=== PATIENT | female | born 1940 | race Caucasian/White ===

== ENCOUNTER 2017-08-13 10:39 | Inpatient (IN) | payer OTHER ==
[~2017-08-13] VITALS: Ht 157.5 cm; Wt 75.9 kg
[2017-08-13] VITALS (12 sets, daily range): BP systolic 126–165; BP diastolic 64–96; PULSE 68–94; TEMP 36.5–36.9; O2SAT 89–99; Ht 157.5 cm; Wt 75.9 kg
[~2017-08-13 10:39] MED LIST: ACET-1346 PO; ALBU0.08 INH; ALUM-80 PO; ASPI81TA28 PO; BISA10SU5 PR; DOCU100C31 PO; FOLI1TAB8 PO; IPRASOL4 INH; LACT10SO17 PO; LSN5 PO; LSX40 PO; MAGNSUS73 PO; MCRK20 PO; NRN300 PO; NYST100098 TOP; PANT40TA PO; POLY1POW2 PO; PRD10 PO; SENN-65 PO; SIMV40TA4 PO; SODIENE PR; TPRSR25 PO
[2017-08-13] MEDS ORDERED: GABA-113 PO (11:07)
[2017-08-13] MEDS ORDERED: PRLSR20 PO (11:07)
[2017-08-13] MEDS ORDERED: AMLO-114 PO (11:07)
[2017-08-13] MEDS ORDERED: MULT-16 PO (11:07)
[2017-08-13] MEDS ORDERED: VNTHFA/IN INH (11:07)
[2017-08-13] MEDS ORDERED: LISI-725 PO (11:07)
[2017-08-13] MEDS ORDERED: SODIUM CHLORIDE 0.9% 1000ML 1,000 ML IV SCH (11:11)
--- NOTE | 2017-08-13 11:13 | EMERGENCY ROOM VISIT NOTE ---
History Report prepared by Thuy: Remi العلي Under the Supervision of: Dr. Darryl Doe D.O. First contact with patient: 10:51 Chief Complaint: BACK PAIN Stated Complaint: BACK PAIN History of Present Illness The patient is a 77 year old female via EMS who presents to the Emergency Room with complaints of persistent back pain this morning. Per the medics, the patient went to bend over, and has had persistent back pain ever since then. She states that the pain is across the middle of her back, and she has had back pain before. She describes her pain as an "ache". 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 She states that she was able to use the left hand when she woke up, and the back pain started before the loss of use of the left hand. The patient denies any chest pain or shortness of breath. She notes no history of a stroke. She says that she is not on any blood thinners. Source of History: patient, EMS, nursing staff Onset: This morning Position: back Quality: ache, other (pain) Timing: other (persistent) Associated Symptoms: No chest pain, No SOB Note: Associated symptoms: Loss of use of left hand starting around an hour and a half ago. Review of Systems See HPI for pertinent positives & negatives. A total of 10 systems reviewed and were otherwise negative. Past Medical & Surgical Medical Problems: (1) Dyslipidemia (2) Gastro-esophageal reflux (3) HTN (hypertension) (4) Hypertension (5) PAD (peripheral artery disease) (6) Peripheral vascular disease (7) SOB (shortness of breath) Surgical Problems: (1) H/O bilateral oophorectomy (2) H/O left breast biopsy (3) H/O oophorectomy (4) History of appendectomy (5) History of cataract surgery (6) History of colonoscopy (7) Hx of appendectomy (8) S/P femoral-popliteal bypass surgery Family History Asthma BROTHER FH: CAD (coronary artery disease) FATHER FH: CVA (cerebrovascular accident) FH: arthritis FATHER MOTHER BROTHER SISTER FH: cancer SISTER (esophageal) FH: diabetes mellitus BROTHER FH: esophageal cancer Stroke FATHER MOTHER Social History Smoking Status: Current Every Day Smoker Alcohol Use: none Drug Use: none Marital Status: Housing Status: lives with family Occupation Status: retired Current/Historical Medications Scheduled Amlodipine (Norvasc), 5 MG PO DAILY Aspirin (Aspirin Ec), 81 MG PO DAILY Folic Acid (Folvite), 1 MG PO DAILY Gabapentin (Neurontin), 300-600 MG PO TID Lisinopril (Zestril), 40 MG PO TID Metoprolol Succinate (Metoprolol Succinate ER), 25 MG PO QAM Multiple Vitamins W/ Minerals (Thera-M), 1 TAB PO DAILY Omeprazole (Prilosec), 20 MG PO DAILY Simvastatin (Zocor), 40 MG PO QPM Scheduled PRN Acetaminophen (Acetaminophen), 650 MG PO Q4H PRN for Mild Pain Albuterol Hfa (Ventolin Hfa), 2-4 PUFFS INH Q6H PRN for SOB/Wheezing Allergies Coded Allergies: Adhesives (Verified Allergy, Unknown, ., 08/13/17) Benzoin (Verified Allergy, Unknown, ., 08/13/17) Hydrogen Peroxide (Verified Allergy, Unknown, ., 08/13/17) Ceftriaxone (Unverified Adverse Reaction, Unknown, burning at site of injection, 08/13/17) Physical Exam Vital Signs Date Time Temp Pulse Resp B/P (MAP) Pulse Ox O2 Delivery O2 Flow Rate FiO2 08/13/17 15:00 81 18 153/69 97 Room Air 08/13/17 14:30 77 18 175/78 99 Nasal Cannula 3.0 08/13/17 14:15 81 18 177/76 96 Nasal Cannula 3.0 08/13/17 14:15 99 Nasal Cannula 3.0 08/13/17 14:01 168 08/13/17 14:01 72 08/13/17 14:00 84 16 148/85 98 Nasal Cannula 3.0 08/13/17 13:45 82 16 130/80 98 Nasal Cannula 3.0 08/13/17 13:30 85 14 159/80 96 Nasal Cannula 3.0 08/13/17 13:28 87 Room Air 08/13/17 13:15 87 15 168/92 95 Room Air 08/13/17 13:04 74 08/13/17 13:00 75 17 176/103 96 Room Air 08/13/17 12:45 77 17 167/79 94 Room Air 08/13/17 12:31 77 14 165/78 94 Room Air 08/13/17 12:22 84 30 166/82 94 Room Air 08/13/17 12:05 83 16 145/79 93 Room Air 08/13/17 12:00 80 22 159/109 92 Room Air 08/13/17 11:43 93 Room Air 08/13/17 11:35 86 18 148/100 93 Room Air 08/13/17 10:52 85 08/13/17 10:48 37.0 77 18 154/81 98 Room Air Physical Exam GENERAL: Patient is awake, alert, somewhat anxious appearing. EYES: The conjunctivae are clear. The pupils are round and reactive. EARS, NOSE, MOUTH AND THROAT: The nose is without any evidence of any deformity. Mucous membranes are moist tongue is midline NECK: The neck is nontender and supple. RESPIRATORY: Normal respiratory effort is noted there is no evidence of wheezing rhonchi or rales CARDIOVASCULAR: Regular rate and rhythm noted there no murmurs rubs or gallops normal S1 normal S2 GASTROINTESTINAL: The abdomen is soft. Bowel sounds are present in all quadrants. Abdomen is nontender BACK: No midline tenderness or or step-off noted. Range of motion appeared intact. MUSCULOSKELETAL/EXTREMITIES: There is no evidence of gross deformity full range of motion is noted in the hips and shoulders SKIN: There is no obvious evidence of any rash. There are no petechiae, pallor or cyanosis noted. NEUROLOGIC: Patient is awake alert and oriented x3, no facial droop noted. There was a drift in the left upper extremity. Patient was able to hold each leg off the bed for 5 seconds. Medical Decision & Procedures ER Provider Diagnostic Interpretation: Radiology results as stated below per my review and radiologist interpretation: HEAD WITHOUT CONTRAST (CT) CT DOSE: 638.56 mGycm HISTORY: Mental status change Stroke TECHNIQUE: Multiaxial CT images of the head were performed without the use of intravenous contrast. A dose lowering technique was utilized adhering to the principles of ALARA. Comparison: None. Findings: The paranasal sinuses and mastoid air cells are clear. The calvarium and skull base are intact. The ventricles and sulci are within normal limits. There is no mass, hematoma, midline shift, or acute infarct. Impression: No acute intracranial abnormality. Mild age-related atrophy and chronic small vessel change The above report was generated using voice recognition software. It may contain grammatical, syntax or spelling errors. Electronically signed by: Pankaj Al M.D. 08/13/2017 11:34 AM Dictated Date/Time: 08/13/2017 11:33 AM Study: CT angiography of the chest HISTORY: Pain. Mental status change. Findings. Generalized atherosclerotic change and ectasia thoracic aorta. No evidence for true aneurysm or dissection. Several small mediastinal and/or hilar nodes. Mild interstitial prominence throughout both hemithoraces suggesting nonspecific interstitial pneumonitis. No consolidative infiltrative changes. Minimal dependent basilar atelectatic change. Moderate degenerative disc change of the thoracic region. No evidence for compression deformity. IMPRESSION: No evidence for aneurysm or dissection. 2. Moderate atherosclerotic change thoracic aorta. 3. Slight generalized interstitial prominence throughout both hemithoraces raising the possibility of a mild diffuse interstitial pneumonitis. Electronically signed by: Pankaj Al M.D. 08/13/2017 11:46 AM Dictated Date/Time: 08/13/2017 11:[address] ANGIOGRAM OF THE BRAIN CLINICAL HISTORY: Left arm weakness. COMPARISON STUDY: CT of the brain dated 08/13/2017. TECHNIQUE: Following the IV administration of 94 cc of Optiray 320, CT angiogram of the brain was performed from the skull base to the vertex. Images are reviewed in the axial, sagittal, and coronal planes. 3-D MIPS images are created and assessed. IV contrast was administered without complication. A dose lowering technique was utilized adhering to the principles of ALARA. FINDINGS: Brain parenchyma: There are age-related involutional changes noting mild subcortical and periventricular microangiopathic disease. There is no hemorrhage, mass effect, or evidence of acute territorial ischemia by CT criteria. There is no evidence of enhancing mass lesion on the angiogram phase images. No extra-axial fluid collection is seen. Zamorano-white matter differentiation is preserved. Ventricles, sulci, and cisterns: Prominent secondary to involutional change. CT angiogram of the brain: There is atherosclerotic calcification of the cavernous carotid arteries. There is a right posterior communicating artery. The internal carotid arteries are widely patent, as are the anterior and middle cerebral arteries. The vertebrobasilar system and posterior cerebral arteries are widely patent. The vertebral arteries are codominant. There is no aneurysm, high-grade stenosis, or focal vessel cutoff identified throughout the intracranial circulation. Dural sinuses: Clear as visualized. Orbits: The bony orbits are intact. The orbital contents are normal as visualized noting bilateral ocular lens implants. Sinuses and mastoids: Trace mucosal thickening is seen in the left maxillary antrum. The remaining paranasal sinuses are clear. The mastoid air cells are well pneumatized. Calvarium: The skeletal structures are osteopenic. The calvarium appears intact. Soft tissues: A small lipoma is noted in the right frontal scalp on image #131. IMPRESSION: 1. There is no hemorrhage, mass effect, or evidence of acute territorial ischemia by CT criteria. 2. Unremarkable CT angiogram of the brain. Electronically signed by: Jasper Lemus M.D. 08/13/2017 11:52 AM Dictated Date/Time: 08/13/2017 11:46 AM NECK CTA HISTORY: Left upper extremity weakness. Assess for stroke. TECHNIQUE: Multiaxial CT images of the neck were performed following the intravenous administration of contrast to evaluate the major cervical vessels. Maximum intensity projection images were also obtained. All measurements were calculated based on NASCET criteria. A dose lowering technique was utilized adhering to the principles of ALARA. COMPARISON STUDY: Head CT 08/13/2017. Carotid Doppler 03/09/2013. FINDINGS: The aortic arch is normal in caliber. Focal mild narrowing of approximately 30% at the takeoff of the left subclavian artery. Otherwise, the remaining great vessels are patent. Mild calcified plaque seen within the bilateral carotid bifurcations without significant stenosis. Tortuous bilateral mid internal carotid arteries. Of note, the majority of the external carotid artery branches originate from the mid right internal carotid artery consistent with a high bifurcation. There is mild calcified plaque at this location. The bilateral common carotid arteries are widely patent. No significant stenosis within the bilateral vertebral arteries. IMPRESSION: No significant stenosis, occlusion, or dissection identified within the carotid or vertebral arteries. 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 Electronically signed by: Checo Castillo M.D. 08/13/2017 11:47 AM Dictated Date/Time: 08/13/2017 11:41 AM CHEST ONE VIEW PORTABLE HISTORY: Stroke symptoms. Back pain. COMPARISON: Chest CTA 08/13/2017. FINDINGS: Low lung volumes. No pleural effusions. No pneumothorax. The heart remains top normal in size. No new focal lung consolidations. Mild diffuse interstitial thickening. IMPRESSION: 1. Mild diffuse interstitial thickening which could be chronic. 2. The heart remains top normal in size. Electronically signed by: Checo Castillo M.D. 08/13/2017 12:04 PM Dictated Date/Time: 08/13/2017 12:03 PM Laboratory Results Test 08/13/17 11:14 08/13/17 11:51 08/13/17 13:05 Bedside Prothrombin Time INR 1.1 (0.9-1.1) Bedside Hemoglobin 13.6 g/dl (12.0-16.0) Bedside Hematocrit 40 % (37-47) Hypersegmented Polys 1+ Activated Partial Thromboplast Time 29.8 SECONDS (21.0-31.0) Partial Thromboplastin Ratio 1.1 Bedside Sodium 138 mEq/L (135-144) Bedside Potassium 4.5 mEq/L (3.3-5.0) Bedside Chloride 100 mEq/L (101-112) Bedside Total CO2 30 mEq/l (24-31) Bedside Blood Urea Nitrogen 15 mg/dl (7-18) Bedside Creatinine 0.8 mg/dl (0.6-1.3) Bedside Glucose (other) 142 mg/dl (70-99) Estimated Average Glucose 126 mg/dl Hemoglobin A1c 6.0 % (4.5-5.6) Bedside Ionized Calcium (Saroj) 1.16 mmol/l (1.12-1.32) Total Creatine Kinase 32 U/L (26-192) Creatine Kinase MB 0.5 ng/ml (0.5-3.6) Creatine Kinase MB Ratio 1.6 (0-3.0) Procalcitonin 0.08 ng/ml (0-0.5) Urine Color YELLOW Urine Appearance CLEAR (CLEAR) Urine pH 8.0 (4.5-7.5) Urine Specific Napoleon 1.038 (1.000-1.030) Urine Protein NEG (NEG) Urine Glucose (UA) NEG (NEG) Urine Ketones NEG (NEG) Urine Occult Blood 1+ (NEG) Urine Nitrite NEG (NEG) Urine Bilirubin NEG (NEG) Urine Urobilinogen NEG (NEG) Urine Leukocyte Esterase NEG (NEG) Urine WBC (Auto) 0 /hpf (0-5) Urine RBC (Auto) 10-30 /hpf (0-4) Urine Hyaline Casts (Auto) 0 /lpf (0-5) Urine Epithelial Cells (Auto) 20-30 /lpf (0-5) Urine Bacteria (Auto) NEG (NEG) Date/Time Source Procedure Growth Status 08/13/17 00:00 Nasal MRSA DNA Surveillance Screen - Final Specimen Negative for MRSA by DNA Probe Complete Laboratory results per my review. Medications Administered Medications (Trade) Dose Ordered Sig/Jessica Route Start Time Stop Time Status Last Admin Dose Admin Sodium Chloride 1,000 ml @ 50 mls/hr Q20H IV 08/13/17 11:11 08/13/17 17:32 DC 08/13/17 11:51 50 MLS/HR Alteplase, Recombinant 66.6 mg/Empty Bag 66.6 ml @ 66.6 mls/hr TODAY@1230 ONCE IV 08/13/17 12:30 08/13/17 13:29 DC 08/13/17 12:39 66.6 MLS/HR Alteplase, Recombinant 7.4 mg/Syringe 7.4 ml @ 7.4 mls/min TODAY@1230 IV 08/13/17 12:30 08/13/17 14:00 DC 08/13/17 12:40 7.4 MLS/MIN Ondansetron HCl (Zofran Inj) 4 mg NOW STAT IV 08/13/17 13:15 08/13/17 13:16 DC 08/13/17 13:28 4 MG Morphine Sulfate (MoRPHine SULFATE INJ) 4 mg Q15M PRN IV 08/13/17 13:15 08/13/17 17:32 DC 08/13/17 13:28 4 MG Acetaminophen (Tylenol Tab) 650 mg Q4H PRN PO 08/13/17 15:00 09/12/17 14:59 08/14/17 05:59 650 MG Morphine Sulfate (MoRPHine SULFATE INJ) 2 mg Q6H PRN IV 08/13/17 15:00 08/27/17 14:59 08/14/17 13:57 2 MG ECG Indication: weakness Rate (beats per minute): 83 Rhythm: normal sinus Findings: ST depression (Inferior), no ectopy Comparison ECG Date: changes are new compared to November 30 2015 ED Course 1107: The patient was evaluated in room A2. A complete history and physical examination were performed. 1111: Ordered NSS 1000 ml @ 50 mls/hr IV. 1202: I discussed the patient with Dr. Paco Christopher vascular neurology. 1226: I discussed the patient with Dr. Paco Christopher vascular neurology - we are a go for TPA. 1227: I reevaluated the patient and updated her and her family. 1230: Ordered Alteplase Recombinant 7.4 mg/Syringe 7.4 ml @ 7.4 mls/min IV. 1306: Upon reevaluation, the patient is resting. I discussed results and treatment plan with her. She verbalizes agreement and understanding. The patient will be evaluated for further management and care. 1320: I discussed the patient with Neha Martines. She will evaluate the patient for further treatment. 1338: I discussed the patient with Dr. Kay Martines cardiology. Medical Decision Differential diagnosis: Etiologies such as metabolic, infection, hypo/hyperglycemia, electrolyte abnormalities, cardiac sources, intracerebral event, toxicologic, neurologic, as well as others were entertained. Nursing notes reviewed. The patient is a 77-year-old female who presented to the emergency Department initially for back pain. On my questioning the patient admitted that she also had problems using her left arm since approximately 9 a.m. this morning. The patient was made a stroke alert immediately after this was discovered. The patient also stated that she had very significant back pain which she describes as thoracic back pain. It was not reproducible on physical exam. Given the patient's overall presentation I was concerned this could represent a dissection so radiographic studies were obtained including CT of the head neck and chest with contrast and angiography. There is no definite abnormality noted which could be consistent with dissection or stroke. For this reason I discussed her case with the stroke neurologist at [facility]. Because no other obvious contraindication could be found the patient was given TPA after discussing with the patient as well as her family via the stroke neurologist they consented to this care. The patient was reevaluated multiple times. She started having other symptoms and had serial EKGs. Her EKG did start to show some abnormalities which could be consistent with ischemia including ST segment depression and peaked hyperacute T waves. Certainly this could represent cerebral changes on the EKG but because of the changes I discussed her case with the on-call [facility] sub assembly team worker. I also discussed her case with the on-call [facility] hospitalist group. They have agreed to evaluate the patient in the emergency department for further management and disposition. The patient was reevaluated multiple times. She was found have an elevated white blood cell count although I'm unsure the cause of this at this time. Medication Reconcilliation Current Medication List: was personally reviewed by me Blood Pressure Screening Patient's blood pressure: Elevated blood pressure Blood pressure disposition: Elevated BP felt to be situational Consults Time Called: 1153 Consulting Physician: Dr. Paco Christopher vascular neurology Returned Call: 1202 I discussed the patient with Dr. Paco Christopher vascular neurology. Additional Consults: Time Called: 1224 Consulted Physician: Dr. Paco Christopher vascular neurology Returned Call: 1226 Additional Comments: I discussed the patient with Dr. Paco Christopher vascular neurology - we are a go for TPA. Time Called: 1315 Consulted Physician: Neha Martines Returned Call: 1320 Additional Comments: I discussed the patient with Neha Martines. She will evaluate the patient for further treatment. Impression Primary Impression: LUE weakness Additional Impressions: CVA (cerebral vascular accident) Back pain EKG, abnormal Critical Care I have personally spent greater than 40 minutes of critical care time in the direct management of this patient. This includes bedside care, interpretation of diagnostic studies, and testing, discussion with consultants, patient, and family members, and other required patient management activities. This 40 minutes is in excess of all separately billable procedures. Scribe Attestation The scribe's documentation has been prepared under my direction and personally reviewed by me in its entirety. I confirm that the note above accurately reflects all work, treatment, procedures, and medical decision making performed by me. Departure Information Dispostion Being Evaluated By Hospitalist Referrals Lora Jackson M.D. (MEDICAL) (PCP) Patient Instructions My [facility] Stroke History Time Last Known Well 0900 today Stroke t-PA Criteria Reviewed Meets criteria for t-PA Reason t-PA Not Given Treatment provided - N/A Problem Qualifiers Additional Impressions: CVA (cerebral vascular accident) CVA mechanism: unspecified Qualified Codes: I63.9 - Cerebral infarction, unspecified Back pain Back pain location: thoracic back pain Chronicity: acute Back pain laterality: midline Qualified Codes: M54.6 - Pain in thoracic spine
[2017-08-13] MEDS ORDERED: OPTIRAY 320 IV PRN (11:30)
--- NOTE | 2017-08-13 11:35 | DIAGNOSTIC IMAGING REPORT ---
HEAD WITHOUT CONTRAST (CT) CT DOSE: 638.56 mGycm HISTORY: Mental status change Stroke TECHNIQUE: Multiaxial CT images of the head were performed without the use of intravenous contrast. A dose lowering technique was utilized adhering to the principles of ALARA. Comparison: None. Findings: The paranasal sinuses and mastoid air cells are clear. The calvarium and skull base are intact. The ventricles and sulci are within normal limits. There is no mass, hematoma, midline shift, or acute infarct. Impression: No acute intracranial abnormality. Mild age-related atrophy and chronic small vessel change The above report was generated using voice recognition software. It may contain grammatical, syntax or spelling errors. Electronically signed by: Pankaj Al M.D. 08/13/2017 11:34 AM Dictated Date/Time: 08/13/2017 11:33 AM
--- NOTE | 2017-08-13 11:47 | DIAGNOSTIC IMAGING REPORT ---
Study: CT angiography of the chest HISTORY: Pain. Mental status change. Findings. Generalized atherosclerotic change and ectasia thoracic aorta. No evidence for true aneurysm or dissection. Several small mediastinal and/or hilar nodes. Mild interstitial prominence throughout both hemithoraces suggesting nonspecific interstitial pneumonitis. No consolidative infiltrative changes. Minimal dependent basilar atelectatic change. Moderate degenerative disc change of the thoracic region. No evidence for compression deformity. IMPRESSION: No evidence for aneurysm or dissection. 2. Moderate atherosclerotic change thoracic aorta. 3. Slight generalized interstitial prominence throughout both hemithoraces raising the possibility of a mild diffuse interstitial pneumonitis. Electronically signed by: Pankaj Al M.D. 08/13/2017 11:46 AM Dictated Date/Time: 08/13/2017 11:39 AM
--- NOTE | 2017-08-13 11:48 | DIAGNOSTIC IMAGING REPORT ---
NECK CTA HISTORY: Left upper extremity weakness. Assess for stroke. TECHNIQUE: Multiaxial CT images of the neck were performed following the intravenous administration of contrast to evaluate the major cervical vessels. Maximum intensity projection images were also obtained. All measurements were calculated based on NASCET criteria. A dose lowering technique was utilized adhering to the principles of ALARA. COMPARISON STUDY: Head CT 08/13/2017. Carotid Doppler 03/09/2013. FINDINGS: The aortic arch is normal in caliber. Focal mild narrowing of approximately 30% at the takeoff of the left subclavian artery. Otherwise, the remaining great vessels are patent. Mild calcified plaque seen within the bilateral carotid bifurcations without significant stenosis. Tortuous bilateral mid internal carotid arteries. Of note, the majority of the external carotid artery branches originate from the mid right internal carotid artery consistent with a high bifurcation. There is mild calcified plaque at this location. The bilateral common carotid arteries are widely patent. No significant stenosis within the bilateral vertebral arteries. IMPRESSION: No significant stenosis, occlusion, or dissection identified within the carotid or vertebral arteries. 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 Electronically signed by: Checo Castillo M.D. 08/13/2017 11:47 AM Dictated Date/Time: 08/13/2017 11:41 AM
--- NOTE | 2017-08-13 11:54 | DIAGNOSTIC IMAGING REPORT ---
CT ANGIOGRAM OF THE BRAIN CLINICAL HISTORY: Left arm weakness. COMPARISON STUDY: CT of the brain dated 08/13/2017. TECHNIQUE: Following the IV administration of 94 cc of Optiray 320, CT angiogram of the brain was performed from the skull base to the vertex. Images are reviewed in the axial, sagittal, and coronal planes. 3-D MIPS images are created and assessed. IV contrast was administered without complication. A dose lowering technique was utilized adhering to the principles of ALARA. FINDINGS: Brain parenchyma: There are age-related involutional changes noting mild subcortical and periventricular microangiopathic disease. There is no hemorrhage, mass effect, or evidence of acute territorial ischemia by CT criteria. There is no evidence of enhancing mass lesion on the angiogram phase images. No extra-axial fluid collection is seen. Zamorano-white matter differentiation is preserved. Ventricles, sulci, and cisterns: Prominent secondary to involutional change. CT angiogram of the brain: There is atherosclerotic calcification of the cavernous carotid arteries. There is a right posterior communicating artery. The internal carotid arteries are widely patent, as are the anterior and middle cerebral arteries. The vertebrobasilar system and posterior cerebral arteries are widely patent. The vertebral arteries are codominant. There is no aneurysm, high-grade stenosis, or focal vessel cutoff identified throughout the intracranial circulation. Dural sinuses: Clear as visualized. Orbits: The bony orbits are intact. The orbital contents are normal as visualized noting bilateral ocular lens implants. Sinuses and mastoids: Trace mucosal thickening is seen in the left maxillary antrum. The remaining paranasal sinuses are clear. The mastoid air cells are well pneumatized. Calvarium: The skeletal structures are osteopenic. The calvarium appears intact. Soft tissues: A small lipoma is noted in the right frontal scalp on image #131. IMPRESSION: 1. There is no hemorrhage, mass effect, or evidence of acute territorial ischemia by CT criteria. 2. Unremarkable CT angiogram of the brain. Electronically signed by: Jasper Lemus M.D. 08/13/2017 11:52 AM Dictated Date/Time: 08/13/2017 11:46 AM
[2017-08-13 12:03] LABS: HEMATOCRIT 41.6 % (37-47); HEMOGLOBIN 13.9 g/dL (12.0-16.0); MEAN CELL VOLUME 93.9 fL (80-100); MEAN CORPUSCULAR HEMOGLOBIN 31.4 pg (25-34); MEAN CORPUSCULAR HGB CONC 33.4 g/dl (32-36); MEAN PLATELET VOLUME 11.4 fL (7.4-10.4); PLATELET COUNT 279 K/uL (130-400); RED CELL DISTRIBUTION WIDTH CV 14.5 % (11.5-14.5); RED CELL DISTRIBUTION WIDTH SD 49.8 fL (36.4-46.3); WHITE BLOOD COUNT 20.39 K/uL (4.8-10.8)
--- NOTE | 2017-08-13 12:06 | DIAGNOSTIC IMAGING REPORT ---
CHEST ONE VIEW PORTABLE HISTORY: Stroke symptoms. Back pain. COMPARISON: Chest CTA 08/13/2017. FINDINGS: Low lung volumes. No pleural effusions. No pneumothorax. The heart remains top normal in size. No new focal lung consolidations. Mild diffuse interstitial thickening. IMPRESSION: 1. Mild diffuse interstitial thickening which could be chronic. 2. The heart remains top normal in size. Electronically signed by: Checo Castillo M.D. 08/13/2017 12:04 PM Dictated Date/Time: 08/13/2017 12:03 PM
[2017-08-13 12:21] LABS: CALCIUM 8.9 mg/dl (8.5-10.1); CREATININE 0.85 mg/dl (0.60-1.20); POTASSIUM 4.4 mmol/L (3.5-5.1)
[2017-08-13 12:26] LABS: BASO % 0.2 %; BASO ABS # 0.04 K/uL (0-0.2); CKMB 0.5 ng/ml (0.5-3.6); EOS % 0.2 %; EOS ABS # 0.05 K/uL (0-0.5); IG# 0.09 K/uL (0.00-0.02); LYMPH % 6.3 %; LYMPH ABS # 1.28 K/uL (1.2-3.4); MONO ABS # 3.87 K/uL (0.11-0.59); NEUT % 73.9 %; NEUT ABS # 15.06 K/uL (1.4-6.5)
[2017-08-13 12:27] LABS: PTT PATIENT 29.8 SECONDS (21.0-31.0)
[2017-08-13] MEDS ORDERED: ALTEPLASE IV ONE (12:30)
[2017-08-13] MEDS ORDERED: ALTEPLASE IV SCH (12:30)
[2017-08-13] MEDS ORDERED: RECOMBINANT IV ONE (12:30)
[2017-08-13] MEDS ORDERED: RECOMBINANT IV SCH (12:30)
[2017-08-13] MEDS ORDERED: SET 2260-0500 IV ONE (12:30)
[2017-08-13] MEDS ORDERED: MoRPHine SULFATE 4 MG/ML 1 ML CARP\\VIAL IV PRN (13:15)
[2017-08-13] MEDS ORDERED: ONDANSETRON INJ 2 MG/ML 2 ML VIAL IV STA (13:15)
--- NOTE | 2017-08-13 14:04 | History and Physical ---
History & Physical Date & Time of Service: Aug 13, 2017 at 14:04 Chief Complaint: Back Pain Primary Care Physician: Lora Jackson M.D. (MEDICAL) History of Present Illness Source: patient Patient is a 77 yr female with PMH of PVD, HLP, HTN, GERD, CKD III and other problems presents with history of back pain and LUE weakness which started today. 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 She sates that she was not able to move her fingers and "I felt funny". Patient states back pain is non radiating, dull, constant which improved while in ED and has history of chronic back pain. She reports nausea but denies vomiting. Patient had CT head which showed no acute findings and ED physician discussed with [facility] neurology and patient received tPA while in ED. Patient later showed some improvement of LUE weakness post tPA. Denies any history of chest pain, SOB, dizziness, cough, fever, chills, fall, head trauma, LOC, headache, change in vision, double/blurry vision, vertigo, slurred speech, facial deformity, bowel/bladder incontinence, abdominal pain, diarrhea, dysuria. She is on Aspirin at home and admits to taking it today Past Medical/Surgical History Medical Problems: (1) Dyslipidemia Status: Chronic (2) Gastro-esophageal reflux Status: Chronic (3) HTN (hypertension) Status: Chronic (4) Hypertension Status: Chronic (5) PAD (peripheral artery disease) Status: Chronic (6) Peripheral vascular disease Status: Chronic Surgical Problems: (1) H/O bilateral oophorectomy Status: Resolved (2) H/O left breast biopsy Status: Resolved (3) H/O oophorectomy Status: Resolved (4) History of appendectomy Status: Resolved (5) History of cataract surgery Status: Resolved (6) History of colonoscopy Status: Resolved (7) Hx of appendectomy Status: Resolved (8) S/P femoral-popliteal bypass surgery Status: Resolved Family History Asthma BROTHER FH: CAD (coronary artery disease) FATHER FH: CVA (cerebrovascular accident) FH: arthritis FATHER MOTHER BROTHER SISTER FH: cancer SISTER (esophageal) FH: diabetes mellitus BROTHER FH: esophageal cancer Stroke FATHER MOTHER Reviewed Social History Smoking Status: Current Every Day Smoker Alcohol Use: none Drug Use: none Marital Status: Housing status: lives with family Occupational Status: retired Immunizations History of Influenza Vaccine: Yes Influenza Vaccine Date: Aug 09, 2012 History of Tetanus Vaccine?: Yes Tetanus Immunization Date: December 15, 2001 History of Pneumococcal: Yes Pneumococcal Date: Jan 07, 2013 History of Hepatitis B Vaccine: Unknown Hepatitis Immunization Date: December 15, 2001 Multi-Drug Resistant Organisms History of MDRO: No Allergies Coded Allergies: Adhesives (Verified Allergy, Unknown, ., 08/13/17) Benzoin (Verified Allergy, Unknown, ., 08/13/17) Hydrogen Peroxide (Verified Allergy, Unknown, ., 08/13/17) Ceftriaxone (Unverified Adverse Reaction, Unknown, burning at site of injection, 08/13/17) Home Medications Scheduled Amlodipine (Norvasc), 5 MG PO DAILY Aspirin (Aspirin Ec), 81 MG PO DAILY Folic Acid (Folvite), 1 MG PO DAILY Gabapentin (Neurontin), 300-600 MG PO TID Lisinopril (Zestril), 40 MG PO TID Metoprolol Succinate (Metoprolol Succinate ER), 25 MG PO QAM Multiple Vitamins W/ Minerals (Thera-M), 1 TAB PO DAILY Omeprazole (Prilosec), 20 MG PO DAILY Simvastatin (Zocor), 40 MG PO QPM Scheduled PRN Acetaminophen (Acetaminophen), 650 MG PO Q4H PRN for Mild Pain Albuterol Hfa (Ventolin Hfa), 2-4 PUFFS INH Q6H PRN for SOB/Wheezing Review of Systems See HPI for pertinent positives & negatives. A total of 10 systems reviewed and were otherwise negative. Physical Exam Vital Signs Date Time Temp Pulse Resp B/P (MAP) Pulse Ox O2 Delivery O2 Flow Rate FiO2 08/13/17 13:45 82 16 130/80 98 Nasal Cannula 3.0 08/13/17 13:30 85 14 159/80 96 Nasal Cannula 3.0 08/13/17 13:28 87 Room Air 08/13/17 13:15 87 15 168/92 95 Room Air 08/13/17 13:04 74 08/13/17 13:00 75 17 176/103 96 Room Air 08/13/17 12:45 77 17 167/79 94 Room Air 08/13/17 12:31 77 14 165/78 94 Room Air 08/13/17 12:22 84 30 166/82 94 Room Air 08/13/17 12:05 83 16 145/79 93 Room Air 08/13/17 12:00 80 22 159/109 92 Room Air 08/13/17 11:43 93 Room Air 08/13/17 11:35 86 18 148/100 93 Room Air 08/13/17 10:52 85 08/13/17 10:48 37.0 77 18 154/81 98 Room Air General Appearance: WD/WN, no apparent distress Head: normocephalic, atraumatic Eyes: normal inspection, PERRL, EOMI, sclerae normal ENT: normal ENT inspection, hearing grossly normal Neck: supple, trachea midline Respiratory/Chest: chest non-tender, lungs clear, no respiratory distress, no accessory muscle use, + decreased breath sounds Cardiovascular: regular rate, rhythm, no edema, no murmur Abdomen/GI: normal bowel sounds, non tender, soft Back: + pertinent finding (Mid thoracic tenderness of spine) Extremities/Musculoskelatal: normal inspection, no pedal edema 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, alert, normal mood/affect, oriented x 3, + pertinent finding (Left upper extrtemity weakness, sensation intact) Skin: normal color, warm/dry Diagnostics Laboratory Results Results Past 24 Hours Test 08/13/17 11:14 08/13/17 11:51 08/13/17 13:05 Range/Units Bedside Prothrombin Time INR 1.1 0.9-1.1 White Blood Count 20.39 4.8-10.8 K/uL Red Blood Count 4.43 4.2-5.4 M/uL Hemoglobin 13.9 12.0-16.0 g/dL Hematocrit 41.6 37-47 % Mean Corpuscular Volume 93.9 80-100 fL Mean Corpuscular Hemoglobin 31.4 25-34 pg Mean Corpuscular Hemoglobin Concent 33.4 32-36 g/dl Platelet Count 279 130-400 K/uL Mean Platelet Volume 11.4 7.4-10.4 fL Neutrophils (%) (Auto) 73.9 % Lymphocytes (%) (Auto) 6.3 % Monocytes (%) (Auto) 19.0 % Eosinophils (%) (Auto) 0.2 % Basophils (%) (Auto) 0.2 % Neutrophils # (Auto) 15.06 1.4-6.5 K/uL Lymphocytes # (Auto) 1.28 1.2-3.4 K/uL Monocytes # (Auto) 3.87 0.11-0.59 K/uL Eosinophils # (Auto) 0.05 0-0.5 K/uL Basophils # (Auto) 0.04 0-0.2 K/uL RDW Standard Deviation 49.8 36.4-46.3 fL RDW Coefficient of Variation 14.5 11.5-14.5 % Immature Granulocyte % (Auto) 0.4 % Immature Granulocyte # (Auto) 0.09 0.00-0.02 K/uL Hypersegmented Polys 1+ Prothrombin Time 10.7 9.0-12.0 SECONDS Prothromb Time International Ratio 1.0 0.9-1.1 Activated Partial Thromboplast Time 29.8 21.0-31.0 SECONDS Partial Thromboplastin Ratio 1.1 Sodium Level 137 136-145 mmol/L Potassium Level 4.4 3.5-5.1 mmol/L Chloride Level 103 98-107 mmol/L Carbon Dioxide Level 29 21-32 mmol/L Anion Gap 5.0 3-11 mmol/L Blood Urea Nitrogen 16 7-18 mg/dl Creatinine 0.85 0.60-1.20 mg/dl Est Creatinine Clear Calc Drug Dose 56.5 ml/min Estimated GFR () 77.7 Estimated GFR (Non- 67.0 BUN/Creatinine Ratio 18.9 10-20 Random Glucose 142 70-99 mg/dl Calcium Level 8.9 8.5-10.1 mg/dl Magnesium Level 2.1 1.8-2.4 mg/dl Total Creatine Kinase 32 26-192 U/L Creatine Kinase MB 0.5 0.5-3.6 ng/ml Creatine Kinase MB Ratio 1.6 0-3.0 Troponin I 0.031 0-0.045 ng/ml Urine Color YELLOW Urine Appearance CLEAR CLEAR Urine pH 8.0 4.5-7.5 Urine Specific [place] 1.038 1.000-1.030 Urine Protein NEG NEG Urine Glucose (UA) NEG NEG Urine Ketones NEG NEG Urine Occult Blood 1+ NEG Urine Nitrite NEG NEG Urine Bilirubin NEG NEG Urine Urobilinogen NEG NEG Urine Leukocyte Esterase NEG NEG Urine WBC (Auto) 0 0-5 /hpf Urine RBC (Auto) 10-30 0-4 /hpf Urine Hyaline Casts (Auto) 0 0-5 /lpf Urine Epithelial Cells (Auto) 20-30 0-5 /lpf Urine Bacteria (Auto) NEG NEG Diagnostic Radiology CT Head: No acute intracranial abnormality. Mild age-related atrophy and chronic small vessel change CXR: 1. Mild diffuse interstitial thickening which could be chronic. 2. The heart remains top normal in size. CT dissection: No evidence for aneurysm or dissection. 2. Moderate atherosclerotic change thoracic aorta. 3. Slight generalized interstitial prominence throughout both hemithoraces raising the possibility of a mild diffuse interstitial pneumonitis. CT angio Brain: 1. There is no hemorrhage, mass effect, or evidence of acute territorial ischemia by CT criteria. 2. Unremarkable CT angiogram of the brain. CTA neck: No significant stenosis, occlusion, or dissection identified within the carotid or vertebral arteries. 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 ECHO: Left ventricular systolic function is normal. * Ejection Fraction = 65-70%. * There is mild concentric left ventricular hypertrophy. * The left atrium is moderately dilated. * There is severe mitral annular calcification. * There is mild mitral regurgitation. * Aortic valve sclerosis moderate, without significant aortic valvular stenosis. * Grade I diastolic dysfunction, (abnormal relaxation pattern). EKG EKG: NSR, Peaked T waves in I, II, V3, V4, V5, Non specific ST changes in inferior lead Impression Assessment and Plan Acute CVA: S/P tPA Admit in ICU CT head: showed no acute pathology CTA Head, neck: No acute process CT dissection: Negative Stroke work up including lipid panel, A1C, MRI Brain, ECHO Speech and swallow eval Hold aspirin as S/P tPA Continue Lipitor Neuro checks, Neurology/Client Technical Professional consulted PT/OT Allow permissive HTN in setting of acute CVA Repeat CT head in AM Avoid antiplatelets, anticoagulants for now Back Pain: H/O chronic back pain CT dissection: Negative Will get X ray of spine Pain control PT/OT Consider CT if necessary Leukocytosis/Lactic acidosis: No obvious source of infection Normal Procalcitonin CXR:Mild diffuse interstitial thickening which could be chronic UA: no signs of UTI IV fluids Repeat Lactate levels No Abx for now Abnormal ECG: ST -T wave changes likely secondary to CVA No regional wall motion abnormalities noted on ECHO Troponin: negative Trend cardiac enzymes PVD/ HLP: Hold Aspirin Continue Lipitor HTN: Hold HTN meds for permissive HTN GERD Continue PPI CKD III Cr at baseline monitor renal function Ongoing 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
[2017-08-13] MEDS ORDERED: ICU PROTOCOL FOR HYPERGLYCEMIA PRN (15:00)
[2017-08-13] MEDS ORDERED: NITROGLYCERIN 0.4 MG SL PER TAB CHARGE SL PRN (15:00)
[2017-08-13] MEDS ORDERED: PHARMACIST DISCHARGE MED REC CONSULT PRN (15:00)
[2017-08-13] MEDS ORDERED: ALBUTEROL HFA 8 GM INHALER INH PRN (15:15)
[2017-08-13] MEDS ORDERED: ALBUT/IPRATROP 3MG/0.5MG NEB 3 ML VIAL INH PRN (15:15)
[2017-08-13] MEDS ORDERED: ATORVASTATIN 40 MG TAB PO ONE (15:15)
[2017-08-13] MEDS ORDERED: SODIUM CHLORIDE 0.9% 1000ML 1,000 ML IV ONE ×2 (15:30→22:45)
[2017-08-13] MEDS ORDERED: ONDANSETRON INJ 2 MG/ML 2 ML VIAL IV PRN (15:30)
--- NOTE | 2017-08-13 17:00 | ECHOCARDIOGRAM REPORT ---
*NOTICE TO RECEIVING CONSTITUTION PARTY AGENCY This information is strictly Confidential and protected under [place] law. [place] law prohibits you from making any further disclosure of this information unless further disclosure is expressly permitted by the written consent of the person to whom it pertains or is authorized by law. A general authorization for the release of medical or other information is not sufficient for this purpose. Hospital accepts no responsibility if the information is made available to any other person, INCLUDING THE PATIENT. Interpretation Summary * Name: LOS CALHOUN Study Date: 08/13/2017 02:58 PM BP: 175/78 mmHg * Patient Location: [facility] HR: 77 * : 1940 (M/d/yyyy) Gender: Female Height: 62 in * Age: 77 yrs Ethnicity: CA Weight: 179 lb * Ordering Physician: Darryl Doe * Referring Physician: Self, Referred * Performed By: Becca Perez RDCS * * Reason For Study: Chest pain * BSA: 1.8 m2 * The study was technically adequate. * Compared to prior study, changes are noted. * -- Conclusions -- * Left ventricular systolic function is normal. * Ejection Fraction = 65-70%. * There is mild concentric left ventricular hypertrophy. * The left atrium is moderately dilated. * There is severe mitral annular calcification. * There is mild mitral regurgitation. * Aortic valve sclerosis moderate, without significant aortic valvular stenosis. * Grade I diastolic dysfunction, (abnormal relaxation pattern). Procedure Details * A complete two-dimensional transthoracic echocardiogram was performed (2D, M-mode, Doppler and color flow Doppler). * A contrast injection of Definity was performed to improve assessment of LV function. * Contrast was injected into an intravenous site in the right arm. * One vial of Definity ultrasound contrast was diluted in normal saline to a total volume of 10 ml. A total of '2' ml of solution was administered during imaging. * Lot # [id number] of Definity utilized for procedure. * Expiration date SEP 22. * The attending nurse who injected the contrast agent was Zackery Menard RN. Left Ventricle * The left ventricle is normal in size. * There is no thrombus. * There is mild concentric left ventricular hypertrophy. * Ejection Fraction = 65-70%. * Left ventricular systolic function is normal. * No regional wall motion abnormalities noted. Right Ventricle * The right ventricle is normal size. * The right ventricular systolic function is normal as assessed by tricuspid annular plane systolic excursion (TAPSE) (normal >1.5 cm). Atria * The left atrium is moderately dilated. * Right atrial size is normal. * There is no evidence of atrial septal defect, but resolution does not allow assessment for a patent foramen ovale. Mitral Valve * There is severe mitral annular calcification. * There is no mitral valve stenosis. * There is mild mitral regurgitation. Tricuspid Valve * The tricuspid valve is normal. * There is no tricuspid stenosis. * Significant tricuspid regurgitation is absent. Aortic Valve * The aortic valve is trileaflet. * Aortic valve sclerosis moderate, without significant aortic valvular stenosis. * Aortic stenosis is absent. * There is no significant aortic regurgitation. Pulmonic Valve * The pulmonary valve is not well seen, but the Doppler examination is normal without significant regurgitation or stenosis. Great Vessels * The aortic root and proximal ascending aorta are normal sized. Pericardium/Pleural * There is no pericardial effusion. Great Vessels * Normal inferior vena cava diameter and respiratory variation suggests normal central venous pressure. Left Ventricular Diastolic Function * Grade I diastolic dysfunction, (abnormal relaxation pattern). MMode 2D Measurements and Calculations IVSd 1.0 cm LVIDd 4.1 cm LVIDs 2.9 cm LVPWd 10 cm IVS/LVPW 1.0 FS 30.1 % EDV(Teich) 75.9 ml ESV(Teich) 32.0 ml EF(Teich) 57.9 % EDV(cubed) 70.9 ml ESV(cubed) 24.2 ml EF(cubed) 65.9 % LV mass(C)d 135.1 grams LV mass(C)dI 74.1 grams/m\S\2 SV(Teich) 43.9 ml SI(Teich) 24.1 ml/m\S\2 SV(cubed) 46.7 ml SI(cubed) 25.6 ml/m\S\2 Ao root diam 2.7 cm Ao root area 5.8 cm\S\2 ACS 1.2 cm LA dimension 4.7 cm asc Aorta Diam 2.9 cm LA/Ao 1.7 LVOT diam 1.9 cm LVOT area 2.9 cm\S\2 LVAd ap4 28.9 cm\S\2 LVLd ap4 7.2 cm EDV(MOD-sp4) 95.6 ml EDV(sp4-el) 98.5 ml LVAs ap4 16.5 cm\S\2 LVLs ap4 5.6 cm ESV(MOD-sp4) 39.0 ml ESV(sp4-el) 41.0 ml EF(MOD-sp4) 59.2 % EF(sp4-el) 58.4 % LVAd ap2 26.2 cm\S\2 LVLd ap2 7.2 cm EDV(MOD-sp2) 76.9 ml EDV(sp2-el) 81.0 ml LVAs ap2 14.7 cm\S\2 LVLs ap2 5.6 cm ESV(MOD-sp2) 31.9 ml ESV(sp2-el) 32.7 ml EF(MOD-sp2) 58.5 % EF(sp2-el) 59.7 % LVLd %diff 0 % EDV(MOD-bp) 85.8 ml LVLs %diff -0.05 % ESV(MOD-bp) 35.1 ml EF(MOD-bp) 59.1 % SV(MOD-sp4) 56.6 ml SI(MOD-sp4) 31.0 ml/m\S\2 SV(MOD-sp2) 44.9 ml SI(MOD-sp2) 24.6 ml/m\S\2 SV(MOD-bp) 50.7 ml SI(MOD-bp) 27.8 ml/m\S\2 SV(sp4-el) 57.5 ml SI(sp4-el) 31.5 ml/m\S\2 SV(sp2-el) 48.3 ml SI(sp2-el) 26.5 ml/m\S\2 Doppler Measurements and Calculations MV E max luisa 128.5 cm/sec MV A max luisa 154.2 cm/sec MV E/A 0.83 MV dec time 0.27 sec Ao V2 max 150.7 cm/sec Ao max PG 9.1 mmHg Ao max PG (full) 1.3 mmHg SERGEY(V,A) 2.7 cm\S\2 SERGEY(V,D) 2.7 cm\S\2 LV V1 max PG 7.8 mmHg LV V1 max 139.6 cm/sec PA V2 max 89.6 cm/sec PA max PG 3.2 mmHg PA acc slope 469.8 cm/sec\S\2 PA acc time 0.14 sec TR max luisa 257.9 cm/sec PA pr(Accel) 17.2 mmHg
[2017-08-13] MEDS ORDERED: SODIUM CHLORIDE 0.9% 1000ML 500 ML IV ONE (17:15)
--- NOTE | 2017-08-13 17:38 | DIAGNOSTIC IMAGING REPORT ---
ULTRASOUND OF THE CAROTID ARTERIES CLINICAL HISTORY: Stroke COMPARISON STUDY: 03/09/2013, MR angiography neck dated 08/13/2017 TECHNIQUE: Real-time, grayscale, and color Doppler sonography of the carotid arteries was performed. Imaging reviewed in the transverse and longitudinal planes. NASCET criteria was utilized for stenosis calcification. FINDINGS: There is a high bifurcation. The distal internal carotid arteries were difficult to delineate. Right external carotid artery was nonvisualized. There is mild atherosclerotic plaque present . The peak systolic velocity within the right internal carotid artery is 151 cm/sec. The systolic velocity ratio of right internal to common carotid artery is 2.4. The peak systolic velocity within the left internal carotid artery is 106 cm/sec. The systolic velocity ratio left internal to common carotid artery is 1.5. Antegrade flow is seen in the vertebral arteries. The external carotid arteries are patent. Blood pressure in the right arm measured 169 mm/Hg. Blood pressure in the left arm measured 179 mm/Hg. There are mildly elevated velocities of the right internal carotid artery. The waveforms however appear otherwise unremarkable and on grayscale, no stenosis is visualized. No turbulence is visualized on color flow. There is no corresponding stenosis on the CT angiogram performed the same day. A hemodynamically significant stenosis is therefore not felt to be present. IMPRESSION: No evidence of unilaterally significant stenosis. Please see above discussion. Electronically signed by: Varun Sandoval M.D. 08/13/2017 5:37 PM Dictated Date/Time: 08/13/2017 5:31 PM
[2017-08-13] MEDS ORDERED: GADAVIST IV PRN (20:00)
--- NOTE | 2017-08-13 20:02 | Critical Care Consultation ---
Critical Care Consultation Date of Consultation: Aug 13, 2017. Attending Physician: Heraclio Elam M.D. Reason for Consultation: 77-year-old female with acute RIGHT-sided hemispheric CVA with LEFT upper extremity deficit receiving alteplase in the ER. Admitted for close hemodynamic /neurologic monitoring. History of Present Illness Patient is a 77-year-old female with a significant past medical history of hypertension, hyperlipidemia, and peripheral arterial disease who experienced LEFT upper extremity weakness early this morning at approximately 9:30 AM. She was subtotally brought to the emergency department and underwent evaluation for CVA symptoms. She received TPA for stroke like symptoms. She was found to have a moderate leukocytosis of greater than 20,000. She was not anemic. She was not hypercoagulable. No significant electrolyte derangement. Initial cardiac enzymes were negative. EKG was unremarkable. Patient did undergo CTA of the chest for concerns of possible dissection with complaints of upper back discomfort. Upon arrival to the ICU, the patient had just underwent MRI of the brain. Patient reports that she felt well upon awakening this morning, however reports that at approximately 9:30 AM, she developed an acute onset of LEFT-sided upper extremity weakness. Eventually, the patient presented to the ER for further evaluation. In addition to this episode, she was complaining of upper back pain. She describes this pain as significant and reports that it waxes and wanes approximately 2-3 times per week. Her pain was adequately controlled the emergency department with morphine and she reports minimal discomfort at this time. The patient complains of a mild headache at this point. She denies any blurry vision, double vision, slurred speech, neck pain/stiffness, nausea, vomiting, chest pain, palpitations, shortness of breath, pleuritic pain, or extremity pain. Patient is a daily smoker. She denies any significant alcohol or other substance use. Past Medical/Surgical History Medical Problems: (1) Dyslipidemia (2) Gastro-esophageal reflux (3) HTN (hypertension) (4) Hypertension (5) PAD (peripheral artery disease) (6) Peripheral vascular disease (7) SOB (shortness of breath) Surgical Problems: (1) H/O bilateral oophorectomy (2) H/O left breast biopsy (3) H/O oophorectomy (4) History of appendectomy (5) History of cataract surgery (6) History of colonoscopy (7) Hx of appendectomy (8) S/P femoral-popliteal bypass surgery Family History Asthma BROTHER FH: CAD (coronary artery disease) FATHER FH: CVA (cerebrovascular accident) FH: arthritis FATHER MOTHER BROTHER SISTER FH: cancer SISTER (esophageal) FH: diabetes mellitus BROTHER FH: esophageal cancer Stroke FATHER MOTHER Significant FHx of CVA Social History Smoking Status: Current Every Day Smoker Smokeless Tobacco Use: No Alcohol Use: none Drug Use: none Marital Status: Housing Status: lives with family Occupation Status: retired Allergies Coded Allergies: Adhesives (Verified Allergy, Unknown, ., 08/13/17) Benzoin (Verified Allergy, Unknown, ., 08/13/17) Hydrogen Peroxide (Verified Allergy, Unknown, ., 08/13/17) Ceftriaxone (Unverified Adverse Reaction, Unknown, burning at site of injection, 08/13/17) Home Medications Scheduled Amlodipine (Norvasc), 5 MG PO DAILY Aspirin (Aspirin Ec), 81 MG PO DAILY Folic Acid (Folvite), 1 MG PO DAILY Gabapentin (Neurontin), 300-600 MG PO TID Lisinopril (Zestril), 40 MG PO TID Metoprolol Succinate (Metoprolol Succinate ER), 25 MG PO QAM Multiple Vitamins W/ Minerals (Thera-M), 1 TAB PO DAILY Omeprazole (Prilosec), 20 MG PO DAILY Simvastatin (Zocor), 40 MG PO QPM Scheduled PRN Acetaminophen (Acetaminophen), 650 MG PO Q4H PRN for Mild Pain Albuterol Hfa (Ventolin Hfa), 2-4 PUFFS INH Q6H PRN for SOB/Wheezing Current Inpatient Medications Current Inpatient Medications Medications (Trade) Dose Ordered Sig/Jessica Route Start Time Stop Time Status Last Admin Dose Admin Ioversol (Optiray 320) 111 ml UD PRN IV 08/13/17 11:30 08/17/17 11:29 Atorvastatin Calcium (Lipitor Tab) 40 mg QAM PO 08/14/17 09:00 09/13/17 08:59 Miscellaneous Information (Pharmacist Discharge Med Rec Consult) 1 ea UD PRN N/A 08/13/17 15:00 09/12/17 14:59 Acetaminophen (Tylenol Tab) 650 mg Q4H PRN PO 08/13/17 15:00 09/12/17 14:59 Nitroglycerin (Nitrostat Tab) 0.4 mg UD PRN SL 08/13/17 15:00 09/12/17 14:59 Morphine Sulfate (MoRPHine SULFATE INJ) 2 mg Q6H PRN IV 08/13/17 15:00 08/27/17 14:59 Miscellaneous Information (Icu Protocol For Hyperglycemia) 1 ea PRN PRN N/A 08/13/17 15:00 08/15/17 14:59 Albuterol/ Ipratropium (Duoneb) 3 ml Q4H PRN INH 08/13/17 15:15 09/12/17 15:14 Albuterol (Ventolin Hfa Inhaler) 2 puffs Q6H PRN INH 08/13/17 15:15 09/12/17 15:14 Gabapentin (Neurontin Cap) 300 mg TID PO 08/13/17 21:00 09/12/17 20:59 Metoprolol Succinate (Toprol Xl Tab) 25 mg QAM PO 08/14/17 09:00 09/13/17 08:59 Pantoprazole Sodium (Protonix Tab) 40 mg DAILY PO 08/14/17 09:00 09/13/17 08:59 Ondansetron HCl (Zofran Inj) 4 mg Q6H PRN IV 08/13/17 15:30 09/12/17 15:29 Sodium Chloride 1,000 ml @ 50 mls/hr Q20H ONCE IV 08/13/17 15:30 08/14/17 11:29 Gadobutrol (Gadavist) 8 mmol UD PRN IV 08/13/17 20:00 08/17/17 19:59 UNV Review of Systems A complete 10-point Review of Systems was discussed with the patient, with pertinent positives and negatives listed in the History of Present Illness. All remaining Review of Systems questions can be considered negative unless otherwise specified. Physical Exam Date Time Temp Pulse Resp B/P (MAP) Pulse Ox O2 Delivery O2 Flow Rate FiO2 08/13/17 19:30 92 18 162/96 (118) Nasal Cannula 2.0 08/13/17 19:00 83 18 153/91 (111) 95 Nasal Cannula 2.0 08/13/17 18:30 94 16 153/94 (113) 98 1/10/18 18:00 80 16 165/78 (107) 94 Nasal Cannula 2.0 08/13/17 17:30 80 19 159/77 (104) 89 08/13/17 17:05 36.5 85 20 154/79 (104) 89 Room Air 08/13/17 16:30 37.0 81 18 164/73 99 2.0 08/13/17 16:00 82 18 156/76 99 Room Air 08/13/17 15:30 82 18 143/73 98 Room Air 08/13/17 15:00 81 18 153/69 97 Room Air 08/13/17 14:30 77 18 175/78 99 Nasal Cannula 3.0 08/13/17 14:15 81 18 177/76 96 Nasal Cannula 3.0 08/13/17 14:15 99 Nasal Cannula 3.0 08/13/17 14:01 168 08/13/17 14:01 72 08/13/17 14:00 84 16 148/85 98 Nasal Cannula 3.0 08/13/17 13:45 82 16 130/80 98 Nasal Cannula 3.0 08/13/17 13:30 85 14 159/80 96 Nasal Cannula 3.0 08/13/17 13:28 87 Room Air 08/13/17 13:15 87 15 168/92 95 Room Air 08/13/17 13:04 74 08/13/17 13:00 75 17 176/103 96 Room Air 08/13/17 12:45 77 17 167/79 94 Room Air 08/13/17 12:31 77 14 165/78 94 Room Air 08/13/17 12:22 84 30 166/82 94 Room Air 08/13/17 12:05 83 16 145/79 93 Room Air 08/13/17 12:00 80 22 159/109 92 Room Air 08/13/17 11:43 93 Room Air 08/13/17 11:35 86 18 148/100 93 Room Air 08/13/17 10:52 85 08/13/17 10:48 37.0 77 18 154/81 98 Room Air VITAL SIGNS - Vital signs and nursing notes were reviewed. GENERAL - 77-year-old female appearing her stated age who is in no acute distress. Communicates well with provider and answers questions appropriately. HEAD - Normocephalic, Atraumatic. No Weeks's Sign or Raccoon's Eyes. No depressed skull fractures palpable. EYES - PERRL with EOMI bilaterally. Sclera anicteric. Palpebral conjunctiva pink and moist with no injection noted. EARS - No deformities of external structures noted on gross examination bilaterally. No pain elicited with palpation of the tragus bilaterally. External auditory canals without discharge or otorrhea. Tympanic membranes pearly zamorano without retraction or bulging. NOSE - Midline and without cyanosis. No epistaxis or purulent drainage noted. Septum midline without deviation or septal hematoma noted. MOUTH/OROPHARYNX - Without perioral cyanosis. Buccal mucosa pink and moist and without leukoplakia. Tongue midline with equal elevation of palate bilaterally. NECK - Neck with FROM. Supple to palpation. No lymphadenopathy noted. No nuchal rigidity. LUNGS - Chest wall symmetric without accessory muscle use, intercostals retractions, or central cyanosis. Normal vesicular breath sounds CTA B/L. No wheezes, rales, or rhonchi appreciated. CARDIAC - RRR with S1/S2. No murmur, rubs, or gallops appreciated. ABDOMEN - Abdominal contour flat and without pulsations or visible masses. BS normoactive all four quadrants. No tenderness, palpable masses, hepatosplenomegaly, or ascites noted. EXTREMITIES - No pretibial edema present. +3/5 radial and dorsalis pedis pulses palpated throughout. +3/5 strength appreciated LEFT versus RIGHT upper extremities. +4/5 strength appreciated bilaterally of the lower extremities. NEUROLOGIC - Cranial nerves II through XII grossly intact. Sensory intact to light touch throughout. LEFT upper deficit as described above. Positive LEFT Sided Drift. PSYCH - A&Ox3 and cooperates fully with examiner. Pt is very pleasant and interacts well with examiner. Laboratory Results Last 24 Hours Test 08/13/17 11:14 08/13/17 11:51 08/13/17 13:05 08/13/17 15:43 Bedside Prothrombin Time INR 1.1 White Blood Count 20.39 K/uL Red Blood Count 4.43 M/uL Hemoglobin 13.9 g/dL Hematocrit 41.6 % Mean Corpuscular Volume 93.9 fL Mean Corpuscular Hemoglobin 31.4 pg Mean Corpuscular Hemoglobin Concent 33.4 g/dl Platelet Count 279 K/uL Mean Platelet Volume 11.4 fL Neutrophils (%) (Auto) 73.9 % Lymphocytes (%) (Auto) 6.3 % Monocytes (%) (Auto) 19.0 % Eosinophils (%) (Auto) 0.2 % Basophils (%) (Auto) 0.2 % Neutrophils # (Auto) 15.06 K/uL Lymphocytes # (Auto) 1.28 K/uL Monocytes # (Auto) 3.87 K/uL Eosinophils # (Auto) 0.05 K/uL Basophils # (Auto) 0.04 K/uL RDW Standard Deviation 49.8 fL RDW Coefficient of Variation 14.5 % Immature Granulocyte % (Auto) 0.4 % Immature Granulocyte # (Auto) 0.09 K/uL Hypersegmented Polys 1+ Prothrombin Time 10.7 SECONDS Prothromb Time International Ratio 1.0 Activated Partial Thromboplast Time 29.8 SECONDS Partial Thromboplastin Ratio 1.1 Sodium Level 137 mmol/L Potassium Level 4.4 mmol/L Chloride Level 103 mmol/L Carbon Dioxide Level 29 mmol/L Anion Gap 5.0 mmol/L Blood Urea Nitrogen 16 mg/dl Creatinine 0.85 mg/dl Est Creatinine Clear Calc Drug Dose 56.5 ml/min Estimated GFR () 77.7 Estimated GFR (Non- 67.0 BUN/Creatinine Ratio 18.9 Random Glucose 142 mg/dl Calcium Level 8.9 mg/dl Magnesium Level 2.1 mg/dl Total Creatine Kinase 32 U/L Creatine Kinase MB 0.5 ng/ml Creatine Kinase MB Ratio 1.6 Troponin I 0.031 ng/ml Procalcitonin 0.08 ng/ml Urine Color YELLOW Urine Appearance CLEAR Urine pH 8.0 Urine Specific [place] 1.038 Urine Protein NEG Urine Glucose (UA) NEG Urine Ketones NEG Urine Occult Blood 1+ Urine Nitrite NEG Urine Bilirubin NEG Urine Urobilinogen NEG Urine Leukocyte Esterase NEG Urine WBC (Auto) 0 /hpf Urine RBC (Auto) 10-30 /hpf Urine Hyaline Casts (Auto) 0 /lpf Urine Epithelial Cells (Auto) 20-30 /lpf Urine Bacteria (Auto) NEG Lactic Acid Level 2.4 mmol/L Test 08/13/17 18:06 08/13/17 18:30 08/13/17 20:00 Bedside Glucose 96 mg/dl Diagnostic Results Radiological imaging and reports were reviewed by myself. Radiologist's Interpretation as follows: HEAD WITHOUT CONTRAST (CT) CT DOSE: 638.56 mGycm HISTORY: Mental status change Stroke TECHNIQUE: Multiaxial CT images of the head were performed without the use of intravenous contrast. A dose lowering technique was utilized adhering to the principles of ALARA. Comparison: None. Findings: The paranasal sinuses and mastoid air cells are clear. The calvarium and skull base are intact. The ventricles and sulci are within normal limits. There is no mass, hematoma, midline shift, or acute infarct. Impression: No acute intracranial abnormality. Mild age-related atrophy and chronic small vessel change CHEST ONE VIEW PORTABLE HISTORY: Stroke symptoms. Back pain. COMPARISON: Chest CTA 08/13/2017. FINDINGS: Low lung volumes. No pleural effusions. No pneumothorax. The heart remains top normal in size. No new focal lung consolidations. Mild diffuse interstitial thickening. IMPRESSION: 1. Mild diffuse interstitial thickening which could be chronic. 2. The heart remains top normal in size. Study: CT angiography of the chest HISTORY: Pain. Mental status change. Findings. Generalized atherosclerotic change and ectasia thoracic aorta. No evidence for true aneurysm or dissection. Several small mediastinal and/or hilar nodes. Mild interstitial prominence throughout both hemithoraces suggesting nonspecific interstitial pneumonitis. No consolidative infiltrative changes. Minimal dependent basilar atelectatic change. Moderate degenerative disc change of the thoracic region. No evidence for compression deformity. IMPRESSION: No evidence for aneurysm or dissection. 2. Moderate atherosclerotic change thoracic aorta. 3. Slight generalized interstitial prominence throughout both hemithoraces raising the possibility of a mild diffuse interstitial pneumonitis. CT ANGIOGRAM OF THE BRAIN CLINICAL HISTORY: Left arm weakness. COMPARISON STUDY: CT of the brain dated 08/13/2017. TECHNIQUE: Following the IV administration of 94 cc of Optiray 320, CT angiogram of the brain was performed from the skull base to the vertex. Images are reviewed in the axial, sagittal, and coronal planes. 3-D MIPS images are created and assessed. IV contrast was administered without complication. A dose lowering technique was utilized adhering to the principles of ALARA. FINDINGS: Brain parenchyma: There are age-related involutional changes noting mild subcortical and periventricular microangiopathic disease. There is no hemorrhage, mass effect, or evidence of acute territorial ischemia by CT criteria. There is no evidence of enhancing mass lesion on the angiogram phase images. No extra-axial fluid collection is seen. Zamorano-white matter differentiation is preserved. Ventricles, sulci, and cisterns: Prominent secondary to involutional change. CT angiogram of the brain: There is atherosclerotic calcification of the cavernous carotid arteries. There is a right posterior communicating artery. The internal carotid arteries are widely patent, as are the anterior and middle cerebral arteries. The vertebrobasilar system and posterior cerebral arteries are widely patent. The vertebral arteries are codominant. There is no aneurysm, high-grade stenosis, or focal vessel cutoff identified throughout the intracranial circulation. Dural sinuses: Clear as visualized. Orbits: The bony orbits are intact. The orbital contents are normal as visualized noting bilateral ocular lens implants. Sinuses and mastoids: Trace mucosal thickening is seen in the left maxillary antrum. The remaining paranasal sinuses are clear. The mastoid air cells are well pneumatized. Calvarium: The skeletal structures are osteopenic. The calvarium appears intact. Soft tissues: A small lipoma is noted in the right frontal scalp on image #131. IMPRESSION: 1. There is no hemorrhage, mass effect, or evidence of acute territorial ischemia by CT criteria. 2. Unremarkable CT angiogram of the brain. NECK CTA HISTORY: Left upper extremity weakness. Assess for stroke. TECHNIQUE: Multiaxial CT images of the neck were performed following the intravenous administration of contrast to evaluate the major cervical vessels. Maximum intensity projection images were also obtained. All measurements were calculated based on NASCET criteria. A dose lowering technique was utilized adhering to the principles of ALARA. COMPARISON STUDY: Head CT 08/13/2017. Carotid Doppler 03/09/2013. FINDINGS: The aortic arch is normal in caliber. Focal mild narrowing of approximately 30% at the takeoff of the left subclavian artery. Otherwise, the remaining great vessels are patent. Mild calcified plaque seen within the bilateral carotid bifurcations without significant stenosis. Tortuous bilateral mid internal carotid arteries. Of note, the majority of the external carotid artery branches originate from the mid right internal carotid artery consistent with a high bifurcation. There is mild calcified plaque at this location. The bilateral common carotid arteries are widely patent. No significant stenosis within the bilateral vertebral arteries. IMPRESSION: No significant stenosis, occlusion, or dissection identified within the carotid or vertebral arteries. 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 ULTRASOUND OF THE CAROTID ARTERIES CLINICAL HISTORY: Stroke COMPARISON STUDY: 03/09/2013, MR angiography neck dated 08/13/2017 TECHNIQUE: Real-time, grayscale, and color Doppler sonography of the carotid arteries was performed. Imaging reviewed in the transverse and longitudinal planes. NASCET criteria was utilized for stenosis calcification. FINDINGS: There is a high bifurcation. The distal internal carotid arteries were difficult to delineate. Right external carotid artery was nonvisualized. There is mild atherosclerotic plaque present . The peak systolic velocity within the right internal carotid artery is 151 cm/sec. The systolic velocity ratio of right internal to common carotid artery is 2.4. The peak systolic velocity within the left internal carotid artery is 106 cm/sec. The systolic velocity ratio left internal to common carotid artery is 1.5. Antegrade flow is seen in the vertebral arteries. The external carotid arteries are patent. Blood pressure in the right arm measured 169 mm/Hg. Blood pressure in the left arm measured 179 mm/Hg. There are mildly elevated velocities of the right internal carotid artery. The waveforms however appear otherwise unremarkable and on grayscale, no stenosis is visualized. No turbulence is visualized on color flow. There is no corresponding stenosis on the CT angiogram performed the same day. A hemodynamically significant stenosis is therefore not felt to be present. IMPRESSION: No evidence of unilaterally significant stenosis. Please see above discussion. MRI OF THE BRAIN WITHOUT AND WITH IV CONTRAST CLINICAL HISTORY: Stroke. COMPARISON STUDY: Head CT and CTA of the head August 13, 2017 and MRI of the brain March 10, 2013. TECHNIQUE: Utilizing a 1.5 Megha magnet and dedicated coil, multiplanar, multiecho imaging of the brain was performed pre and postcontrast administration. IV administration of 8 mL of Gadavist contrast was uneventful. FINDINGS: There are are multiple small foci of restricted diffusion within the right MCA territory, involving the right frontal and parietal lobes. The largest focus is a 2.1 cm infarct within the right parietal lobe which involves the postcentral gyrus. There is mild corresponding signal abnormality. There is no significant mass effect with there is no evidence for hemorrhagic conversion. Ventricular system is unremarkable for age. Basilar cisterns are patent. There are no extra-axial collections. Flow-voids for the major intracranial vessels are present. Postcontrast images are compromised by motion artifact but no mass or pathologic enhancement is evident. Calvarial signal is unremarkable. Orbits are unremarkable. IMPRESSION: Multiple small foci of acute infarction within the right frontal and parietal lobes, measuring up to 2.1 cm. No significant mass effect. No evidence for hemorrhagic conversion. Assessment & Plan (1) CVA (cerebral vascular accident) (2) Back pain (3) LUE weakness (4) Peripheral vascular disease (5) Hypertension (6) Gastro-esophageal reflux (7) HTN (hypertension) (8) Dyslipidemia (9) PAD (peripheral artery disease) Reason Critically Ill: 77-year-old female with acute RIGHT-sided hemispheric CVA with LEFT upper extremity deficit receiving alteplase in the ER. Admitted for close hemodynamic/neurologic monitoring. Neuro - * CAM ICU: NEGATIVE * Acute RIGHT Sided Frontal/Hemispheric CVA w/ LEFT Upper Extremity Weakness: * Received TPA in ED per Tele[facility]Neurology ([facility] [place] * Monitoring per TPA protocols. * Serial Neuro checks. * MRI - multiple small infarcts to the frontal/hemispheric lobes. * Permissive HTN. * Defer antiplatelet/anticoagulation recommendations to Neurology for tomorrow (08/14), however with known h/o PAD/HDL, ? benefit from DAPT Tx? * Will add Day 2 TPA orders per protocol. * Chronic Back Pain: * Negative Dissection Series in ED. * Plain films tomorrow. * Morphine PRN. Cardiac - * h/o HTN, HLD, PAD: * Continue home Rx. * EKG - NSR 83 bpm QTc 448ms * Initial Troponin Negative - Repeat Troponin 10, will trend. No chest pain at this time. Echo already performed in ED. Heparin contraindicated at this point 2/2 recent TPA administration. * Will formally consult cardiology for further guidance. * ECHO: * * -- Conclusions -- * Left ventricular systolic function is normal. * Ejection Fraction = 65-70%. * There is mild concentric left ventricular hypertrophy. * The left atrium is moderately dilated. * There is severe mitral annular calcification. * There is mild mitral regurgitation. * Aortic valve sclerosis moderate, without significant aortic valvular stenosis. * Grade I diastolic dysfunction, (abnormal relaxation pattern). Respiratory - * Daily smoker: * PRN inhaler treatments * NC PRN * Smoking cessation. GI - * h/o GERD: * Protonix * Clear liquids at this point. * Formal swallow evaluation tomorrow. * Progress diet from this point. RENAL/LYTES - * Monitor Electrolytes - replace appropriately. * IVF: NSS@50mL/hr - * I&Os ENDO - * No h/o DM or Thyroid Dz * BSGs - ISS/gtt per protocol. HEME - * Stable H&H - monitor for any changes w/ recent TPA. ID - * Leukocytosis - appears to be chronically elevated. * ??Intermittent Steroid use 2/2 lung Dz. * No immediate concerns for acute infection. * Will trend fever curve. LINES/IV ACCESS - * PIVs intact. DVT PROPHYLAXIS - * No chemoprophylaxis at this point 2/2 TPA - will await Neuro recommendations for further Rx. * SCDs. I have personally spent 45 minutes of critical care time in the direct management of this patient. This is a life/limb threatening event. This includes time spent evaluating patient, direct bedside care, chart review, placing orders, interpretation of diagnostic studies, discussion with consultants, patient, and family members, as well as other required patient management activities. This time is exclusive of all separately billable procedures, and teaching time and separate from and in addition to any other critical care service time. Thank you for this consultation allow us to be part of this patient's care. Please refer to my attending physician's documentation for any further recommendations. Physician Supervision Note: I discussed the case with Hadley Zuniga PA-C and agree with the findings and plan as documented in the note. I performed an assessment of the patient. Any exceptions or clarifications are listed here: Patient s/p tPA for acute CVA, with significant improvement in the neurological deficits (left sided weakness). Also fount to have NSTEMI by labs. Denies chest pain, but has been complaining of back pain. She is awake, alert F/u repeat CT brain Start ASA and DVT prophylaxis BP control, keep under 180/100 Trend troponin. Echo report reviewed. Cardiology evaluation Physical therapy Documented By: Tejinder Koehler MD
--- NOTE | 2017-08-13 20:06 | DIAGNOSTIC IMAGING REPORT ---
MRI OF THE BRAIN WITHOUT AND WITH IV CONTRAST CLINICAL HISTORY: Stroke. COMPARISON STUDY: Head CT and CTA of the head August 13, 2017 and MRI of the brain March 10, 2013. TECHNIQUE: Utilizing a 1.5 Megha magnet and dedicated coil, multiplanar, multiecho imaging of the brain was performed pre and postcontrast administration. IV administration of 8 mL of Gadavist contrast was uneventful. FINDINGS: There are are multiple small foci of restricted diffusion within the right MCA territory, involving the right frontal and parietal lobes. The largest focus is a 2.1 cm infarct within the right parietal lobe which involves the postcentral gyrus. There is mild corresponding signal abnormality. There is no significant mass effect with there is no evidence for hemorrhagic conversion. Ventricular system is unremarkable for age. Basilar cisterns are patent. There are no extra-axial collections. Flow-voids for the major intracranial vessels are present. Postcontrast images are compromised by motion artifact but no mass or pathologic enhancement is evident. Calvarial signal is unremarkable. Orbits are unremarkable. IMPRESSION: Multiple small foci of acute infarction within the right frontal and parietal lobes, measuring up to 2.1 cm. No significant mass effect. No evidence for hemorrhagic conversion. Electronically signed by: Tank Godinez M.D. 08/13/2017 8:05 PM Dictated Date/Time: 08/13/2017 8:00 PM
[2017-08-13 20:31] LABS: HEMATOCRIT 41.2 % (37-47); MEAN CELL VOLUME 93.2 fL (80-100); MEAN CORPUSCULAR HEMOGLOBIN 31.7 pg (25-34); MEAN PLATELET VOLUME 11.3 fL (7.4-10.4); PLATELET COUNT 262 K/uL (130-400); RED CELL DISTRIBUTION WIDTH CV 14.3 % (11.5-14.5); RED CELL DISTRIBUTION WIDTH SD 48.5 fL (36.4-46.3); WHITE BLOOD COUNT 20.88 K/uL (4.8-10.8)
[2017-08-13] MEDS: GABAPENTIN 300 MG CAP PO SCH (21:00)
[2017-08-14] VITALS (27 sets, daily range): BP systolic 106–171; BP diastolic 46–77; PULSE 60–78; TEMP 36.4–37; O2SAT 95–99
[2017-08-14] MEDS: MoRPHine SULFATE 2 MG/ML CARP IV PRN ×4 (01:11→21:35)
[2017-08-14] MEDS: ACETAMINOPHEN 325 MG TAB PO PRN ×2 (05:59→20:29)
[2017-08-14 06:11] LABS: BASO % 0.3 %; BASO ABS # 0.05 K/uL (0-0.2); EOS % 1.7 %; HEMATOCRIT 43.3 % (37-47); HEMOGLOBIN 14.5 g/dL (12.0-16.0); IG# 0.05 K/uL (0.00-0.02); LYMPH % 17.4 %; LYMPH ABS # 3.09 K/uL (1.2-3.4); MEAN CORPUSCULAR HEMOGLOBIN 31.8 pg (25-34); MEAN CORPUSCULAR HGB CONC 33.5 g/dl (32-36); MEAN PLATELET VOLUME 12.9 fL (7.4-10.4); MONO % 13.1 %; MONO ABS # 2.33 K/uL (0.11-0.59); NEUT % 67.2 %; PLATELET COUNT 143 K/uL (130-400); RED CELL DISTRIBUTION WIDTH CV 15.1 % (11.5-14.5); RED CELL DISTRIBUTION WIDTH SD 50.3 fL (36.4-46.3); WHITE BLOOD COUNT 17.72 K/uL (4.8-10.8)
[2017-08-14] MEDS: METOPROLOL SUCC 25MG EXT REL TAB PO SCH (08:51)
[2017-08-14] MEDS: ATORVASTATIN 40 MG TAB PO SCH (09:12)
[2017-08-14] MEDS: PANTOprazole SOD 40 MG TAB PO SCH (09:12)
[2017-08-14] MEDS: GABAPENTIN 300 MG CAP PO SCH ×3 (09:12→20:28)
--- NOTE | 2017-08-14 11:01 | CARDIOLOGY CONSULTATION ---
DATE OF CONSULTATION: 08/14/2017 DATE OF CONSULTATION: 08/14/2017 REASON FOR CONSULTATION: Elevated troponin. REFERRING PHYSICIAN: Dr. Elam. HISTORY OF PRESENT ILLNESS: Ms. Elaine is a 77-year-old female with a history of peripheral vascular disease status post lower extremity bypass, hypertension, high grade aortic atheroma, severe mitral annular calcification with history of previous possible vegetation and transesophageal echo in 2012 as well as CKD. She presented to the Emergency Department with severe back pain involving the middle of her back as well as left hand weakness. The patient was evaluated by [facility] [place] and TPA was administered. There were some concerns regarding peaked T-waves as well as some nonspecific ST changes. Her MRI confirms the presence of small multiple foci of infarction of the right frontal and parietal lobes measuring up to 2.1 cm. The patient has improved post-TPA infusion. There are no signs of hemorrhagic conversion. There are no signs of significant arterial stenosis or dissection per imaging studies. Initial troponin was 0.31 with a repeat troponin performed last evening of 10.10. Currently, she is resting comfortably. She denies chest pain or shortness of breath. The left upper extremity weakness has improved and she has passed her swallow evaluation. Denies a prior history of coronary disease, congestive heart failure, history of peripheral vascular disease as noted below. Episode of paroxysmal atrial tachycardia noted on telemetry. No evidence of atrial fibrillation. REVIEW OF SYSTEMS: The pertinent positive noted above, a comprehensive 10-system review is otherwise negative. PAST MEDICAL HISTORY: 1. Peripheral vascular disease status post lower extremity fem-pop bypass surgery. 2. Dyslipidemia. 3. 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 4. Severe mitral annular calcification with questionable vegetation, which was excluded per transesophageal echo 2012. 5. Hypertension. 6. Chronic dyspnea on exertion. PAST SURGICAL HISTORY: 1. Transesophageal echo. 2. Bilateral oophorectomy. 3. Breast biopsy. 4. Appendectomy. 5. Cataract surgery. 6. Colonoscopy. 7. Fem-pop bypass. FAMILY HISTORY: Coronary disease in her father as well as history of cerebrovascular accident. No premature CAD or sudden cardiac . SOCIAL HISTORY: She is a current everyday smoker. She is and lives with her family. She is retired. ALLERGIES: ADHESIVES, BENZOIN, HYDROGEN PEROXIDE, CEFTRIAXONE. HOME MEDICATIONS: 1. Norvasc 5 mg daily. 2. Aspirin 81 mg daily. 3. Folvite 1 mg daily. 4. Neurontin 600 mg t.i.d. 5. Zestril 40 mg daily. 6. Toprol-XL 25 mg daily. 7. Omeprazole 20 mg daily. 8. Zocor 40 mg daily. 9. Tylenol 650 every 4 hours as need. 10. Albuterol 2-4 puffs every 6 hours as needed. ECG on admission is sinus rhythm with peaked T-waves, nonspecific ST abnormality. Initial troponin as noted above. LABORATORY DATA: Sodium 137, potassium 4.4, chloride is 103, CO2 is 29, BUN is 16, creatinine is 0.85. INR is 1.0. White blood cell count 17.72, hemoglobin is 14.5, platelet count 143. PHYSICAL EXAMINATION: VITAL SIGNS: Temperature is 36.4 degrees centigrade, pulse 60 beats per minute and regular, respiratory rate 20 breaths per minute, blood pressure 136/70, SAO2 is 98% on 2 liters. GENERAL: NAD, awake, alert and oriented x3. HEAD, EYES, EARS, NOSE, AND THROAT: Mucous membranes are moist. No scleral icterus. Conjunctivae pink. NECK: Supple. There is no JVD. No HJR, no carotid bruit. HEART: Regular with a normal S1 and S2. There is no murmur, rub, or gallop. LUNGS: Clear without rales, rhonchi or wheeze. ABDOMEN: Soft, nontender. No rebound or guarding. Normal bowel sounds. EXTREMITIES: Warm and dry without clubbing or cyanosis. There is trace bilateral pedal edema. NEUROLOGIC EXAMINATION: Demonstrates left upper extremity weakness. FINAL IMPRESSION: 1. Acute multiple small foci of infarction involving the right frontal and parietal lobes, status post tissue plasminogen activator. 2. Elevated troponin without ischemic ECG changes or evidence of regional wall motion abnormality per resting 2D transthoracic echo. 3. Peripheral vascular disease with history of prior fem-pop bypass followed by vascular surgery at [facility]. 4. Dyslipidemia. 5. Hypertension. 6. Active tobacco abuse. 7. Leukocytosis, no evidence of acute infection currently. PLAN AND RECOMMENDATIONS: Recommend starting aspirin when allowable per protocols post-TPA infusion. Continue to monitor telemetry for evidence of paroxysmal dysrhythmias, specifically undiagnosed atrial fibrillation which has not been documented to date. Review of previous imaging including transesophageal echo demonstrates a potential source for stroke including severe atheroma of the aortic arch. Currently, there is not an overt indication for anticoagulation from a cardiology perspective. Beta eliu will remain on hold to allow blood pressure to be more robust in the first 48 hours post cerebrovascular accident. We will repeat her ECG in a.m. Continue statin therapy at this time. Thank you for allowing me to take part in the care of your patient.
[2017-08-14 13:08] LABS: ISTAT CREATININE 0.8 mg/dl (0.6-1.3); ISTAT IONIZED CALCIUM 1.16 mmol/l (1.12-1.32); ISTAT POTASSIUM 4.5 mEq/L (3.3-5.0)
--- NOTE | 2017-08-14 14:01 | Progress Note ---
Internal Med Progress Note Date of Service: Aug 14, 2017. Provider Documentation: SUBJECTIVE: The patient was seen and examined Admitted with Stroke symptoms and some nonspecific back pain Received TPA Remains stable in ICU OBJECTIVE: Vital Signs-as noted below Exam: General-NO distress at rest Eyes-normal ENT-normal Neck-supple Lungs-Clear to ausucltate bilaterally Heart-Regular,no murmur appreciated Abdomen-Benign,no masses,bowel sound present Extremities-No edema Neuro-AAOx3 No dysarthria No facial asymmetry Generally weak Lab data as noted below. CT Head: No acute intracranial abnormality. Mild age-related atrophy and chronic small vessel change CXR: 1. Mild diffuse interstitial thickening which could be chronic. 2. The heart remains top normal in size. CT dissection: No evidence for aneurysm or dissection. 2. Moderate atherosclerotic change thoracic aorta. 3. Slight generalized interstitial prominence throughout both hemithoraces raising the possibility of a mild diffuse interstitial pneumonitis. CT angio Brain: 1. There is no hemorrhage, mass effect, or evidence of acute territorial ischemia by CT criteria. 2. Unremarkable CT angiogram of the brain. CTA neck: No significant stenosis, occlusion, or dissection identified within the carotid or vertebral arteries. 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 ECHO: Left ventricular systolic function is normal. * Ejection Fraction = 65-70%. * There is mild concentric left ventricular hypertrophy. * The left atrium is moderately dilated. * There is severe mitral annular calcification. * There is mild mitral regurgitation. * Aortic valve sclerosis moderate, without significant aortic valvular stenosis. * Grade I diastolic dysfunction, (abnormal relaxation pattern). ASSESSMENT & PLAN: Acute CVA: S/P tPA Admitted in ICU CT head: showed no acute pathology CTA Head, neck: No acute process CT dissection: Negative Speech and swallow eval Continue Lipitor Neuro checks, Neurology/Lapidarist consulted Allow permissive HTN in setting of acute CVA Repeat CT head in AM Avoid antiplatelets, anticoagulants for now Clinically better Back Pain: H/O chronic back pain CT dissection: Negative Will get X ray of spine Pain control PT/OT Abnormal ECG: ST -T wave changes likely secondary to CVA No regional wall motion abnormalities noted on ECHO Troponin:Second set is significantly high at 10 Cardiology consulted-appreciate input Repeat ECHO tomorrow Leukocytosis/Lactic acidosis: No obvious source of infection Normal Procalcitonin CXR:Mild diffuse interstitial thickening which could be chronic UA: no signs of UTI IV fluids Repeat Lactate levels No Abx for now PVD/ HLP: Hold Aspirin Continue Lipitor HTN: Hold HTN meds for permissive HTN GERD Continue PPI CKD III Cr at baseline monitor renal function Ongoing Tobacco use: [employer] to quit smoking DVT Px: SCDs Re: tPA Code Status: Full Code Vital Signs: Date Time Temp Pulse Resp B/P (MAP) Pulse Ox O2 Delivery O2 Flow Rate FiO2 08/14/17 13:00 62 14 147/76 (99) 97 Nasal Cannula 2.0 08/14/17 12:00 Nasal Cannula 2.0 08/14/17 12:00 36.6 64 15 138/69 (92) 98 Nasal Cannula 2.0 08/14/17 11:00 67 14 128/68 (88) 99 Nasal Cannula 2.0 08/14/17 10:00 60 20 136/70 (92) 98 Nasal Cannula 2.0 08/14/17 09:00 64 13 106/51 (69) 97 Nasal Cannula 2.0 08/14/17 08:00 36.4 67 15 107/46 (66) 96 Nasal Cannula 2.0 08/14/17 08:00 Nasal Cannula 08/14/17 08:00 Nasal Cannula 2.0 08/14/17 07:00 67 15 135/67 (89) 97 Nasal Cannula 2.0 08/14/17 06:30 70 21 146/64 (91) 96 Nasal Cannula 2.0 08/14/17 05:30 70 18 127/59 (81) 95 Nasal Cannula 2.0 08/14/17 04:30 69 13 121/52 (75) 95 Nasal Cannula 2.0 08/14/17 04:00 Nasal Cannula 2.0 08/14/17 04:00 36.8 08/14/17 03:30 69 17 140/76 (97) 98 Nasal Cannula 2.0 08/14/17 02:30 75 17 132/70 (90) 98 Nasal Cannula 2.0 08/14/17 01:30 69 17 138/66 (90) 98 Nasal Cannula 2.0 08/14/17 00:30 69 17 135/67 (89) 97 Nasal Cannula 2.0 08/14/17 00:00 Nasal Cannula 2.0 08/14/17 00:00 36.7 08/13/17 23:30 68 16 126/72 (90) 95 Nasal Cannula 2.0 08/13/17 22:30 82 16 135/64 (87) 94 Nasal Cannula 2.0 08/13/17 21:30 81 16 146/80 (102) 97 Nasal Cannula 2.0 08/13/17 20:30 74 14 131/64 (86) 97 Nasal Cannula 2.0 08/13/17 20:00 36.9 16 163/78 (106) 98 Nasal Cannula 2.0 08/13/17 20:00 Nasal Cannula 2.0 08/13/17 19:30 92 18 162/96 (118) Nasal Cannula 2.0 08/13/17 19:00 83 18 153/91 (111) 95 Nasal Cannula 2.0 08/13/17 18:30 94 16 153/94 (113) 98 08/13/17 18:00 80 16 165/78 (107) 94 Nasal Cannula 2.0 08/13/17 17:30 80 19 159/77 (104) 89 08/13/17 17:05 36.5 85 20 154/79 (104) 89 Room Air 08/13/17 16:30 37.0 81 18 164/73 99 2.0 08/13/17 16:00 82 18 156/76 99 Room Air 08/13/17 15:30 82 18 143/73 98 Room Air 08/13/17 15:00 81 18 153/69 97 Room Air 08/13/17 14:30 77 18 175/78 99 Nasal Cannula 3.0 08/13/17 14:15 81 18 177/76 96 Nasal Cannula 3.0 08/13/17 14:15 99 Nasal Cannula 3.0 08/13/17 14:01 168 08/13/17 14:01 72 08/13/17 14:00 84 16 148/85 98 Nasal Cannula 3.0 Lab Results: Results Past 24 Hours Test 08/13/17 15:43 08/13/17 18:06 08/13/17 20:18 08/13/17 23:35 Range/Units Lactic Acid Level 2.4 0.6 0.4-2.0 mmol/L Bedside Glucose 96 101 70-90 mg/dl White Blood Count 20.88 4.8-10.8 K/uL Red Blood Count 4.42 4.2-5.4 M/uL Hemoglobin 14.0 12.0-16.0 g/dL Hematocrit 41.2 37-47 % Mean Corpuscular Volume 93.2 80-100 fL Mean Corpuscular Hemoglobin 31.7 25-34 pg Mean Corpuscular Hemoglobin Concent 34.0 32-36 g/dl RDW Standard Deviation 48.5 36.4-46.3 fL RDW Coefficient of Variation 14.3 11.5-14.5 % Platelet Count 262 130-400 K/uL Mean Platelet Volume 11.3 7.4-10.4 fL Troponin I 10.100 0-0.045 ng/ml Test 08/14/17 05:44 08/14/17 09:20 08/14/17 13:31 Range/Units White Blood Count 17.72 4.8-10.8 K/uL Red Blood Count 4.56 4.2-5.4 M/uL Hemoglobin 14.5 12.0-16.0 g/dL Hematocrit 43.3 37-47 % Mean Corpuscular Volume 95.0 80-100 fL Mean Corpuscular Hemoglobin 31.8 25-34 pg Mean Corpuscular Hemoglobin Concent 33.5 32-36 g/dl Platelet Count 143 130-400 K/uL Mean Platelet Volume 12.9 7.4-10.4 fL Neutrophils (%) (Auto) 67.2 % Lymphocytes (%) (Auto) 17.4 % Monocytes (%) (Auto) 13.1 % Eosinophils (%) (Auto) 1.7 % Basophils (%) (Auto) 0.3 % Neutrophils # (Auto) 11.90 1.4-6.5 K/uL Lymphocytes # (Auto) 3.09 1.2-3.4 K/uL Monocytes # (Auto) 2.33 0.11-0.59 K/uL Eosinophils # (Auto) 0.30 0-0.5 K/uL Basophils # (Auto) 0.05 0-0.2 K/uL RDW Standard Deviation 50.3 36.4-46.3 fL RDW Coefficient of Variation 15.1 11.5-14.5 % Immature Granulocyte % (Auto) 0.3 % Immature Granulocyte # (Auto) 0.05 0.00-0.02 K/uL Bedside Glucose 97 70-90 mg/dl
[2017-08-14 14:03] LABS: INR 1.1 (0.9-1.1)
[2017-08-14 14:11] LABS: ALBUMIN 2.4 gm/dl (3.4-5.0); CALCIUM 8.5 mg/dl (8.5-10.1); CREATININE 0.7 mg/dl (0.60-1.20)
[2017-08-14 14:16] LABS: PHOSPHORUS 3.8 mg/dl (2.5-4.9); TOTAL PROTEIN 6.2 gm/dl (6.4-8.2)
--- NOTE | 2017-08-14 14:17 | Neurology Consultation ---
Neurology Consultation Date of Consultation: Aug 14, 2017. Attending Physician: Heraclio Elam M.D. Primary Care Physician: Lora Jackson M.D. (MEDICAL) Reason for Consultation: CVA s/p tpa History of Present Illness Source: patient Mona is a 77 yr female with PMH of PVD, HLP, HTN, GERD, CKD III. She has a history of back pain and LUE weakness which started today. 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 She sates that she was not able to move her fingers and "I felt funny". Her back pain was not radiating but dull and achy. She states they were trying to roll her in bed and it was very painful.She was brought to the ED by ambulance. She had a CT head which showed no acute findings. Stroke alert was call and they consulted [facility] . She then received tPA while in ED. Later she did show some improvement of LUE weakness post tPA. Denies CP, SOB, dizziness, cough, fever, chills, fall, head trauma, LOC, headache, change in vision, slurred speech, bowel/bladder incontinence, abdominal pain, diarrhea, dysuria. She does take aspirin 81 mg daily and she was told in the past that she had a TIA. Strong family history of stroke mother and father, no personal history of afib. Past Medical/Surgical History Medical Problems: (1) Back pain Status: Acute (2) CVA (cerebral vascular accident) Status: Acute (3) Dyslipidemia Status: Chronic (4) EKG, abnormal Status: Acute (5) Elevated white blood cell count Status: Acute (6) Flank pain Status: Acute (7) Gallstones Status: Acute (8) Gastro-esophageal reflux Status: Chronic (9) HTN (hypertension) Status: Chronic (10) Hypertension Status: Chronic (11) Leukocytosis Status: Acute (12) LUE weakness Status: Acute (13) PAD (peripheral artery disease) Status: Chronic (14) Peripheral vascular disease Status: Chronic (15) Pneumonia Status: Acute (16) TIA (transient ischemic attack) Status: Acute Social History Smoking Status: Current some day smoker Smokeless Tobacco Use: No Alcohol Use: none Drug Use: none Marital Status: Housing Status: lives with family Occupation Status: retired Allergies Coded Allergies: Adhesives (Verified Allergy, Unknown, ., 08/13/17) Benzoin (Verified Allergy, Unknown, ., 08/13/17) Hydrogen Peroxide (Verified Allergy, Unknown, ., 08/13/17) Ceftriaxone (Unverified Adverse Reaction, Unknown, burning at site of injection, 08/13/17) Current Inpatient Medications Current Inpatient Medications Medications (Trade) Dose Ordered Sig/Jessica Route Start Time Stop Time Status Last Admin Dose Admin Ioversol (Optiray 320) 111 ml UD PRN IV 08/13/17 11:30 08/17/17 11:29 Atorvastatin Calcium (Lipitor Tab) 40 mg QAM PO 08/14/17 09:00 09/13/17 08:59 08/14/17 09:12 40 MG Miscellaneous Information (Pharmacist Discharge Med Rec Consult) 1 ea UD PRN N/A 08/13/17 15:00 09/12/17 14:59 Acetaminophen (Tylenol Tab) 650 mg Q4H PRN PO 08/13/17 15:00 09/12/17 14:59 08/14/17 05:59 650 MG Nitroglycerin (Nitrostat Tab) 0.4 mg UD PRN SL 08/13/17 15:00 09/12/17 14:59 Morphine Sulfate (MoRPHine SULFATE INJ) 2 mg Q6H PRN IV 08/13/17 15:00 08/27/17 14:59 08/14/17 06:31 2 MG Miscellaneous Information (Icu Protocol For Hyperglycemia) 1 ea PRN PRN N/A 08/13/17 15:00 08/15/17 14:59 Albuterol/ Ipratropium (Duoneb) 3 ml Q4H PRN INH 08/13/17 15:15 09/12/17 15:14 Albuterol (Ventolin Hfa Inhaler) 2 puffs Q6H PRN INH 08/13/17 15:15 09/12/17 15:14 Gabapentin (Neurontin Cap) 300 mg TID PO 08/13/17 21:00 09/12/17 20:59 08/14/17 09:12 300 MG Metoprolol Succinate (Toprol Xl Tab) 25 mg QAM PO 08/14/17 09:00 09/13/17 08:59 Pantoprazole Sodium (Protonix Tab) 40 mg DAILY PO 08/14/17 09:00 09/13/17 08:59 08/14/17 09:12 40 MG Ondansetron HCl (Zofran Inj) 4 mg Q6H PRN IV 08/13/17 15:30 09/12/17 15:29 Gadobutrol (Gadavist) 8 mmol UD PRN IV 08/13/17 20:00 08/17/17 19:59 Sodium Chloride 1,000 ml @ 50 mls/hr Q20H ONCE IV 08/13/17 22:45 08/14/17 18:44 08/13/17 22:44 50 MLS/HR Physical Exam Vital Signs (Past 24 Hrs): Date Time Temp Pulse Resp B/P (MAP) Pulse Ox O2 Delivery O2 Flow Rate FiO2 08/14/17 13:00 62 14 147/76 (99) 97 Nasal Cannula 2.0 08/14/17 12:00 Nasal Cannula 2.0 08/14/17 12:00 36.6 64 15 138/69 (92) 98 Nasal Cannula 2.0 08/14/17 11:00 67 14 128/68 (88) 99 Nasal Cannula 2.0 08/14/17 10:00 60 20 136/70 (92) 98 Nasal Cannula 2.0 08/14/17 09:00 64 13 106/51 (69) 97 Nasal Cannula 2.0 08/14/17 08:00 36.4 67 15 107/46 (66) 96 Nasal Cannula 2.0 08/14/17 08:00 Nasal Cannula 08/14/17 08:00 Nasal Cannula 2.0 08/14/17 07:00 67 15 135/67 (89) 97 Nasal Cannula 2.0 08/14/17 06:30 70 21 146/64 (91) 96 Nasal Cannula 2.0 08/14/17 05:30 70 18 127/59 (81) 95 Nasal Cannula 2.0 08/14/17 04:30 69 13 121/52 (75) 95 Nasal Cannula 2.0 08/14/17 04:00 Nasal Cannula 2.0 08/14/17 04:00 36.8 08/14/17 03:30 69 17 140/76 (97) 98 Nasal Cannula 2.0 08/14/17 02:30 75 17 132/70 (90) 98 Nasal Cannula 2.0 08/14/17 01:30 69 17 138/66 (90) 98 Nasal Cannula 2.0 08/14/17 00:30 69 17 135/67 (89) 97 Nasal Cannula 2.0 08/14/17 00:00 Nasal Cannula 2.0 08/14/17 00:00 36.7 08/13/17 23:30 68 16 126/72 (90) 95 Nasal Cannula 2.0 08/13/17 22:30 82 16 135/64 (87) 94 Nasal Cannula 2.0 08/13/17 21:30 81 16 146/80 (102) 97 Nasal Cannula 2.0 08/13/17 20:30 74 14 131/64 (86) 97 Nasal Cannula 2.0 08/13/17 20:00 36.9 16 163/78 (106) 98 Nasal Cannula 2.0 08/13/17 20:00 Nasal Cannula 2.0 08/13/17 19:30 92 18 162/96 (118) Nasal Cannula 2.0 08/13/17 19:00 83 18 153/91 (111) 95 Nasal Cannula 2.0 08/13/17 18:30 94 16 153/94 (113) 98 08/13/17 18:00 80 16 165/78 (107) 94 Nasal Cannula 2.0 08/13/17 17:30 80 19 159/77 (104) 89 08/13/17 17:05 36.5 85 20 154/79 (104) 89 Room Air 08/13/17 16:30 37.0 81 18 164/73 99 2.0 08/13/17 16:00 82 18 156/76 99 Room Air 08/13/17 15:30 82 18 143/73 98 Room Air 08/13/17 15:00 81 18 153/69 97 Room Air 08/13/17 14:30 77 18 175/78 99 Nasal Cannula 3.0 08/13/17 14:15 81 18 177/76 96 Nasal Cannula 3.0 08/13/17 14:15 99 Nasal Cannula 3.0 08/13/17 14:01 168 08/13/17 14:01 72 08/13/17 14:00 84 16 148/85 98 Nasal Cannula 3.0 Physical Exam: Constitutional: appearance nourished, healthy, obese Ears, Nose, Mouth and Throat: mucous membranes moist, no injection and skin normal, eyes normal Cardiovascular: normal S-1 and S-2 and regular rate and rhythm Respiratory: clear to auscultation (CTA) and no rales, rhonchi or wheeze Musculoskeletal: no peripheral edema and good distal pulses Skin: no stigmata of neurocutaneous disease noted and normal and intact Eyes: extraocular muscles intact (EOMI) and pupils equal, round and reactive to light (PERRL) NEUROLOGIC EXAMINATION: Mental status: Alert and interactive Oriented 2016, august, [facility], why she is here Oriented to person Speech fluent with no evidence of aphasia, voice volume low Cranial Nerves smile eye brow raise symmetric tongue midline Sensory: intact to light touch and cool touch Coordination: finger to nose with no bipass dysmetric on left Gait/Stance: lying in bed. PT trying to get her OOB to chair but she whimpers in pain "my lower back and right hip hurts" Motor: Negative for pronator drift of out stretched arms with eyes closed. Strength: right biceps triceps hand early head start teacher deltoid 5/5 right flex restricted by pain, patellar flex ext 5/5 plantar flex ext 5/5. left biceps triceps deltoid intrinsics, 4/5 , hip flex 2/5, patellar flex 3/5, plantar flex ext 4/5 Laboratory Results Past 24 Hours: 08/14/17 05:44 Red Blood Count 4.56, Mean Corpuscular Volume 95.0, Mean Corpuscular Hemoglobin 31.8, Mean Corpuscular Hemoglobin Concent 33.5, Mean Platelet Volume 12.9, Neutrophils (%) (Auto) 67.2, Lymphocytes (%) (Auto) 17.4, Monocytes (%) (Auto) 13.1, Eosinophils (%) (Auto) 1.7, Basophils (%) (Auto) 0.3, Neutrophils # (Auto ) 11.90, Lymphocytes # (Auto) 3.09, Monocytes # (Auto) 2.33, Eosinophils # (Auto ) 0.30, Basophils # (Auto) 0.05 Test 08/13/17 20:18 08/14/17 05:44 08/14/17 09:20 08/14/17 13:31 Lactic Acid Level 0.6 mmol/L (0.4-2.0) White Blood Count 17.72 K/uL (4.8-10.8) Red Blood Count 4.56 M/uL (4.2-5.4) Hemoglobin 14.5 g/dL (12.0-16.0) Hematocrit 43.3 % (37-47) Mean Corpuscular Volume 95.0 fL (80-100) Mean Corpuscular Hemoglobin 31.8 pg (25-34) Mean Corpuscular Hemoglobin Concent 33.5 g/dl (32-36) Platelet Count 143 K/uL (130-400) Mean Platelet Volume 12.9 fL (7.4-10.4) Neutrophils (%) (Auto) 67.2 % Lymphocytes (%) (Auto) 17.4 % Monocytes (%) (Auto) 13.1 % Eosinophils (%) (Auto) 1.7 % Basophils (%) (Auto) 0.3 % Neutrophils # (Auto) 11.90 K/uL (1.4-6.5) Lymphocytes # (Auto) 3.09 K/uL (1.2-3.4) Monocytes # (Auto) 2.33 K/uL (0.11-0.59) Eosinophils # (Auto) 0.30 K/uL (0-0.5) Basophils # (Auto) 0.05 K/uL (0-0.2) RDW Standard Deviation 50.3 fL (36.4-46.3) RDW Coefficient of Variation 15.1 % (11.5-14.5) Immature Granulocyte % (Auto) 0.3 % Immature Granulocyte # (Auto) 0.05 K/uL (0.00-0.02) Bedside Glucose 97 mg/dl (70-90) Imaging CT head- No acute intracranial abnormality. Mild age-related atrophy and chronic small vessel change CT chest- No evidence for aneurysm or dissection. Moderate atherosclerotic change thoracic aorta. Slight generalized interstitial prominence throughout both hemithoraces raising the possibility of a mild diffuse interstitial pneumonitis. CTA neck- No significant stenosis, occlusion, or dissection identified within the carotid or vertebral arteries. 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 CTA brain-There is no hemorrhage, mass effect, or evidence of acute territorial ischemia by CT criteria. Unremarkable CT angiogram of the brain. MRI brain with and without- Multiple small foci of acute infarction within the right frontal and parietal lobes, measuring up to 2.1 cm. No significant mass effect. No evidence for hemorrhagic conversion. Impression 77 year old female s/p CVA and administration of tPa left sided weakness Plan 1. tPa protocol for starting plavix 75 mg and aspirin 81 mg 2. cardiology reviewed previous MOLLY and may have a potential for thrombus 3. permissive hypertension for 48 hours 4. monitor for afib- will defer to cardiology for work up -need for anticoagulation vs plavix and aspirin 5. PT/OT for discharge needs will likely need inpatient rehab 6. LDL <[address] head in 24 hours after tPa and with MS change and after aspirin and plavix is started 8. will need DL, DM, and blood pressure control and monitoring 9 further recommendations to follow I have seen and discussed above patient with Dr Cherelle Marques, neurology Pt seen and examined. No clear CN, speech, language, no RL confusion. LUE about #+ with drift, decreased LT L arm, but decreased T RLE, no extinction. Patchy R MCA infarct, suspicious for embolism. Follow-up CT head, no hemorrhage, rec dual antiplt tx. If no documented atrial dysrhymthia or embolic source rec outpt cardionet. Dr Amezcua will resume service tomorrow. SANDRITA Marques MD
--- NOTE | 2017-08-14 14:43 | DIAGNOSTIC IMAGING REPORT ---
THORACIC SPINE 3 VIEWS ROUTINE CLINICAL HISTORY: Back pain. Left upper extremity weakness. COMPARISON STUDY: Chest CT August 13, 2017. FINDINGS: Alignment of the thoracic spine is anatomic. Vertebral body heights are maintained. There is no fracture. There is mild multilevel degenerative disc disease with disc space narrowing and osteophytosis. There may be mild right infrahilar opacity. IMPRESSION: 1. No acute thoracic spine fracture or subluxation. 2. Mild multilevel degenerative disc disease of the thoracic spine. Electronically signed by: Tank Godinez M.D. 08/14/2017 2:42 PM Dictated Date/Time: 08/14/2017 2:41 PM
--- NOTE | 2017-08-14 14:50 | DIAGNOSTIC IMAGING REPORT ---
LUMBAR SPINE 3 VIEWS CLINICAL HISTORY: Chronic low back pain. FINDINGS: AP, lateral, and coned-down views of the lumbar spine are compared to study dated 11/30/2015. The skeletal structures are osteopenic. There is no radiographic evidence of fracture or malalignment. Vertebral body height and alignment are maintained throughout the lumbar spine. The transverse and spinous processes appear intact. Facet arthropathy is seen in the lower lumbar region. Moderate disc space narrowing is noted at L5-S1. Mild disc space narrowing is seen at the remaining lumbar levels. Tiny anterior osteophytes are seen throughout. The visualized bony pelvis appears intact. Sclerotic change is noted in the sacroiliac joints. There is a nonobstructed abdominal bowel gas pattern noting moderate colonic fecal retention. Advanced atherosclerotic calcification is seen in the abdominal aorta. IMPRESSION: 1. No acute bony abnormality is seen involving the lumbar spine. 2. Osteopenia and mild spondylotic change as above. Dictated: 08/14/2017 2:37 PM Transcribed: 08/14/2017 2:50 PM Jefe Electronically signed by: Jasper Lemus M.D. 08/14/2017 2:52 PM Dictated Date/Time: 08/14/2017 2:37 PM
--- NOTE | 2017-08-14 16:09 | DIAGNOSTIC IMAGING REPORT ---
HEAD WITHOUT CONTRAST (CT) CT DOSE: 537.48 mGy.cm HISTORY: Stroke S/P t-PA for Stroke. Evaluate hemorrhage TECHNIQUE: Multiaxial CT images of the head were performed without the use of intravenous contrast. A dose lowering technique was utilized adhering to the principles of ALARA. Comparison: MRI brain 08/13/2017. CT brain 08/13/2017 Findings: The paranasal sinuses and mastoid air cells are clear. The calvarium and skull base are intact. The ventricles and sulci are within normal limits. There is no mass, hematoma, midline shift, or acute infarct. MRI findings are not seen by CT criteria possibly due to their small size. This study is unchanged compared to the prior CT evaluation. Impression: Chronic and age-related change. No acute intracranial hemorrhage. No change from the prior CT exam The above report was generated using voice recognition software. It may contain grammatical, syntax or spelling errors. Electronically signed by: Pankaj Al M.D. 08/14/2017 4:08 PM Dictated Date/Time: 08/14/2017 4:04 PM
[2017-08-14] MEDS ORDERED: ASPIRIN 81 MG ECTAB PO ONE (16:18)
[2017-08-14] MEDS ORDERED: ENOXAPARIN 40 MG/0.4 ML SYR SQ ONE (16:18)
[2017-08-14] MEDS ORDERED: CLOPIDOGREL BISULFATE 75 MG TAB PO ONE (17:00)
--- NOTE | 2017-08-14 17:01 | Critical Care Progress Note ---
Critical Care Progress Note Date of Service Aug 14, 2017. ICU Day ICU Day Number: [address] Koehler Subjective Awake, alert, denies chest pain Able to eat Went for follow up CT brain Objective General: Elderly female, NAD Heent: NC/AT Lungs: CTA b/l CVS: S1S2 reg Abd: soft, no guarding Ext: no edema KEG RAISER: AAO x 3, mild left sided weakness, 4/5 LUE, 3-4/5 LLE. No downward drift observed Consults & Procedures Consultants: Cardiology: Dr Villanueva Neurology: Dr Marques Procedures: CVA NSTEMI Back pain HTN PAD Dyslipidemia Plan KEG RAISER: Repeat CT did not show any hemorrhage or evolution of CVA Start ASA Add Plavix Suspect embolic source of CVA No clear reason for the back pain, symptomatic treatment CVS: Resume ASA Troponin trending down Echo reviewed Cardiology consult noted Reintroduce BP meds gently Statin Has known significant atheromatous disease of the aortic arch Cardiac monitoring, r/o a-fib Pulmonary: No acute issues GI: Tolerating PO diet Renal: Creatinine 0.7, stable DVT prophylaxis: start Lovenox Critical care time spent with patient, reviewing the chart, discussing with consultants, greater than 25 minutes Data Medications: Current Inpatient Medications Medications (Trade) Dose Ordered Sig/Jessica Route Start Time Stop Time Status Last Admin Dose Admin Ioversol (Optiray 320) 111 ml UD PRN IV 08/13/17 11:30 08/17/17 11:29 Atorvastatin Calcium (Lipitor Tab) 40 mg QAM PO 08/14/17 09:00 09/13/17 08:59 08/14/17 09:12 40 MG Miscellaneous Information (Pharmacist Discharge Med Rec Consult) 1 ea UD PRN N/A 08/13/17 15:00 09/12/17 14:59 Acetaminophen (Tylenol Tab) 650 mg Q4H PRN PO 08/13/17 15:00 09/12/17 14:59 08/14/17 05:59 650 MG Nitroglycerin (Nitrostat Tab) 0.4 mg UD PRN SL 08/13/17 15:00 09/12/17 14:59 Morphine Sulfate (MoRPHine SULFATE INJ) 2 mg Q6H PRN IV 08/13/17 15:00 08/27/17 14:59 08/14/17 13:57 2 MG Miscellaneous Information (Icu Protocol For Hyperglycemia) 1 ea PRN PRN N/A 08/13/17 15:00 08/15/17 14:59 Albuterol/ Ipratropium (Duoneb) 3 ml Q4H PRN INH 08/13/17 15:15 09/12/17 15:14 Albuterol (Ventolin Hfa Inhaler) 2 puffs Q6H PRN INH 08/13/17 15:15 09/12/17 15:14 Gabapentin (Neurontin Cap) 300 mg TID PO 08/13/17 21:00 09/12/17 20:59 08/14/17 13:57 300 MG Metoprolol Succinate (Toprol Xl Tab) 25 mg QAM PO 08/14/17 09:00 09/13/17 08:59 Pantoprazole Sodium (Protonix Tab) 40 mg DAILY PO 08/14/17 09:00 09/13/17 08:59 08/14/17 09:12 40 MG Ondansetron HCl (Zofran Inj) 4 mg Q6H PRN IV 08/13/17 15:30 09/12/17 15:29 Gadobutrol (Gadavist) 8 mmol UD PRN IV 08/13/17 20:00 08/17/17 19:59 Sodium Chloride 1,000 ml @ 50 mls/hr Q20H ONCE IV 08/13/17 22:45 08/14/17 18:44 08/13/17 22:44 50 MLS/HR Aspirin (Ecotrin Tab) 81 mg QAM PO 08/15/17 09:00 09/14/17 08:59 UNV Aspirin (Ecotrin Tab) 81 mg 1618 ONCE PO 08/14/17 16:18 08/14/17 16:19 UNV Enoxaparin Sodium (Lovenox Inj) 40 mg QAM SQ 08/15/17 09:00 09/14/17 08:59 UNV Enoxaparin Sodium (Lovenox Inj) 40 mg 1618 ONCE SQ 08/14/17 16:18 08/14/17 16:19 UNV I & O: 24-Hour Column 08/15/17 08:00 Intake Total 952 ml Output Total 450 ml Balance 502 ml Vital Signs: Date Time Temp Pulse Resp B/P (MAP) Pulse Ox O2 Delivery O2 Flow Rate FiO2 08/14/17 14:05 65 99 08/14/17 14:00 67 14 168/77 (107) 98 Nasal Cannula 2.0 08/14/17 13:00 62 14 147/76 (99) 97 Nasal Cannula 2.0 08/14/17 12:00 Nasal Cannula 2.0 08/14/17 12:00 36.6 64 15 138/69 (92) 98 Nasal Cannula 2.0 08/14/17 11:00 67 14 128/68 (88) 99 Nasal Cannula 2.0 08/14/17 10:00 60 20 136/70 (92) 98 Nasal Cannula 2.0 08/14/17 09:00 64 13 106/51 (69) 97 Nasal Cannula 2.0 08/14/17 08:00 36.4 67 15 107/46 (66) 96 Nasal Cannula 2.0 08/14/17 08:00 Nasal Cannula 08/14/17 08:00 Nasal Cannula 2.0 08/14/17 07:00 67 15 135/67 (89) 97 Nasal Cannula 2.0 08/14/17 06:30 70 21 146/64 (91) 96 Nasal Cannula 2.0 08/14/17 05:30 70 18 127/59 (81) 95 Nasal Cannula 2.0 08/14/17 04:30 69 13 121/52 (75) 95 Nasal Cannula 2.0 08/14/17 04:00 Nasal Cannula 2.0 08/14/17 04:00 36.8 08/14/17 03:30 69 17 140/76 (97) 98 Nasal Cannula 2.0 08/14/17 02:30 75 17 132/70 (90) 98 Nasal Cannula 2.0 08/14/17 01:30 69 17 138/66 (90) 98 Nasal Cannula 2.0 08/14/17 00:30 69 17 135/67 (89) 97 Nasal Cannula 2.0 08/14/17 00:00 Nasal Cannula 2.0 08/14/17 00:00 36.7 08/13/17 23:30 68 16 126/72 (90) 95 Nasal Cannula 2.0 08/13/17 22:30 82 16 135/64 (87) 94 Nasal Cannula 2.0 08/13/17 21:30 81 16 146/80 (102) 97 Nasal Cannula 2.0 08/13/17 20:30 74 14 131/64 (86) 97 Nasal Cannula 2.0 08/13/17 20:00 36.9 16 163/78 (106) 98 Nasal Cannula 2.0 08/13/17 20:00 Nasal Cannula 2.0 08/13/17 19:30 92 18 162/96 (118) Nasal Cannula 2.0 08/13/17 19:00 83 18 153/91 (111) 95 Nasal Cannula 2.0 08/13/17 18:30 94 16 153/94 (113) 98 08/13/17 18:00 80 16 165/78 (107) 94 Nasal Cannula 2.0 08/13/17 17:30 80 19 159/77 (104) 89 08/13/17 17:05 36.5 85 20 154/79 (104) 89 Room Air Laboratory Results: Last 24 Hours Test 08/13/17 18:06 08/13/17 20:18 08/13/17 23:35 08/14/17 05:44 Bedside Glucose 96 mg/dl 101 mg/dl White Blood Count 20.88 K/uL 17.72 K/uL Red Blood Count 4.42 M/uL 4.56 M/uL Hemoglobin 14.0 g/dL 14.5 g/dL Hematocrit 41.2 % 43.3 % Mean Corpuscular Volume 93.2 fL 95.0 fL Mean Corpuscular Hemoglobin 31.7 pg 31.8 pg Mean Corpuscular Hemoglobin Concent 34.0 g/dl 33.5 g/dl RDW Standard Deviation 48.5 fL 50.3 fL RDW Coefficient of Variation 14.3 % 15.1 % Platelet Count 262 K/uL 143 K/uL Mean Platelet Volume 11.3 fL 12.9 fL Lactic Acid Level 0.6 mmol/L Troponin I 10.100 ng/ml Neutrophils (%) (Auto) 67.2 % Lymphocytes (%) (Auto) 17.4 % Monocytes (%) (Auto) 13.1 % Eosinophils (%) (Auto) 1.7 % Basophils (%) (Auto) 0.3 % Neutrophils # (Auto) 11.90 K/uL Lymphocytes # (Auto) 3.09 K/uL Monocytes # (Auto) 2.33 K/uL Eosinophils # (Auto) 0.30 K/uL Basophils # (Auto) 0.05 K/uL Immature Granulocyte % (Auto) 0.3 % Immature Granulocyte # (Auto) 0.05 K/uL Test 08/14/17 09:20 08/14/17 13:31 Bedside Glucose 97 mg/dl Prothrombin Time 11.7 SECONDS Prothromb Time International Ratio 1.1 Sodium Level 140 mmol/L Potassium Level 4.0 mmol/L Chloride Level 106 mmol/L Carbon Dioxide Level 29 mmol/L Anion Gap 5.0 mmol/L Blood Urea Nitrogen 17 mg/dl Creatinine 0.70 mg/dl Est Creatinine Clear Calc Drug Dose 65.5 ml/min Estimated GFR () 98.2 Estimated GFR (Non- 84.8 BUN/Creatinine Ratio 23.6 Random Glucose 119 mg/dl Calcium Level 8.5 mg/dl Phosphorus Level 3.8 mg/dl Magnesium Level 2.3 mg/dl Total Bilirubin 0.7 mg/dl Direct Bilirubin 0.1 mg/dl Aspartate Amino Transf (AST/SGOT) 34 U/L Alanine Aminotransferase (ALT/SGPT) 20 U/L Alkaline Phosphatase 79 U/L Troponin I 3.350 ng/ml Total Protein 6.2 gm/dl Albumin 2.4 gm/dl Triglycerides Level 129 mg/dl Cholesterol Level 138 mg/dl HDL Cholesterol 29 mg/dl LDL Cholesterol, Calculated 83 mg/dl VLDL Cholesterol, Calculated 26 mg/dl Cholesterol/HDL Ratio 4.8
[2017-08-15] VITALS (17 sets, daily range): BP systolic 111–163; BP diastolic 57–85; PULSE 60–79; TEMP 36.2–37.6; O2SAT 92–99
[2017-08-15] MEDS: MoRPHine SULFATE 2 MG/ML CARP IV PRN (04:33)
[2017-08-15 06:54] LABS: BASO % 0.4 %; BASO ABS # 0.06 K/uL (0-0.2); EOS % 2.7 %; EOS ABS # 0.41 K/uL (0-0.5); HEMATOCRIT 41.6 % (37-47); HEMOGLOBIN 14.4 g/dL (12.0-16.0); IG# 0.03 K/uL (0.00-0.02); LYMPH ABS # 2.69 K/uL (1.2-3.4); MEAN CELL VOLUME 93.1 fL (80-100); MEAN CORPUSCULAR HEMOGLOBIN 32.2 pg (25-34); MEAN CORPUSCULAR HGB CONC 34.6 g/dl (32-36); MEAN PLATELET VOLUME 11.4 fL (7.4-10.4); MONO % 14.6 %; MONO ABS # 2.17 K/uL (0.11-0.59); NEUT % 64.1 %; NEUT ABS # 9.55 K/uL (1.4-6.5); PLATELET COUNT 256 K/uL (130-400); RED CELL DISTRIBUTION WIDTH CV 14.1 % (11.5-14.5); RED CELL DISTRIBUTION WIDTH SD 47.7 fL (36.4-46.3); WHITE BLOOD COUNT 14.91 K/uL (4.8-10.8)
[2017-08-15 07:05] LABS: CALCIUM 8.7 mg/dl (8.5-10.1); CREATININE 0.74 mg/dl (0.60-1.20); PHOSPHORUS 3.3 mg/dl (2.5-4.9); POTASSIUM 3.7 mmol/L (3.5-5.1)
[2017-08-15] MEDS ORDERED: KETOROLAC TROMETHAMINE 15 MG/ML VIAL IM PRN (08:45)
[2017-08-15] MEDS ORDERED: OXYCODONE/ACETAMINOPHEN 5-325 TAB PO PRN (08:45)
[2017-08-15] MEDS: DOCUSATE SODIUM 100 MG CAP PO SCH ×2 (09:29→20:38)
[2017-08-15] MEDS: ATORVASTATIN 40 MG TAB PO SCH (09:29)
[2017-08-15] MEDS: GABAPENTIN 300 MG CAP PO SCH ×3 (09:29→20:38)
[2017-08-15] MEDS: CLOPIDOGREL BISULFATE 75 MG TAB PO SCH (09:29)
[2017-08-15] MEDS: ASPIRIN 81 MG ECTAB PO SCH (09:29)
[2017-08-15] MEDS: PANTOprazole SOD 40 MG TAB PO SCH (09:29)
[2017-08-15] MEDS: ENOXAPARIN 40 MG/0.4 ML SYR SQ SCH (09:30)
[2017-08-15] MEDS ORDERED: KETOROLAC TROMETHAMINE 15 MG/ML VIAL IV. PRN (09:30)
[2017-08-15] MEDS ORDERED: NURSING VERBAL MED ORDER ONE (09:30)
[2017-08-15] MEDS: METOPROLOL SUCC 25MG EXT REL TAB PO SCH (09:36)
--- NOTE | 2017-08-15 13:13 | Progress Note ---
Internal Med Progress Note Date of Service: Aug 15, 2017. Provider Documentation: SUBJECTIVE: The patient was seen and examined Admitted with Stroke symptoms and some nonspecific back pain Received TPA Remains stable in ICU Complains of some back and neck pain OBJECTIVE: Vital Signs-as noted below Exam: General-No distress at rest Eyes-normal ENT-normal Neck-supple Lungs-Clear to ausucltate bilaterally Heart-Regular,no murmur appreciated Abdomen-Benign,no masses,bowel sound present Extremities-No edema Neuro-AAOx3 No dysarthria No facial asymmetry Generally weak No focal neuro deficit Lab data as noted below. CT Head: No acute intracranial abnormality. Mild age-related atrophy and chronic small vessel change CXR: 1. Mild diffuse interstitial thickening which could be chronic. 2. The heart remains top normal in size. CT dissection: No evidence for aneurysm or dissection. 2. Moderate atherosclerotic change thoracic aorta. 3. Slight generalized interstitial prominence throughout both hemithoraces raising the possibility of a mild diffuse interstitial pneumonitis. CT angio Brain: 1. There is no hemorrhage, mass effect, or evidence of acute territorial ischemia by CT criteria. 2. Unremarkable CT angiogram of the brain. CTA neck: No significant stenosis, occlusion, or dissection identified within the carotid or vertebral arteries. 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 ECHO: Left ventricular systolic function is normal. * Ejection Fraction = 65-70%. * There is mild concentric left ventricular hypertrophy. * The left atrium is moderately dilated. * There is severe mitral annular calcification. * There is mild mitral regurgitation. * Aortic valve sclerosis moderate, without significant aortic valvular stenosis. * Grade I diastolic dysfunction, (abnormal relaxation pattern). MRI::IMPRESSION: Multiple small foci of acute infarction within the right frontal and parietal lobes, measuring up to 2.1 cm. No significant mass effect. No evidence for hemorrhagic conversion. Repeat CT of the Head-negative for any Hemorrhage ASSESSMENT & PLAN: Acute CVA: S/P tPA Admitted in ICU CT head: showed no acute pathology CTA Head, neck: No acute process CT dissection: Negative Speech and swallow eval Continue Lipitor Neuro checks, Neurology/Meat Carver consulted Allow permissive HTN in setting of acute CVA Repeat CT head in AM and MRI as above Has been started on Plavix and Aspirin Clinically much better Back Pain and Neck pain H/O chronic back pain CT dissection: Negative Will get X ray of spine-Has OA ,otherwise nothing significant Pain control PT/OT Abnormal ECG:with significant increase in Troponin ST -T wave changes likely secondary to CVA No regional wall motion abnormalities noted on ECHO Troponin:Second set is significantly high at 10 Cardiology consulted-appreciate input Troponin is trending down Leukocytosis/Lactic acidosis: No obvious source of infection Normal Procalcitonin CXR:Mild diffuse interstitial thickening which could be chronic UA: no signs of UTI IV fluids Repeat Lactate levels No Abx for now PVD/ HLP: Hold Aspirin-restarted Continue Lipitor HTN: Hold HTN meds for permissive HTN GERD Continue PPI CKD III Cr at baseline monitor renal function Ongoing 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 DVT Px: SCDs Re: tPA Code Status: Full Code Will transfer to Tele Vital Signs: Date Time Temp Pulse Resp B/P (MAP) Pulse Ox O2 Delivery O2 Flow Rate FiO2 08/15/17 12:00 96 Room Air 08/15/17 12:00 36.9 63 16 111/64 (80) 93 Room Air 08/15/17 10:35 67 93 08/15/17 10:00 67 22 119/69 (86) 93 Room Air 08/15/17 08:00 96 Nasal Cannula 2.0 08/15/17 08:00 Nasal Cannula 08/15/17 08:00 37.0 78 22 149/69 (95) 96 Nasal Cannula 2.0 08/15/17 06:01 69 15 163/85 (120) 99 08/15/17 05:01 69 12 161/78 (126) 97 08/15/17 04:00 97 Nasal Cannula 2.0 08/15/17 04:00 64 13 134/64 (94) 96 08/15/17 04:00 36.7 08/15/17 03:00 78 11 147/64 (115) 93 08/15/17 02:00 70 15 129/57 (80) 97 08/15/17 01:00 69 14 137/66 (94) 97 08/15/17 00:01 37.2 08/15/17 00:00 79 12 153/64 (97) 96 08/14/17 23:59 97 Nasal Cannula 2.0 08/14/17 23:00 74 15 137/60 (97) 97 08/14/17 22:00 76 13 146/72 (110) 97 08/14/17 21:00 72 12 151/73 (103) 97 08/14/17 20:00 37.0 08/14/17 20:00 74 17 152/73 (111) 95 08/14/17 20:00 98 Room Air 08/14/17 19:00 78 20 171/62 (92) 96 08/14/17 18:00 72 20 149/70 (96) 98 Room Air 08/14/17 17:00 71 18 151/69 (96) 98 Room Air 08/14/17 16:10 Room Air 08/14/17 16:00 36.7 71 12 149/69 (95) 98 Room Air 08/14/17 14:05 65 99 08/14/17 14:00 67 14 168/77 (107) 98 Nasal Cannula 2.0 Lab Results: Results Past 24 Hours Test 08/14/17 13:31 08/14/17 16:37 08/14/17 22:14 08/14/17 23:14 Range/Units Prothrombin Time 11.7 9.0-12.0 SECONDS Prothromb Time International Ratio 1.1 0.9-1.1 Sodium Level 140 136-145 mmol/L Potassium Level 4.0 3.5-5.1 mmol/L Chloride Level 106 98-107 mmol/L Carbon Dioxide Level 29 21-32 mmol/L Anion Gap 5.0 3-11 mmol/L Blood Urea Nitrogen 17 7-18 mg/dl Creatinine 0.70 0.60-1.20 mg/dl Est Creatinine Clear Calc Drug Dose 65.5 ml/min Estimated GFR () 98.2 Estimated GFR (Non- 84.8 BUN/Creatinine Ratio 23.6 10-20 Random Glucose 119 70-99 mg/dl Calcium Level 8.5 8.5-10.1 mg/dl Phosphorus Level 3.8 2.5-4.9 mg/dl Magnesium Level 2.3 1.8-2.4 mg/dl Total Bilirubin 0.7 0.2-1 mg/dl Direct Bilirubin 0.1 0-0.2 mg/dl Aspartate Amino Transf (AST/SGOT) 34 15-37 U/L Alanine Aminotransferase (ALT/SGPT) 20 12-78 U/L Alkaline Phosphatase 79 45-117 U/L Troponin I 3.350 2.660 0-0.045 ng/ml Total Protein 6.2 6.4-8.2 gm/dl Albumin 2.4 3.4-5.0 gm/dl Triglycerides Level 129 0-150 mg/dl Cholesterol Level 138 0-200 mg/dl HDL Cholesterol 29 mg/dl LDL Cholesterol, Calculated 83 mg/dl VLDL Cholesterol, Calculated 26 mg/dl Cholesterol/HDL Ratio 4.8 Bedside Glucose 125 99 70-90 mg/dl Test 08/15/17 06:03 08/15/17 06:16 Range/Units Bedside Glucose 87 70-90 mg/dl White Blood Count 14.91 4.8-10.8 K/uL Red Blood Count 4.47 4.2-5.4 M/uL Hemoglobin 14.4 12.0-16.0 g/dL Hematocrit 41.6 37-47 % Mean Corpuscular Volume 93.1 80-100 fL Mean Corpuscular Hemoglobin 32.2 25-34 pg Mean Corpuscular Hemoglobin Concent 34.6 32-36 g/dl Platelet Count 256 130-400 K/uL Mean Platelet Volume 11.4 7.4-10.4 fL Neutrophils (%) (Auto) 64.1 % Lymphocytes (%) (Auto) 18.0 % Monocytes (%) (Auto) 14.6 % Eosinophils (%) (Auto) 2.7 % Basophils (%) (Auto) 0.4 % Neutrophils # (Auto) 9.55 1.4-6.5 K/uL Lymphocytes # (Auto) 2.69 1.2-3.4 K/uL Monocytes # (Auto) 2.17 0.11-0.59 K/uL Eosinophils # (Auto) 0.41 0-0.5 K/uL Basophils # (Auto) 0.06 0-0.2 K/uL RDW Standard Deviation 47.7 36.4-46.3 fL RDW Coefficient of Variation 14.1 11.5-14.5 % Immature Granulocyte % (Auto) 0.2 % Immature Granulocyte # (Auto) 0.03 0.00-0.02 K/uL Platelet Estimate NORMAL Prothrombin Time 10.7 9.0-12.0 SECONDS Prothromb Time International Ratio 1.0 0.9-1.1 Sodium Level 139 136-145 mmol/L Potassium Level 3.7 3.5-5.1 mmol/L Chloride Level 106 98-107 mmol/L Carbon Dioxide Level 28 21-32 mmol/L Anion Gap 5.0 3-11 mmol/L Blood Urea Nitrogen 12 7-18 mg/dl Creatinine 0.74 0.60-1.20 mg/dl Est Creatinine Clear Calc Drug Dose 62.0 ml/min Estimated GFR () 91.9 Estimated GFR (Non- 79.3 BUN/Creatinine Ratio 16.6 10-20 Random Glucose 87 70-99 mg/dl Calcium Level 8.7 8.5-10.1 mg/dl Phosphorus Level 3.3 2.5-4.9 mg/dl Magnesium Level 2.2 1.8-2.4 mg/dl
--- NOTE | 2017-08-15 15:12 | PROGRESS NOTE ---
DATE: 08/15/2017 SUBJECTIVE: Steven is 77 years old, has been seen by Cherelle Knox and Cherelle Marques over the past 36 hours after having been admitted with the acute onset of left upper extremity weakness and numbness and was found to have a series of presumptively embolic strokes involving the right frontal and parietal lobes. Workup to date has shown nothing other than some atheromatous plaque in the aorta, which certainly could have been the source of these presumption of emboli. She has not been shown to be in atrial fibrillation and the actual carotid systems are free of significant atheromatous changes. She is currently being transferred from the ICU to the second floor where she will be continued to be monitored for atrial arrhythmias and is on aspirin and Plavix. A repeat CT scan after her TPA shows no significant infarctions but as the radiologist pointed out the embolic events were very small and may have been missed on CT. The importance is that there is no hemorrhage at this time. OBJECTIVE: Reveals the presence of a mild left upper extremity drift and clumsiness. There may be a slight left upper motor neuron facial asymmetry. The patient has a slightly dazed expression, but otherwise is conversant and oriented. There is no neglect or bilaterally presented visual or somatosensory stimulation and all that we see clinically is a motor weakness which is mild and improved. IMPRESSION AND PLAN: At this time, unless we do find evidence for paroxysmal atrial fibrillation, I would simply continue dual antiplatelet therapy for 3 months and have her followed up on an outpatient basis by neurology. The source of these clots indeed may be the aorta, but at this point I really am not in favor of placing her on novel anticoagulant or Coumadin as a treatment in my opinion for aortic plaque remains antiplatelet drugs. I will check with her tomorrow. GEMMA
[2017-08-16] VITALS (9 sets, daily range): BP systolic 114–144; BP diastolic 67–82; PULSE 58–70; TEMP 36.5–37.3; O2SAT 92–96
[2017-08-16 07:05] LABS: BASO % 0.4 %; BASO ABS # 0.06 K/uL (0-0.2); EOS % 2.8 %; EOS ABS # 0.41 K/uL (0-0.5); HEMATOCRIT 43.3 % (37-47); HEMOGLOBIN 14.6 g/dL (12.0-16.0); IG# 0.07 K/uL (0.00-0.02); LYMPH % 19.6 %; LYMPH ABS # 2.88 K/uL (1.2-3.4); MEAN CELL VOLUME 92.1 fL (80-100); MEAN CORPUSCULAR HEMOGLOBIN 31.1 pg (25-34); MEAN CORPUSCULAR HGB CONC 33.7 g/dl (32-36); MEAN PLATELET VOLUME 11.8 fL (7.4-10.4); MONO % 10.8 %; MONO ABS # 1.58 K/uL (0.11-0.59); NEUT % 65.9 %; NEUT ABS # 9.67 K/uL (1.4-6.5); PLATELET COUNT 289 K/uL (130-400); RED CELL DISTRIBUTION WIDTH CV 13.8 % (11.5-14.5); RED CELL DISTRIBUTION WIDTH SD 46.9 fL (36.4-46.3); WHITE BLOOD COUNT 14.67 K/uL (4.8-10.8)
[2017-08-16 07:32] LABS: CALCIUM 8.9 mg/dl (8.5-10.1); CREATININE 0.95 mg/dl (0.60-1.20); POTASSIUM 4.1 mmol/L (3.5-5.1)
[2017-08-16 07:33] LABS: PHOSPHORUS 3.2 mg/dl (2.5-4.9)
[2017-08-16] MEDS: ASPIRIN 81 MG ECTAB PO SCH (08:09)
[2017-08-16] MEDS: CLOPIDOGREL BISULFATE 75 MG TAB PO SCH (08:09)
[2017-08-16] MEDS: GABAPENTIN 300 MG CAP PO SCH ×3 (08:09→21:57)
[2017-08-16] MEDS: PANTOprazole SOD 40 MG TAB PO SCH (08:09)
[2017-08-16] MEDS: ATORVASTATIN 40 MG TAB PO SCH (08:09)
[2017-08-16] MEDS: DOCUSATE SODIUM 100 MG CAP PO SCH ×2 (08:09→21:57)
[2017-08-16] MEDS: METOPROLOL SUCC 25MG EXT REL TAB PO SCH (08:09)
[2017-08-16] MEDS: ENOXAPARIN 40 MG/0.4 ML SYR SQ SCH (08:21)
--- NOTE | 2017-08-16 10:52 | DIAGNOSTIC IMAGING REPORT ---
CHEST 2 VIEWS ROUTINE CLINICAL HISTORY: r/o Pneumonia dyspnea COMPARISON STUDY: 08/13/2017 FINDINGS: Scattered platelike atelectasis bilaterally. No focal infiltrate. Diaphragms are smooth. IMPRESSION: Minimal scattered platelike atelectasis. Otherwise negative study with no focal infiltrate The above report was generated using voice recognition software. It may contain grammatical, syntax or spelling errors. Electronically signed by: Pankaj Al M.D. 08/16/2017 10:51 AM Dictated Date/Time: 08/16/2017 10:51 AM
--- NOTE | 2017-08-16 12:58 | PROGRESS NOTE ---
DATE: 08/16/2017 DATE: 08/16/2017 SUBJECTIVE: Mona has been moved up to the floor, but there is still no documentation of atrial arrhythmias. I was in error yesterday in interpreting the echocardiogram. There was no echo imaging on the aortic arch, but there was aortic valve narrowing and mitral annular calcification, both of which might have been the source of some platelet fiber of emboli and could have caused the right hemispheric events. There is certainly very little on exam today other than some clumsiness of the left hand, a mild drift and perhaps some slight left facial asymmetry and a little articulatory disturbance to indicate the presence of the small strokes. I do not know if she has had an adequate physical therapy evaluation. If not, she probably needs one and they can assess whether or not it would be safe to get her home or to make recommendations regarding potential [facility] stay. She is not wild about the second idea and apparently was told she might be able to go home today and I have no objections, but I would send her home on dual antiplatelet therapy with aspirin and Plavix and have her follow up with neurology in about a month or so. She could actually be seen by Cherelle Knox PA-C and then either Dr. Marques or I can make an assessment and further recommendations. She may be someone who does need a CardioNet monitor. She does have atrial enlargement and may be someone who is going in and out of atrial fibrillation but we have not detected any thus far. It may require a several week outpatient monitoring however to document this and obviously then the anticoagulation program would change from antiplatelets to either a novel anticoagulant for Coumadin. GEMMA
--- NOTE | 2017-08-16 15:02 | Progress Note ---
Internal Med Progress Note Date of Service: Aug 16, 2017. Provider Documentation: SUBJECTIVE: The patient was seen and examined Admitted with Stroke symptoms and some nonspecific back pain Received TPA Remains stable Generally weak but no focality OBJECTIVE: Vital Signs-as noted below Exam: General-No distress at rest Eyes-normal ENT-normal Neck-supple Lungs-Clear to ausucltate bilaterally Heart-Regular,no murmur appreciated Abdomen-Benign,no masses,bowel sound present Extremities-No edema Neuro-AAOx3 No dysarthria No facial asymmetry Generally weak No focal neuro deficit CT Head: No acute intracranial abnormality. Mild age-related atrophy and chronic small vessel change CXR: 1. Mild diffuse interstitial thickening which could be chronic. 2. The heart remains top normal in size. CT dissection: No evidence for aneurysm or dissection. 2. Moderate atherosclerotic change thoracic aorta. 3. Slight generalized interstitial prominence throughout both hemithoraces raising the possibility of a mild diffuse interstitial pneumonitis. CT angio Brain: 1. There is no hemorrhage, mass effect, or evidence of acute territorial ischemia by CT criteria. 2. Unremarkable CT angiogram of the brain. CTA neck: No significant stenosis, occlusion, or dissection identified within the carotid or vertebral arteries. 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 ECHO: Left ventricular systolic function is normal. * Ejection Fraction = 65-70%. * There is mild concentric left ventricular hypertrophy. * The left atrium is moderately dilated. * There is severe mitral annular calcification. * There is mild mitral regurgitation. * Aortic valve sclerosis moderate, without significant aortic valvular stenosis. * Grade I diastolic dysfunction, (abnormal relaxation pattern). MRI::IMPRESSION: Multiple small foci of acute infarction within the right frontal and parietal lobes, measuring up to 2.1 cm. No significant mass effect. No evidence for hemorrhagic conversion. Repeat CT of the Head-negative for any Hemorrhage ASSESSMENT & PLAN: Acute CVA: S/P tPA Admitted in ICU CT head: showed no acute pathology CTA Head, neck: No acute process CT dissection: Negative Speech and swallow eval Continue Lipitor Neuro checks, Neurology/Set Up And Charger consulted Allow permissive HTN in setting of acute CVA Repeat CT head in AM and MRI as above Has been started on Plavix and Aspirin Clinically much better and neurologycally improved a lot Continue PT Back Pain and Neck pain H/O chronic back pain CT dissection: Negative Will get X ray of spine-Has OA ,otherwise nothing significant Pain control PT/OT-continued Denies any pain today Abnormal ECG:with significant increase in Troponin ST -T wave changes likely secondary to CVA No regional wall motion abnormalities noted on ECHO Troponin:Second set is significantly high at 10 Cardiology consulted-appreciate input Troponin is trending down No cardiac symptoms Leukocytosis/Lactic acidosis: No obvious source of infection Normal Procalcitonin CXR:Mild diffuse interstitial thickening which could be chronic UA: no signs of UTI IV fluids Repeat Lactate levels No Abx for now No Infective source PVD/ HLP: Hold Aspirin-restarted Continue Lipitor HTN: Hold HTN meds for permissive HTN GERD Continue PPI CKD III Cr at baseline monitor renal function Ongoing 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 DVT Px: SCDs Re: tPA Code Status: Full Code [facility] Continue PT/Ot Likely discharge on Friday Vital Signs: Date Time Temp Pulse Resp B/P (MAP) Pulse Ox O2 Delivery O2 Flow Rate FiO2 08/16/17 12:03 36.9 58 18 114/67 (83) 94 Room Air 08/16/17 12:00 Room Air 08/16/17 08:00 95 Room Air 08/16/17 07:29 37.1 64 19 126/75 (92) 95 Room Air 08/16/17 04:00 Room Air 08/16/17 02:57 36.8 64 20 130/73 (92) 92 Room Air 08/15/17 23:59 Room Air 08/15/17 23:03 37.6 63 22 124/62 (82) 93 Room Air 08/15/17 20:00 Room Air 08/15/17 19:44 37.3 67 20 125/68 (87) 92 Room Air 08/15/17 16:02 36.2 08/15/17 16:00 Room Air 08/15/17 15:38 37.6 60 16 132/82 (99) 96 Room Air Lab Results: Results Past 24 Hours Test 08/16/17 06:35 Range/Units White Blood Count 14.67 4.8-10.8 K/uL Red Blood Count 4.70 4.2-5.4 M/uL Hemoglobin 14.6 12.0-16.0 g/dL Hematocrit 43.3 37-47 % Mean Corpuscular Volume 92.1 80-100 fL Mean Corpuscular Hemoglobin 31.1 25-34 pg Mean Corpuscular Hemoglobin Concent 33.7 32-36 g/dl Platelet Count 289 130-400 K/uL Mean Platelet Volume 11.8 7.4-10.4 fL Neutrophils (%) (Auto) 65.9 % Lymphocytes (%) (Auto) 19.6 % Monocytes (%) (Auto) 10.8 % Eosinophils (%) (Auto) 2.8 % Basophils (%) (Auto) 0.4 % Neutrophils # (Auto) 9.67 1.4-6.5 K/uL Lymphocytes # (Auto) 2.88 1.2-3.4 K/uL Monocytes # (Auto) 1.58 0.11-0.59 K/uL Eosinophils # (Auto) 0.41 0-0.5 K/uL Basophils # (Auto) 0.06 0-0.2 K/uL RDW Standard Deviation 46.9 36.4-46.3 fL RDW Coefficient of Variation 13.8 11.5-14.5 % Immature Granulocyte % (Auto) 0.5 % Immature Granulocyte # (Auto) 0.07 0.00-0.02 K/uL Prothrombin Time 10.0 9.0-12.0 SECONDS Prothromb Time International Ratio 1.0 0.9-1.1 Sodium Level 139 136-145 mmol/L Potassium Level 4.1 3.5-5.1 mmol/L Chloride Level 106 98-107 mmol/L Carbon Dioxide Level 28 21-32 mmol/L Anion Gap 5.0 3-11 mmol/L Blood Urea Nitrogen 19 7-18 mg/dl Creatinine 0.95 0.60-1.20 mg/dl Est Creatinine Clear Calc Drug Dose 48.8 ml/min Estimated GFR () 67.9 Estimated GFR (Non- 58.6 BUN/Creatinine Ratio 19.6 10-20 Random Glucose 101 70-99 mg/dl Calcium Level 8.9 8.5-10.1 mg/dl Phosphorus Level 3.2 2.5-4.9 mg/dl Magnesium Level 2.4 1.8-2.4 mg/dl
[2017-08-17 03:45] VITALS: BP 142/76; PULSE 82
[2017-08-17 06:43] VITALS: BP 118/64; PULSE 67; TEMP 36.7; O2SAT 91
[2017-08-17 08:00] VITALS: O2SAT 91
[2017-08-17] MEDS: ATORVASTATIN 40 MG TAB PO SCH (08:33)
[2017-08-17] MEDS: DOCUSATE SODIUM 100 MG CAP PO SCH ×2 (08:33→20:03)
[2017-08-17] MEDS: METOPROLOL SUCC 25MG EXT REL TAB PO SCH (08:33)
[2017-08-17] MEDS: GABAPENTIN 300 MG CAP PO SCH ×3 (08:33→20:03)
[2017-08-17] MEDS: ASPIRIN 81 MG ECTAB PO SCH (08:33)
[2017-08-17] MEDS: CLOPIDOGREL BISULFATE 75 MG TAB PO SCH (08:33)
[2017-08-17] MEDS: ENOXAPARIN 40 MG/0.4 ML SYR SQ SCH (08:34)
[2017-08-17] MEDS: PANTOprazole SOD 40 MG TAB PO SCH (08:34)
[2017-08-17 08:45] VITALS: BP 128/78
--- NOTE | 2017-08-17 13:29 | PROGRESS NOTE ---
DATE: 08/17/2017 SUBJECTIVE: Mona was seen today with her family. She insisted she was going to go home today but after discussion and observation of her gait and general demenor,w both family members and I agree that she is not ready to be placed back in her home environment. I watched her walk today, she has a mild left upper extremity dysfunction, some slight facial asymmetry and left leg maybe slightly clumsy, but she is really requiring a walker for ambulation and her daughter is there for security, so this is very different than her status at home. Physical therapy has apparently recommended a brief stay in an inpatient rehabilitation facility and investigations run away with her insurance regarding which facility might be covered. At this point, she needs to stay a little longer and probably needs at least a week or perhaps 10 days in a rehabilitation facility to get back to her baseline and we are going to treat her simply with aspirin and Plavix and see her back in neurology in probably 3-4 weeks' time. At that point, we probably will order a Cardionet monitoring or a Zio patch, just to see if there is any paroxysmal atrial fibrillation as there has been no clear unequivocal source with an embolic shower in lower and left hemisphere other than perhaps some calcified mitral annulus and aortic valve stenosis, but she does have an enlarged left atrium and a risk for paroxysmal atrial fibrillation would appear to be reasonably high. If this were the case, obviously another form of anticoagulation would be favored over aspirin and Plavix. Will check back with her tomorrow, but at some point will probably sign off the case as we are not adding any further value at this point. GEMMA
--- NOTE | 2017-08-17 14:30 | Progress Note ---
Internal Med Progress Note Date of Service: Aug 17, 2017. Provider Documentation: SUBJECTIVE: The patient was seen and examined Admitted with Stroke symptoms and some nonspecific back pain Received TPA Remains stable Generally weak but no focality Getting a little dizzy at times OBJECTIVE: Vital Signs-as noted below Exam: General-No distress at rest Eyes-normal ENT-normal Neck-supple Lungs-Clear to ausucltate bilaterally Heart-Regular,no murmur appreciated Abdomen-Benign,no masses,bowel sound present Extremities-No edema Neuro-AAOx3 No dysarthria No facial asymmetry Generally weak No focal neuro deficit CT Head: No acute intracranial abnormality. Mild age-related atrophy and chronic small vessel change CXR: 1. Mild diffuse interstitial thickening which could be chronic. 2. The heart remains top normal in size. CT dissection: No evidence for aneurysm or dissection. 2. Moderate atherosclerotic change thoracic aorta. 3. Slight generalized interstitial prominence throughout both hemithoraces raising the possibility of a mild diffuse interstitial pneumonitis. CT angio Brain: 1. There is no hemorrhage, mass effect, or evidence of acute territorial ischemia by CT criteria. 2. Unremarkable CT angiogram of the brain. CTA neck: No significant stenosis, occlusion, or dissection identified within the carotid or vertebral arteries. 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 ECHO: Left ventricular systolic function is normal. * Ejection Fraction = 65-70%. * There is mild concentric left ventricular hypertrophy. * The left atrium is moderately dilated. * There is severe mitral annular calcification. * There is mild mitral regurgitation. * Aortic valve sclerosis moderate, without significant aortic valvular stenosis. * Grade I diastolic dysfunction, (abnormal relaxation pattern). MRI::IMPRESSION: Multiple small foci of acute infarction within the right frontal and parietal lobes, measuring up to 2.1 cm. No significant mass effect. No evidence for hemorrhagic conversion. Repeat CT of the Head-negative for any Hemorrhage ASSESSMENT & PLAN: Acute CVA: S/P tPA Admitted in ICU CT head: showed no acute pathology CTA Head, neck: No acute process CT dissection: Negative Speech and swallow eval Continue Lipitor Neuro checks, Neurology/Probation Counselor consulted Allow permissive HTN in setting of acute CVA Repeat CT head in AM and MRI as above Has been started on Plavix and Aspirin Clinically much better and neurologically improved a lot Continue PT May need Rehab Plavix and Aspirin for now ,OP Zio patch to document any AF If any AF ,will need to change Anticoagulation Back Pain and Neck pain H/O chronic back pain CT dissection: Negative Will get X ray of spine-Has OA ,otherwise nothing significant Pain control PT/OT-continued Denies any pain today Abnormal ECG:with significant increase in Troponin ST -T wave changes likely secondary to CVA No regional wall motion abnormalities noted on ECHO Troponin:Second set is significantly high at 10 Cardiology consulted-appreciate input Troponin is trending down No cardiac symptoms Leukocytosis/Lactic acidosis: No obvious source of infection Normal Procalcitonin CXR:Mild diffuse interstitial thickening which could be chronic UA: no signs of UTI IV fluids Repeat Lactate levels No Abx for now No Infective source PVD/ HLP: Hold Aspirin-restarted Continue Lipitor HTN: Hold HTN meds for permissive HTN GERD Continue PPI CKD III Cr at baseline monitor renal function Ongoing 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 DVT Px: SCDs Re: tPA Code Status: Full Code Will transfer to [place] Continue PT/Ot Likely discharge on Friday Vital Signs: Date Time Temp Pulse Resp B/P (MAP) Pulse Ox O2 Delivery O2 Flow Rate FiO2 08/17/17 08:00 91 Room Air 08/17/17 06:43 36.7 67 18 118/64 (82) 91 Room Air 08/17/17 03:45 82 142/76 (98) 08/16/17 23:45 Room Air 08/16/17 23:32 36.5 70 16 127/78 (94) 96 Room Air 08/16/17 18:35 36.5 66 17 129/72 (91) 96 Room Air 08/16/17 16:52 37.3 63 18 95 08/16/17 16:00 95 Room Air 08/16/17 15:39 37.3 63 18 144/82 (102) 95 Room Air Lab Results: Results Past 24 Hours Test 08/16/17 19:55 08/17/17 07:42 Range/Units Bedside Glucose 108 92 70-90 mg/dl
[2017-08-17 15:30] VITALS: BP 124/70; PULSE 55; TEMP 36.5; O2SAT 93
[2017-08-17] MEDS: ACETAMINOPHEN 325 MG TAB PO PRN (20:06)
--- NOTE | 2017-08-17 20:59 | Progress Note ---
Post ICU Progress Note Date & Time Aug 17, 2017 at 20:57 Vital Signs Vital Signs Past 12 Hours Date Time Temp Pulse Resp B/P (MAP) Pulse Ox O2 Delivery O2 Flow Rate FiO2 08/17/17 17:00 Room Air 08/17/17 15:30 36.5 55 17 124/70 (88) 93 Room Air Notes Mental Status: alert / awake Nausea / Vomiting: adequately controlled Pain: adequately controlled Airway Patency, RR, SpO2: stable & adequate BP & HR: stable & adequate Patient is a 77-year-old female initially admitted to the ICU after receiving TPA for an ischemic RIGHT sided infarct. She was left with a slight LEFT-sided deficit. Her stay was complicated by a presumed NSTEMI. Conservative measures have been instituted this point. The patient will follow-up cardiology and outpatient setting. She is left with a slight LEFT-sided deficit. Otherwise, the patient reports feeling much better. She is having much less back discomfort. The patient is optimistic that she will be discharged home with help from her daughter. She offers no complaints at this point. Consider outpatient follow up in 1 to 2 weeks with: Cardiology, Neurology Repeat imaging needed: Per admitting services. Follow up cultures: None Reviewed progress notes, labs, and inpatient medication list Continue current management Additional recommendations: None at this time. Thank you for allowing us to participate in the care of this patient. At this time, Critical Care Services will sign off on this patient. Please feel free to reconsult as needed. Consults & Procedures Consultants: Cardiology: Dr Villanueva Neurology: Dr Marques Procedures: CVA NSTEMI Back pain HTN PAD Dyslipidemia Plan FINANCIAL REPORTING ADVISOR: Repeat CT did not show any hemorrhage or evolution of CVA Start ASA Add Plavix Suspect embolic source of CVA No clear reason for the back pain, symptomatic treatment CVS: Resume ASA Troponin trending down Echo reviewed Cardiology consult noted Reintroduce BP meds gently Statin Has known significant atheromatous disease of the aortic arch Cardiac monitoring, r/o a-fib Pulmonary: No acute issues GI: Tolerating PO diet Renal: Creatinine 0.7, stable DVT prophylaxis: start Lovenox Critical care time spent with patient, reviewing the chart, discussing with consultants, greater than 25 minutes
[2017-08-17 23:01] VITALS: BP 107/60; PULSE 56; TEMP 36.7; O2SAT 96
[2017-08-18 07:20] VITALS: BP 127/70; PULSE 58; TEMP 36.6; O2SAT 96
[2017-08-18 07:30] VITALS: O2SAT 96
[2017-08-18] MEDS: PANTOprazole SOD 40 MG TAB PO SCH (07:42)
[2017-08-18] MEDS: METOPROLOL SUCC 25MG EXT REL TAB PO SCH (07:43)
[2017-08-18] MEDS: DOCUSATE SODIUM 100 MG CAP PO SCH ×2 (07:43→20:02)
[2017-08-18] MEDS: ATORVASTATIN 40 MG TAB PO SCH (07:43)
[2017-08-18] MEDS: ASPIRIN 81 MG ECTAB PO SCH (07:43)
[2017-08-18] MEDS: GABAPENTIN 300 MG CAP PO SCH ×3 (07:43→20:02)
[2017-08-18] MEDS: CLOPIDOGREL BISULFATE 75 MG TAB PO SCH (07:43)
[2017-08-18] MEDS: ENOXAPARIN 40 MG/0.4 ML SYR SQ SCH (07:43)
[2017-08-18 08:27] LABS: HEMATOCRIT 44.7 % (37-47); HEMOGLOBIN 15.2 g/dL (12.0-16.0); MEAN CELL VOLUME 93.5 fL (80-100); MEAN CORPUSCULAR HEMOGLOBIN 31.8 pg (25-34); MEAN PLATELET VOLUME 11.5 fL (7.4-10.4); PLATELET COUNT 274 K/uL (130-400); RED CELL DISTRIBUTION WIDTH CV 14.1 % (11.5-14.5); RED CELL DISTRIBUTION WIDTH SD 47.7 fL (36.4-46.3); WHITE BLOOD COUNT 10.86 K/uL (4.8-10.8)
[2017-08-18 08:56] LABS: CALCIUM 8.9 mg/dl (8.5-10.1); CREATININE 0.79 mg/dl (0.60-1.20); POTASSIUM 4.1 mmol/L (3.5-5.1)
[2017-08-18 08:57] LABS: PHOSPHORUS 3.1 mg/dl (2.5-4.9)
--- NOTE | 2017-08-18 13:58 | Progress Note ---
Internal Med Progress Note Date of Service: Aug 18, 2017. Provider Documentation: SUBJECTIVE: The patient was seen and examined Admitted with Stroke symptoms and some nonspecific back pain Received TPA Remains stable and getting PT Likely to need Rehab for a short term OBJECTIVE: Vital Signs-as noted below Exam: General-No distress at rest Eyes-normal ENT-normal Neck-supple Lungs-Clear to ausucltate bilaterally Heart-Regular,no murmur appreciated Abdomen-Benign,no masses,bowel sound present Extremities-No edema Neuro-AAOx3 No dysarthria No facial asymmetry Generally weak No focal neuro deficit CT Head: No acute intracranial abnormality. Mild age-related atrophy and chronic small vessel change CXR: 1. Mild diffuse interstitial thickening which could be chronic. 2. The heart remains top normal in size. CT dissection: No evidence for aneurysm or dissection. 2. Moderate atherosclerotic change thoracic aorta. 3. Slight generalized interstitial prominence throughout both hemithoraces raising the possibility of a mild diffuse interstitial pneumonitis. CT angio Brain: 1. There is no hemorrhage, mass effect, or evidence of acute territorial ischemia by CT criteria. 2. Unremarkable CT angiogram of the brain. CTA neck: No significant stenosis, occlusion, or dissection identified within the carotid or vertebral arteries. 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 ECHO: Left ventricular systolic function is normal. * Ejection Fraction = 65-70%. * There is mild concentric left ventricular hypertrophy. * The left atrium is moderately dilated. * There is severe mitral annular calcification. * There is mild mitral regurgitation. * Aortic valve sclerosis moderate, without significant aortic valvular stenosis. * Grade I diastolic dysfunction, (abnormal relaxation pattern). MRI::IMPRESSION: Multiple small foci of acute infarction within the right frontal and parietal lobes, measuring up to 2.1 cm. No significant mass effect. No evidence for hemorrhagic conversion. Repeat CT of the Head-negative for any Hemorrhage ASSESSMENT & PLAN: Acute CVA: S/P tPA Admitted in ICU CT head: showed no acute pathology CTA Head, neck: No acute process CT dissection: Negative Speech and swallow eval Continue Lipitor Neuro checks, Neurology/Pension Examiner consulted Allow permissive HTN in setting of acute CVA Repeat CT head in AM and MRI as above Has been started on Plavix and Aspirin Clinically much better and neurologically improved a lot Plavix and Aspirin for now ,OP Zio patch to document any AF If any AF ,will need to change Anticoagulation Continue PT/OT -will need rehab for a short term Patient is reluctant but after discussion agreed to it Back Pain and Neck pain H/O chronic back pain CT dissection: Negative Will get X ray of spine-Has OA ,otherwise nothing significant Pain control PT/OT-continued Denies any pain today Abnormal ECG:with significant increase in Troponin ST -T wave changes likely secondary to CVA No regional wall motion abnormalities noted on ECHO Troponin:Second set is significantly high at 10 Cardiology consulted-appreciate input Troponin is trending down No cardiac symptoms Leukocytosis/Lactic acidosis: No obvious source of infection Normal Procalcitonin CXR:Mild diffuse interstitial thickening which could be chronic UA: no signs of UTI IV fluids Repeat Lactate levels No Abx for now No Infective source PVD/ HLP: Hold Aspirin-restarted Continue Lipitor HTN: Hold HTN meds for permissive HTN GERD Continue PPI CKD III Cr at baseline monitor renal function Ongoing 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 DVT Px: SCDs Re: tPA Code Status: Full Code Will transfer to [place] Continue PT/Ot awaiting placement Vital Signs: Date Time Temp Pulse Resp B/P (MAP) Pulse Ox O2 Delivery O2 Flow Rate FiO2 08/18/17 07:30 96 Room Air 08/18/17 07:20 36.6 58 22 127/70 (89) 96 Room Air 08/18/17 00:00 Room Air 08/17/17 23:01 36.7 56 16 107/60 (76) 96 Room Air 08/17/17 17:00 Room Air 08/17/17 15:30 36.5 55 17 124/70 (88) 93 Room Air Lab Results: Results Past 24 Hours Test 08/17/17 19:50 08/18/17 08:06 Range/Units Bedside Glucose 104 70-90 mg/dl White Blood Count 10.86 4.8-10.8 K/uL Red Blood Count 4.78 4.2-5.4 M/uL Hemoglobin 15.2 12.0-16.0 g/dL Hematocrit 44.7 37-47 % Mean Corpuscular Volume 93.5 80-100 fL Mean Corpuscular Hemoglobin 31.8 25-34 pg Mean Corpuscular Hemoglobin Concent 34.0 32-36 g/dl RDW Standard Deviation 47.7 36.4-46.3 fL RDW Coefficient of Variation 14.1 11.5-14.5 % Platelet Count 274 130-400 K/uL Mean Platelet Volume 11.5 7.4-10.4 fL Sodium Level 143 136-145 mmol/L Potassium Level 4.1 3.5-5.1 mmol/L Chloride Level 108 98-107 mmol/L Carbon Dioxide Level 26 21-32 mmol/L Anion Gap 9.0 3-11 mmol/L Blood Urea Nitrogen 19 7-18 mg/dl Creatinine 0.79 0.60-1.20 mg/dl Est Creatinine Clear Calc Drug Dose 58.7 ml/min Estimated GFR () 84.9 Estimated GFR (Non- 73.2 BUN/Creatinine Ratio 24.3 10-20 Random Glucose 104 70-99 mg/dl Calcium Level 8.9 8.5-10.1 mg/dl Phosphorus Level 3.1 2.5-4.9 mg/dl Magnesium Level 2.3 1.8-2.4 mg/dl
[2017-08-18 14:51] VITALS: BP 111/55; PULSE 59; TEMP 36.8; O2SAT 97
[2017-08-18 16:00] VITALS: O2SAT 97
--- NOTE | 2017-08-18 18:05 | PROGRESS NOTE ---
DATE: 08/18/2017 SUBJECTIVE: Steven looks even better today. There is no real drift to the left upper extremity. There is no neglect. There may be a left upper motor neuron facial asymmetry and the left leg is functionally working well. I saw her yesterday, I refer the reader to that notation ____ walking with a walker was a little slow and deliberate, she clearly needs a little time, probably in a rehabilitation type facility. It looks as though she is going to be off to [facility], perhaps tomorrow for a week or two and then will be back in her home environment. For now, we do not have a clearcut source for the embolic event that involves her right hemisphere. She has recovered nicely from this. She is going to need aspirin and Plavix. We are going to see her on an outpatient basis in our office within about 3 weeks and schedule her then for the outpatient CardioNet and/or Zio patch to monitor to see if she does ____ in and out of atrial fibrillation. She certainly has some potential embolic sources in the calcified mitral annulus in aortic valve, but we would not treat these with anything other than antiplatelet therapy and the only change would be if we found evidence for paroxysmal atrial fibrillation, at which time either a novel anticoagulant for Coumadin would have to be considered. All of these decisions remain in the future. Neurology is going to sign off her case at this point.
[2017-08-18 23:37] VITALS: BP 108/61; PULSE 64; TEMP 36.6; O2SAT 97
[2017-08-19] VITALS: O2SAT 97
[2017-08-19 07:45] VITALS: BP 127/69; PULSE 60; TEMP 36.8; O2SAT 96
[2017-08-19] MEDS: METOPROLOL SUCC 25MG EXT REL TAB PO SCH (07:49)
[2017-08-19] MEDS: PANTOprazole SOD 40 MG TAB PO SCH (07:49)
[2017-08-19] MEDS: GABAPENTIN 300 MG CAP PO SCH (07:50)
[2017-08-19] MEDS: CLOPIDOGREL BISULFATE 75 MG TAB PO SCH (07:50)
[2017-08-19] MEDS: DOCUSATE SODIUM 100 MG CAP PO SCH (07:50)
[2017-08-19] MEDS: ATORVASTATIN 40 MG TAB PO SCH (07:51)
[2017-08-19] MEDS: ASPIRIN 81 MG ECTAB PO SCH (07:51)
[2017-08-19] MEDS: ENOXAPARIN 40 MG/0.4 ML SYR SQ SCH (07:52)
--- NOTE | 2017-08-19 12:05 | Progress Note ---
Internal Med Progress Note Date of Service: Aug 19, 2017. Provider Documentation: SUBJECTIVE: The patient was seen and examined Admitted with Stroke symptoms and some nonspecific back pain Received TPA Improving daily and getting PT OBJECTIVE: Vital Signs-as noted below Exam: General-No distress at rest Eyes-normal ENT-normal Neck-supple Lungs-Clear to ausucltate bilaterally Heart-Regular,no murmur appreciated Abdomen-Benign,no masses,bowel sound present Extremities-No edema Neuro-AAOx3 No dysarthria No facial asymmetry Generally weak No focal neuro deficit CT Head: No acute intracranial abnormality. Mild age-related atrophy and chronic small vessel change CXR: 1. Mild diffuse interstitial thickening which could be chronic. 2. The heart remains top normal in size. CT dissection: No evidence for aneurysm or dissection. 2. Moderate atherosclerotic change thoracic aorta. 3. Slight generalized interstitial prominence throughout both hemithoraces raising the possibility of a mild diffuse interstitial pneumonitis. CT angio Brain: 1. There is no hemorrhage, mass effect, or evidence of acute territorial ischemia by CT criteria. 2. Unremarkable CT angiogram of the brain. CTA neck: No significant stenosis, occlusion, or dissection identified within the carotid or vertebral arteries. 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 ECHO: Left ventricular systolic function is normal. * Ejection Fraction = 65-70%. * There is mild concentric left ventricular hypertrophy. * The left atrium is moderately dilated. * There is severe mitral annular calcification. * There is mild mitral regurgitation. * Aortic valve sclerosis moderate, without significant aortic valvular stenosis. * Grade I diastolic dysfunction, (abnormal relaxation pattern). MRI::IMPRESSION: Multiple small foci of acute infarction within the right frontal and parietal lobes, measuring up to 2.1 cm. No significant mass effect. No evidence for hemorrhagic conversion. Repeat CT of the Head-negative for any Hemorrhage ASSESSMENT & PLAN: Acute CVA: S/P tPA Admitted in ICU CT head: showed no acute pathology CTA Head, neck: No acute process CT dissection: Negative Speech and swallow eval-passed Continue Lipitor Allow permissive HTN in setting of acute CVA Repeat CT head in AM and MRI as above Has been started on Plavix and Aspirin Clinically much better and neurologically improved a lot Plavix and Aspirin for now ,OP Zio patch to document any AF If any AF ,will need to change Anticoagulation Continue PT/OT -will need rehab for a short term Patient is reluctant but after discussion agreed to it Much improved today and ready to be discharged Back Pain and Neck pain-stable H/O chronic back pain CT dissection: Negative Will get X ray of spine-Has OA ,otherwise nothing significant Pain control PT/OT-continued No more pain Abnormal ECG:with significant increase in Troponin ST -T wave changes likely secondary to CVA No regional wall motion abnormalities noted on ECHO Troponin:Second set is significantly high at 10 Cardiology consulted-appreciate input Troponin is trending down No cardiac symptoms Leukocytosis/Lactic acidosis: No obvious source of infection Normal Procalcitonin CXR:Mild diffuse interstitial thickening which could be chronic UA: no signs of UTI IV fluids Repeat Lactate levels No Abx for now Remains stable PVD/ HLP: Hold Aspirin-restarted Continue Lipitor HTN: Hold HTN meds for permissive HTN HTN controlled GERD Continue PPI CKD III Cr at baseline monitor renal function Ongoing 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
[2017-08-19] MEDS ORDERED: OXYC-57 PO (12:11)
[2017-08-19] MEDS ORDERED: LPT40 PO (12:11)
[2017-08-19] MEDS ORDERED: PLV75 PO (12:11)
--- NOTE | 2017-08-19 12:14 | Discharge Instructions ---
Discharge Instructions Date of Service Aug 19, 2017. Admission Reason for Admission: Lue Weakness Discharge Discharge Diagnosis / Problem: Stroke,S/P TPA Discharge Goals Goal(s): Prevent Disease Progression Activity Recommendations Activity Level: Assistance Required Therapies: Physical Therapy, Occupational Therapy . Additional Information Patient informed of condition: Yes Advance Directives: No DNR: No Level of Care: Skilled Communicable Disease: No Prognosis: Improving Rodriguez Catheter: Yes Instructions / Follow-Up Instructions / Follow-Up Please amke an appointment with your PCP in 1 week,Neurology with Dr Amezcua in 2 -3 weeks Current Hospital Diet Patient's current hospital diet: AHA Diet (Heart Healthy) Discharge Diet Recommended Diet: AHA Diet (Heart Healthy) Pending Studies Studies pending at discharge: no Laboratory Results Hemoglobin A1c Test 08/13/17 11:51 Range/Units Estimated Average Glucose 126 mg/dl Hemoglobin A1c 6.0 H 4.5-5.6 % Lipid Panel Test 08/14/17 13:31 Range/Units Triglycerides Level 129 0-150 mg/dl Cholesterol Level 138 0-200 mg/dl HDL Cholesterol 29 mg/dl Cholesterol/HDL Ratio 4.8 LDL Cholesterol, Calculated 83 mg/dl Medical Emergencies . Who to Call and When: Medical Emergencies: If at any time you feel your situation is an emergency, please call 911 immediately. . Non-Emergent Contact Non-Emergency issues call your: Primary Care Provider . Past History Medical & Surgical History: (1) CVA (cerebral vascular accident) (2) EKG, abnormal (3) Peripheral vascular disease (4) Hypertension (5) HTN (hypertension) (6) PAD (peripheral artery disease) (7) Hx of appendectomy (8) H/O oophorectomy (9) S/P femoral-popliteal bypass surgery (10) History of cataract surgery . "Provider Documentation" section prepared by Heraclio Elam. . Core Measure Problem Core Measures: None
--- NOTE | 2017-08-19 12:18 | Discharge Summary ---
Discharge Summary Date of Service Aug 19, 2017. Discharge Summary Admission Date: Aug 13, 2017 at 15:08 Discharge Date: Aug 19, 2017 Discharge Disposition: Rehab Principal Diagnosis: Stroke,S/P TPA Secondary Diagnoses/Problems: Please see H&P and Hospital Progress note Consultations: Neurology and Care Partner Medication Reconciliation New Medications: Atorvastatin (Lipitor) 40 Mg Tab 40 MG PO QAM for 30 Days, #30 TAB Clopidogrel Bisulfate (Clopidogrel) 75 Mg Tab 75 MG PO QAM for 30 Days, #30 TAB Oxycodone/Acetaminophen 5MG/325MG (Percocet 5MG/325MG) Tab 1 TAB PO Q4H PRN for Pain for 10 Days, #30 TAB PAIN Continued Medications: Acetaminophen (Acetaminophen) 325 Mg Tab 650 MG PO Q4H PRN for Mild Pain NEEDED FOR PAIN RATED 1-3 ON A SCALE OF "0-10". DO NOT EXCEED 3 GM APAP/24 HOURS. Albuterol Hfa (Ventolin Hfa) 200 Puffs/12613 Mcg Aers 2-4 PUFFS INH Q6H PRN for SOB/Wheezing, #1 INHALER Amlodipine (Norvasc) 10 Mg Tab 5 MG PO DAILY Aspirin (Aspirin Ec) 81 Mg Tab 81 MG PO DAILY Folic Acid (Folvite) 1 Mg Tab 1 MG PO DAILY, TAB Gabapentin (Neurontin) 300 Mg Cap 300-600 MG PO TID Metoprolol Succinate (Metoprolol Succinate ER) 25 Mg Tabcr 25 MG PO QAM for 30 Days, #30 TAB Multiple Vitamins W/ Minerals (Thera-M) 1 Tab Tab 1 TAB PO DAILY Omeprazole (Prilosec) 20 Mg Capcr 20 MG PO DAILY Simvastatin (Zocor) 40 Mg Tab 40 MG PO QPM, TAB TAKE THIS MEDICATION WITH EVENING MEAL Discontinued Medications: Lisinopril (Zestril) 20 Mg Tab 40 MG PO TID Admission Information HPI (per Admitting provider): Patient is a 77 yr female with PMH of PVD, HLP, HTN, GERD, CKD III and other problems presents with history of back pain and LUE weakness which started today. 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 She sates that she was not able to move her fingers and "I felt funny". Patient states back pain is non radiating, dull, constant which improved while in ED and has history of chronic back pain. She reports nausea but denies vomiting. Patient had CT head which showed no acute findings and ED physician discussed with [facility] neurology and patient received tPA while in ED. Patient later showed some improvement of LUE weakness post tPA. Denies any history of chest pain, SOB, dizziness, cough, fever, chills, fall, head trauma, LOC, headache, change in vision, double/blurry vision, vertigo, slurred speech, facial deformity, bowel/bladder incontinence, abdominal pain, diarrhea, dysuria. She is on Aspirin at home and admits to taking it today Past Medical/Surgical History Medical Problems: (1) Dyslipidemia Status: Chronic (2) Gastro-esophageal reflux Status: Chronic (3) HTN (hypertension) Status: Chronic (4) Hypertension Status: Chronic (5) PAD (peripheral artery disease) Status: Chronic (6) Peripheral vascular disease Status: Chronic Surgical Problems: (1) H/O bilateral oophorectomy Status: Resolved (2) H/O left breast biopsy Status: Resolved (3) H/O oophorectomy Status: Resolved (4) History of appendectomy Status: Resolved (5) History of cataract surgery Status: Resolved (6) History of colonoscopy Status: Resolved (7) Hx of appendectomy Status: Resolved (8) S/P femoral-popliteal bypass surgery Status: Resolved Family History Asthma BROTHER FH: CAD (coronary artery disease) FATHER FH: CVA (cerebrovascular accident) FH: arthritis FATHER MOTHER BROTHER SISTER FH: cancer SISTER (esophageal) FH: diabetes mellitus BROTHER FH: esophageal cancer Stroke FATHER MOTHER Reviewed Social History Smoking Status: Current Every Day Smoker Alcohol Use: none Drug Use: none Marital Status: Housing status: lives with family Occupational Status: retired Immunizations History of Influenza Vaccine: Yes Influenza Vaccine Date: Aug 09, 2012 History of Tetanus Vaccine?: Yes Tetanus Immunization Date: December 15, 2001 History of Pneumococcal: Yes Pneumococcal Date: Jan 07, 2013 History of Hepatitis B Vaccine: Unknown Hepatitis Immunization Date: December 15, 2001 Multi-Drug Resistant Organisms History of MDRO: No Allergies Coded Allergies: Adhesives (Verified Allergy, Unknown, ., 08/13/17) Benzoin (Verified Allergy, Unknown, ., 08/13/17) Hydrogen Peroxide (Verified Allergy, Unknown, ., 08/13/17) Ceftriaxone (Unverified Adverse Reaction, Unknown, burning at site of injection, 08/13/17) Home Medications Scheduled Amlodipine (Norvasc), 5 MG PO DAILY Aspirin (Aspirin Ec), 81 MG PO DAILY Folic Acid (Folvite), 1 MG PO DAILY Gabapentin (Neurontin), 300-600 MG PO TID Lisinopril (Zestril), 40 MG PO TID Metoprolol Succinate (Metoprolol Succinate ER), 25 MG PO QAM Multiple Vitamins W/ Minerals (Thera-M), 1 TAB PO DAILY Omeprazole (Prilosec), 20 MG PO DAILY Simvastatin (Zocor), 40 MG PO QPM Scheduled PRN Acetaminophen (Acetaminophen), 650 MG PO Q4H PRN for Mild Pain Albuterol Hfa (Ventolin Hfa), 2-4 PUFFS INH Q6H PRN for SOB/Wheezing Review of Systems See HPI for pertinent positives & negatives. A total of 10 systems reviewed and were otherwise negative. Physical Ex - H&P Physical Exam Vital Signs Date Time Temp Pulse Resp B/P (MAP) Pulse Ox O2 Delivery O2 Flow Rate FiO2 08/13/17 13:45 82 16 130/80 98 Nasal Cannula 3.0 08/13/17 13:30 85 14 159/80 96 Nasal Cannula 3.0 08/13/17 13:28 87 Room Air 08/13/17 13:15 87 15 168/92 95 Room Air 08/13/17 13:04 74 08/13/17 13:00 75 17 176/103 96 Room Air 08/13/17 12:45 77 17 167/79 94 Room Air 08/13/17 12:31 77 14 165/78 94 Room Air 08/13/17 12:22 84 30 166/82 94 Room Air 08/13/17 12:05 83 16 145/79 93 Room Air 08/13/17 12:00 80 22 159/109 92 Room Air 08/13/17 11:43 93 Room Air 08/13/17 11:35 86 18 148/100 93 Room Air 08/13/17 10:52 85 08/13/17 10:48 37.0 77 18 154/81 98 Room Air General Appearance: WD/WN, no apparent distress Head: normocephalic, atraumatic Eyes: normal inspection, PERRL, EOMI, sclerae normal ENT: normal ENT inspection, hearing grossly normal Neck: supple, trachea midline Respiratory/Chest: chest non-tender, lungs clear, no respiratory distress, no accessory muscle use, + decreased breath sounds Cardiovascular: regular rate, rhythm, no edema, no murmur Abdomen/GI: normal bowel sounds, non tender, soft Back: + pertinent finding (Mid thoracic tenderness of spine) Extremities/Musculoskelatal: normal inspection, no pedal edema Neurologic/Psych: project 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 II-XII 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 as tested, alert, normal mood/affect, oriented x 3, + pertinent finding (Left upper extrtemity weakness, sensation intact) Skin: normal color, warm/dry Diagnostics - H&P Diagnostics Laboratory Results Results Past 24 Hours Test 08/13/17 11:14 08/13/17 11:51 08/13/17 13:05 Range/Units Bedside Prothrombin Time INR 1.1 0.9-1.1 White Blood Count 20.39 4.8-10.8 K/uL Red Blood Count 4.43 4.2-5.4 M/uL Hemoglobin 13.9 12.0-16.0 g/dL Hematocrit 41.6 37-47 % Mean Corpuscular Volume 93.9 80-100 fL Mean Corpuscular Hemoglobin 31.4 25-34 pg Mean Corpuscular Hemoglobin Concent 33.4 32-36 g/dl Platelet Count 279 130-400 K/uL Mean Platelet Volume 11.4 7.4-10.4 fL Neutrophils (%) (Auto) 73.9 % Lymphocytes (%) (Auto) 6.3 % Monocytes (%) (Auto) 19.0 % Eosinophils (%) (Auto) 0.2 % Basophils (%) (Auto) 0.2 % Neutrophils # (Auto) 15.06 1.4-6.5 K/uL Lymphocytes # (Auto) 1.28 1.2-3.4 K/uL Monocytes # (Auto) 3.87 0.11-0.59 K/uL Eosinophils # (Auto) 0.05 0-0.5 K/uL Basophils # (Auto) 0.04 0-0.2 K/uL RDW Standard Deviation 49.8 36.4-46.3 fL RDW Coefficient of Variation 14.5 11.5-14.5 % Immature Granulocyte % (Auto) 0.4 % Immature Granulocyte # (Auto) 0.09 0.00-0.02 K/uL Hypersegmented Polys 1+ Prothrombin Time 10.7 9.0-12.0 SECONDS Prothromb Time International Ratio 1.0 0.9-1.1 Activated Partial Thromboplast Time 29.8 21.0-31.0 SECONDS Partial Thromboplastin Ratio 1.1 Sodium Level 137 136-145 mmol/L Potassium Level 4.4 3.5-5.1 mmol/L Chloride Level 103 98-107 mmol/L Carbon Dioxide Level 29 21-32 mmol/L Anion Gap 5.0 3-11 mmol/L Blood Urea Nitrogen 16 7-18 mg/dl Creatinine 0.85 0.60-1.20 mg/dl Est Creatinine Clear Calc Drug Dose 56.5 ml/min Estimated GFR () 77.7 Estimated GFR (Non- 67.0 BUN/Creatinine Ratio 18.9 10-20 Random Glucose 142 70-99 mg/dl Calcium Level 8.9 8.5-10.1 mg/dl Magnesium Level 2.1 1.8-2.4 mg/dl Total Creatine Kinase 32 26-192 U/L Creatine Kinase MB 0.5 0.5-3.6 ng/ml Creatine Kinase MB Ratio 1.6 0-3.0 Troponin I 0.031 0-0.045 ng/ml Urine Color YELLOW Urine Appearance CLEAR CLEAR Urine pH 8.0 4.5-7.5 Urine Specific [place] 1.038 1.000-1.030 Urine Protein NEG NEG Urine Glucose (UA) NEG NEG Urine Ketones NEG NEG Urine Occult Blood 1+ NEG Urine Nitrite NEG NEG Urine Bilirubin NEG NEG Urine Urobilinogen NEG NEG Urine Leukocyte Esterase NEG NEG Urine WBC (Auto) 0 0-5 /hpf Urine RBC (Auto) 10-30 0-4 /hpf Urine Hyaline Casts (Auto) 0 0-5 /lpf Urine Epithelial Cells (Auto) 20-30 0-5 /lpf Urine Bacteria (Auto) NEG NEG Diagnostic Radiology CT Head: No acute intracranial abnormality. Mild age-related atrophy and chronic small vessel change CXR: 1. Mild diffuse interstitial thickening which could be chronic. 2. The heart remains top normal in size. CT dissection: No evidence for aneurysm or dissection. 2. Moderate atherosclerotic change thoracic aorta. 3. Slight generalized interstitial prominence throughout both hemithoraces raising the possibility of a mild diffuse interstitial pneumonitis. CT angio Brain: 1. There is no hemorrhage, mass effect, or evidence of acute territorial ischemia by CT criteria. 2. Unremarkable CT angiogram of the brain. CTA neck: No significant stenosis, occlusion, or dissection identified within the carotid or vertebral arteries. 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 ECHO: Left ventricular systolic function is normal. * Ejection Fraction = 65-70%. * There is mild concentric left ventricular hypertrophy. * The left atrium is moderately dilated. * There is severe mitral annular calcification. * There is mild mitral regurgitation. * Aortic valve sclerosis moderate, without significant aortic valvular stenosis. * Grade I diastolic dysfunction, (abnormal relaxation pattern). EKG EKG: NSR, Peaked T waves in I, II, V3, V4, V5, Non specific ST changes in inferior lead Impression - H&P Impression Assessment and Plan Acute CVA: S/P tPA Admit in ICU CT head: showed no acute pathology CTA Head, neck: No acute process CT dissection: Negative Stroke work up including lipid panel, A1C, MRI Brain, ECHO Speech and swallow eval Hold aspirin as S/P tPA Continue Lipitor Neuro checks, Neurology/Care Partner consulted PT/OT Allow permissive HTN in setting of acute CVA Repeat CT head in AM Avoid antiplatelets, anticoagulants for now Back Pain: H/O chronic back pain CT dissection: Negative Will get X ray of spine Pain control PT/OT Consider CT if necessary Leukocytosis/Lactic acidosis: No obvious source of infection Normal Procalcitonin CXR:Mild diffuse interstitial thickening which could be chronic UA: no signs of UTI IV fluids Repeat Lactate levels No Abx for now Abnormal ECG: ST -T wave changes likely secondary to CVA No regional wall motion abnormalities noted on ECHO Troponin: negative Trend cardiac enzymes PVD/ HLP: Hold Aspirin Continue Lipitor HTN: Hold HTN meds for permissive HTN GERD Continue PPI CKD III Cr at baseline monitor renal function Ongoing Tobacco use: Manager Online to quit smoking DVT Px: SCDs Re: tPA Code Status: Full Code Disposition: Admit in ICU Physical Exam (per Admitting): General Appearance: WD/WN, no apparent distress Head: normocephalic, atraumatic Eyes: normal inspection, PERRL, EOMI, sclerae normal ENT: normal ENT inspection, hearing grossly normal Neck: supple, trachea midline Respiratory/Chest: chest non-tender, lungs clear, no respiratory distress, no accessory muscle use, + decreased breath sounds Cardiovascular: regular rate, rhythm, no edema, no murmur Abdomen/GI: normal bowel sounds, non tender, soft Back: + pertinent finding (Mid thoracic tenderness of spine) Extremities/Musculoskelatal: normal inspection, no pedal edema Neurologic/Psych: project buyer II-XII nml as tested, alert, normal mood/affect, oriented x 3, + pertinent finding (Left upper extrtemity weakness, sensation intact) Skin: normal color, warm/dry Hospital Course Acute CVA: S/P tPA Admitted in ICU CT head: showed no acute pathology CTA Head, neck: No acute process CT dissection: Negative Speech and swallow eval-passed Continue Lipitor Allow permissive HTN in setting of acute CVA Repeat CT head in AM and MRI as above Has been started on Plavix and Aspirin Clinically much better and neurologically improved a lot Plavix and Aspirin for now ,OP Zio patch to document any AF If any AF ,will need to change Anticoagulation Continue PT/OT -will need rehab for a short term Patient is reluctant but after discussion agreed to it Much improved today and ready to be discharged Back Pain and Neck pain-stable H/O chronic back pain CT dissection: Negative Will get X ray of spine-Has OA ,otherwise nothing significant Pain control PT/OT-continued No more pain Abnormal ECG:with significant increase in Troponin ST -T wave changes likely secondary to CVA No regional wall motion abnormalities noted on ECHO Troponin:Second set is significantly high at 10 Cardiology consulted-appreciate input Troponin is trending down No cardiac symptoms Leukocytosis/Lactic acidosis: No obvious source of infection Normal Procalcitonin CXR:Mild diffuse interstitial thickening which could be chronic UA: no signs of UTI IV fluids Repeat Lactate levels No Abx for now Remains stable PVD/ HLP: Hold Aspirin-restarted Continue Lipitor HTN: Hold HTN meds for permissive HTN HTN controlled GERD Continue PPI CKD III Cr at baseline monitor renal function Ongoing Tobacco use: Manager Online to quit smoking DVT Px: SCDs Re: tPA Code Status: Full Code Will transfer to [place] Continue PT/Ot Accepted to [facility] Total time spent on discharge = 35 minutes This includes examination of the patient, discharge planning, medication reconciliation, and communication with other providers. Discharge Instructions Date of Service Aug 19, 2017. Admission Reason for Admission: Lue Weakness Discharge Discharge Diagnosis / Problem: Stroke,S/P TPA Discharge Goals Goal(s): Prevent Disease Progression Activity Recommendations Activity Level: Assistance Required Therapies: Physical Therapy, Occupational Therapy . Additional Information Patient informed of condition: Yes Advance Directives: No DNR: No Level of Care: Skilled Communicable Disease: No Prognosis: Improving Rodriguez Catheter: Yes Instructions / Follow-Up Instructions / Follow-Up Please amke an appointment with your PCP in 1 week,Neurology with Dr Amezcua in 2 -3 weeks Current Hospital Diet Patient's current hospital diet: AHA Diet (Heart Healthy) Discharge Diet Recommended Diet: AHA Diet (Heart Healthy) Pending Studies Studies pending at discharge: no Laboratory Results Hemoglobin A1c Test 08/13/17 11:51 Range/Units Estimated Average Glucose 126 mg/dl Hemoglobin A1c 6.0 H 4.5-5.6 % Lipid Panel Test 08/14/17 13:31 Range/Units Triglycerides Level 129 0-150 mg/dl Cholesterol Level 138 0-200 mg/dl HDL Cholesterol 29 mg/dl Cholesterol/HDL Ratio 4.8 LDL Cholesterol, Calculated 83 mg/dl Medical Emergencies . Who to Call and When: Medical Emergencies: If at any time you feel your situation is an emergency, please call 911 immediately. . Non-Emergent Contact Non-Emergency issues call your: Primary Care Provider . Past History Medical & Surgical History: (1) CVA (cerebral vascular accident) (2) EKG, abnormal (3) Peripheral vascular disease (4) Hypertension (5) HTN (hypertension) (6) PAD (peripheral artery disease) (7) Hx of appendectomy (8) H/O oophorectomy (9) S/P femoral-popliteal bypass surgery (10) History of cataract surgery . "Provider Documentation" section prepared by Heraclio Elam. . Core Measure Problem Core Measures: None <Electronically signed by Heraclio Elam M.D.> Signed: 08/19/17 6916 Additional Copies To Lora Jackson M.D. (MEDICAL)
[2017-08-19 13:11] VITALS: BP 127/69; PULSE 60; TEMP 36.8; O2SAT 96
== END 2017-08-19 13:45 | DRG 62 ==
LOC: EDBD 10:39 → C.EDA 10:40 → C.MSICU 15:08 → ENRESERV 15:38 → C.2T 08-15 15:00 → ENRESERV 08-16 16:08 → C.MS2W 08-16 18:21
PROVIDERS: ADMIT Internal Medicine; ATTEND Internal Medicine
DX: I63.9 Cerebral infarction, unspecified (principal); G81.94 Hemiplegia, unspecified affecting left nondominant side; E87.2 Acidosis; R29.704 NIHSS score 4; E78.5 Hyperlipidemia, unspecified; K21.9 Gastro-esophageal reflux disease without esophagitis; I12.9 Hypertensive chronic kidney disease with stage 1 through stage 4 chronic kidney disease, or unspecified chronic kidney disease; I73.9 Peripheral vascular disease, unspecified; F17.200 Nicotine dependence, unspecified, uncomplicated; N18.3 Chronic kidney disease, stage 3 (moderate); Z79.82 Long term (current) use of aspirin; M54.9 Dorsalgia, unspecified; Z82.49 Family history of ischemic heart disease and other diseases of the circulatory system

== ENCOUNTER 2019-01-17 20:25 | Observation (INO) ==
--- OUTSIDE RECORDS SUMMARY | 2019-01-17 20:28 | External Medical Summary | Continuity of Care Document ---
:1940 Author Name Isabelle Preciado Address Unavailable Unavailable , Care Team Providers Name Role Phone Brian AGUAYO Unavailable [email or web address] PCP, UNKNOWN Unavailable Unavailable Problems Active medical history not documented Allergies and Adverse Reactions Allergy history not documented Medications Medications not documented Procedures Procedures not documented Immunizations Immunizations not documented Plan of Treatment Planned Observations Planned Goals not documented Results No Known Results Results not documented
[2019-01-17 20:52] LABS: Basophils # (auto) 0.08 K/uL (0-0.2); Basophils % (auto) 0.6 %; Eosinophils # (auto) 0.41 K/uL (0-0.5); Eosinophils % (auto) 2.9 %; Hematocrit (blood only) 44.5 % (37-47); Hemoglobin 15.3 g/dL (12.0-16.0); Immature Granulocytes # (auto) 0.05 K/uL (0.00-0.02); Immature Granulocytes % (auto) 0.4 %; Lymphocytes # (auto) 3.95 K/uL (1.2-3.4); Lymphocytes % (auto) 27.8 %; Mean Corpuscular Hgb Conc 34.4 g/dL (32-36); Mean Corpuscular Volume 94.3 fL (80-100); Mean Platelet Volume 12.2 fL (7.4-10.4); Monocytes # (auto) 1.71 K/uL (0.11-0.59); Neutrophils # (auto) 8.03 K/uL (1.4-6.5); Neutrophils % (auto) 56.3 %; Platelet Count 285 K/uL (130-400); RDW Coefficient of Variation 15.2 % (11.5-14.5); RDW Standard Deviation 52.6 fL (36.4-46.3); Red Blood Count 4.72 M/uL (4.2-5.4); White Blood Count 14.23 K/uL (4.8-10.8)
[2019-01-17 21:07] LABS: Alanine Aminotransferase 22 U/L (12-78); Albumin Level 3.6 gm/dl (3.4-5.0); Aspartate Aminotransferase 16 U/L (15-37); BUN Creatinine Ratio 19.5 (10-20); Blood Urea Nitrogen 19 mg/dl (7-18); Calcium 9.2 mg/dl (8.5-10.1); Carbon Dioxide 30 mmol/L (21-32); Chloride 106 mmol/L (98-107); Creatinine Clr Calc Pharmacy 50.5 ml/min; Est GFR (African American) 64.9; Glucose 94 mg/dl (70-99); Magnesium 2.2 mg/dl (1.8-2.4); Potassium 3.7 mmol/L (3.5-5.1); Sodium 144 mmol/L (136-145)
[2019-01-17 21:12] LABS: Alkaline Phosphatase 104 U/L (45-117); Bilirubin,Total 0.3 mg/dl (0.2-1); Globulin 3.5 gm/dl (2.5-4.0); NT Pro B Type Natriuretic Pept 448 pg/ml (0-1800); Total Protein 7.1 gm/dl (6.4-8.2); Troponin I < 0.015 ng/ml (0-0.045)
--- NOTE | 2019-01-17 21:26 | XRay Report ---
XR chest 1V portable CLINICAL HISTORY: Chest pain. COMPARISON STUDY: Chest CT and chest radiograph August 13, 2017. FINDINGS: Lung volumes are mildly diminished. There is no pneumothorax or pleural effusion. There may be mild left basilar atelectasis. There is no evidence for pulmonary edema or pneumonia. Cardiomedia stinal silhouette is stable. IMPRESSION: Low lung volumes. No acute cardiopulmonary findings. Electronically signed by: Takn Godinez M.D. 01/17/2019 9:25 PM
[2019-01-17] MEDS ORDERED: OPTIRAY 320 125ml IV PRN (22:56)
[2019-01-17] MEDS ORDERED: NITROGLYCERIN 2% OINTMENT 30GM TUBE EXT ONE (23:00)
--- NOTE | 2019-01-17 23:13 | CT Scan Report ---
CT ANGIOGRAPHY OF THE CHEST, PULMONARY EMBOLUS PROTOCOL CLINICAL HISTORY: Shortness of breath. Chest pain. Evaluate for pulmonary embolus. COMPARISON STUDY: Chest CT August 13, 2017. Chest radiograph performed earlier today. TECHNIQUE: Following IV administration of 81 mL of Optiray-320, helical axial images of the chest wer e obtained utilizing the pulmonary embolus protocol. Maximal intensity projections and sagittal and coronal reformats were viewed on an independent 3D workstation. IV contrast was administered without complication. Automated exposure control was utilized for the study. A dose lowering technique was utilized adhering to the principles of ALARA. CT DOSE: 312.48 mGy.cm FINDINGS: No pulmonary emboli are identified. There is no evidence for thoracic aortic dissection. T he heart is mildly enlarged. There is extensive mitral annular calcification. No enlarged thoracic ly mph nodes are present. No pneumothorax or pleural effusion is noted. Linear opacities reflect atelect asis. The central airways are patent. There are mild groundglass opacities with mosaic attenuation. B mira thorax is unremarkable. A 1.7 cm right adrenal nodule is unchanged. This reflects an adenoma. IMPRESSION: 1. No pulmonary emboli identified. 2. Groundglass opacities with mosaic attenuation within the lungs which may reflect air trapping. 3. Mild cardiomegaly. Electronically signed by: Tank Godinez M.D. 01/17/2019 11:11 PM
[2019-01-17] MEDS ORDERED: fentaNYL citrate 100 MCG/2 ML VIAL IV STA (23:26)
[2019-01-18] MEDS ORDERED: ALBUT/IPRATROP 3MG/0.5MG NEB 3 ML VIAL INH PRN (01:49)
[2019-01-18] MEDS ORDERED: ACETAMINOPHEN 325 MG TAB PO PRN ×2 (01:49)
[2019-01-18] MEDS ORDERED: ALBUTEROL HFA 8 GM INHALER INH PRN (01:49)
[2019-01-18] MEDS ORDERED: ONDANSETRON INJ 2 MG/ML 2 ML VIAL IV PRN (01:49)
[2019-01-18] MEDS ORDERED: NITROGLYCERIN SL 0.4 MG/TAB TAB SL PRN (01:49)
[2019-01-18 05:20] LABS: Basophils # (auto) 0.09 K/uL (0-0.2); Basophils % (auto) 0.6 %; Eosinophils % (auto) 3.5 %; Hematocrit (blood only) 41.6 % (37-47); Immature Granulocytes # (auto) 0.04 K/uL (0.00-0.02); Immature Granulocytes % (auto) 0.3 %; Lymphocytes # (auto) 4.33 K/uL (1.2-3.4); Lymphocytes % (auto) 30.1 %; Mean Corpuscular Hgb Conc 33.7 g/dL (32-36); Mean Corpuscular Volume 94.1 fL (80-100); Mean Platelet Volume 11.3 fL (7.4-10.4); Monocytes # (auto) 1.73 K/uL (0.11-0.59); Neutrophils # (auto) 7.68 K/uL (1.4-6.5); Neutrophils % (auto) 53.5 %; Platelet Count 238 K/uL (130-400); RDW Coefficient of Variation 15.2 % (11.5-14.5); RDW Standard Deviation 52.5 fL (36.4-46.3); Red Blood Count 4.42 M/uL (4.2-5.4); White Blood Count 14.37 K/uL (4.8-10.8)
[2019-01-18 05:48] LABS: BUN Creatinine Ratio 22.3 (10-20); Calcium 8.6 mg/dl (8.5-10.1); Creatinine Clr Calc Pharmacy 64.1 ml/min; Est GFR (African American) 89.7; Est GFR (Non-African American) 77.4; Magnesium 2.3 mg/dl (1.8-2.4); Potassium 3.7 mmol/L (3.5-5.1)
--- NOTE | 2019-01-18 07:34 | History and Physical Report ---
DATE OF ADMISSION: 01/18/2019 CHIEF COMPLAINT: Chest pain. HISTORY OF PRESENT ILLNESS: This is a 78-year-old female with past medical history of peripheral vascular disease, left ventricular hypertrophy, CVA, history of dysphagia resolved now, interstitial lung disease, chronic rhinitis, history of calculus gallbladder, hearing loss, presents with chest pain. The patient says that after dinner, she noticed chest pain all over the chest, sharp pains, moderate to severe in nature. Also, she has some pain in the left cheek and she called the EMS. EMS gave aspirin which relieved the pain. In the ER again she had chest pain, she was placed on nitro paste and also a dose of fentanyl given. Currently, pain is almost gone. During the episode, she felt short of breath and some mild nausea, but denies any sweating, no dizziness, no cough, no fever, no chills. Currently, no sore throat, no difficulty swallowing. No abdominal pain. Normal bowel and bladder movements. She has chronic wound in the right calf region since her right femoral bypass surgery. This is stable. Currently hemodynamically stable. ALLERGIES: ADHESIVES, BENZOIN, HYDROGEN PEROXIDE, CEFTRIAXONE. PAST MEDICAL HISTORY: As mentioned above. PAST SURGICAL HISTORY: Colonoscopy, right profunda femoris artery endarterectomy and patch angioplasty, excision of the infected right femoral above and below knee popliteal artery, left breast biopsy, right breast biopsy, debridement of muscle, skin and subcutaneous tissue and sartorius muscle flap, negative pressure wound therapy, right femoral popliteal bypass using a [place] graft, right femoral popliteal thromboembolectomy, revision of proximal and distal anastomosis, bilateral oophorectomy, cataract surgery. MEDICATIONS: The patient is on Toprol-XL 25 mg p.o. daily, atorvastatin 80 mg p.o. at bedtime, lisinopril 5 mg p.o. daily, omeprazole 20 mg p.o. daily, amlodipine 5 mg p.o. daily, Plavix 75 mg p.o. daily, gabapentin 600 mg p.o. t.i.d., albuterol 2 puffs 4 times daily p.r.n., Claritin 10 mg p.o. daily, Tylenol 650 mg p.o. q.6 hours p.r.n., multivitamin with minerals 1 tablet daily, DuoNebs q.6 hours p.r.n., aspirin 81 mg p.o. daily, folic acid 800 mcg p.o. daily. FAMILY HISTORY: Significant for father has heart disorder, stroke, arthritis. Mother has arthritis, stroke. Sister has esophageal cancer. SOCIAL HISTORY: , smokes half pack a day for 24 years. No alcohol use, no drug use. REVIEW OF SYMPTOMS: As per HPI. Rest of review of systems negative. PHYSICAL EXAMINATION: GENERAL: The patient is alert and oriented, not in acute distress. VITAL SIGNS: Temperature 36.4, pulse 70, respiratory rate 14, blood pressure 130/81, oxygen 97% room air. HEENT: No pallor, no icterus. Pupils equal, round, reactive to light. NECK: No JVD, no lymphadenopathy, no carotid bruit. CARDIOVASCULAR: S1, S2 heard, regular rate and rhythm, no murmur, no gallop. RESPIRATORY SYSTEM: Normal AP diameter. No accessory muscle use. No wheezing, no crackles. ABDOMEN: Soft, bowel sounds present. Nontender. No distention. CENTRAL NERVOUS SYSTEM: Cranial nerves II-XII grossly intact, nonfocal. EXTREMITIES: Mild pedal edema present, small 0.5 cm right calf wound, is in dressing. No erythema, no drainage seen. LABORATORIES: WBC 14.2, hemoglobin 15.3, hematocrit 44.5, platelets 285. Sodium 144, potassium 3.7, chloride 106, bicarb 30, BUN 19, creatinine 0.9, serum glucose 94, calcium 9.2, magnesium 2.2, total bilirubin 0.3, AST 16, ALT 22, alkaline phosphatase 104. Troponin I less than 0.015. BNP 448. Lipase 121. CT of the chest, no PE, Chest x-ray: No acute cardiopulmonary findings. EKG: Normal sinus rhythm with sinus arrhythmia with rate of 65, no significant change from previous EKG. ASSESSMENT AND PLAN: 1. This is a 78-year-old female who presents with chest pain,rule out ACS. Risk factors of age and tobacco abuse, hypertension. Initial workup was negative. Will observe her on telemetry floor. Serial cardiac enzymes, n.p.o., echocardiogram. Check fasting lipid profile and consult cardiology in a.m. for further recommendation for possible stress test. 2. History of peripheral vascular disease, on aspirin, Plavix and statin. 3. History of hypertension, on Toprol, lisinopril and amlodipine. We will monitor the blood pressure. 4. History of cerebrovascular accident, on aspirin, Plavix, statin. 5. Gastroesophageal reflux disease, on PPI. 7. Interstitial lung disease, on nebs p.r.n. 8. Deep venous thrombosis prophylaxis, SCDs for now. 9. Disposition: Observation in tele floor. Expect to discharge home and follow with his family doctor. Level 1 full code. MTDD
[2019-01-18] MEDS: GABAPENTIN 600 MG TAB PO SCH ×2 (08:05→13:51)
--- NOTE | 2019-01-18 08:42 | Cardiology Consultation ---
Date of Consultation January 18, 2019 Assessment & Plan (1) Chest pain: Per patient description, atypical etiology. Pain more epigastric region, possible GI. Cardiac enzymes negative x2. EKG without acute ischemic changes. She does have significant risk factors for CAD including hypertension, dyslipidemia, PVD. Recommend proceeding with dobutamine stress echo to r/o ischemia. Case discussed with Dr. Villanueva. Further recommendations pending results of stress test. (2) Hypertension: Continue home medications. (3) Peripheral vascular disease: Continue ASA, Plavix, atorvastatin (4) Dyslipidemia: LDL 63 on atorvastatin Supervising Physician Co-Signing Physician Notes Patient seen and examined. Reports epigastric and lower substernal chest discomfort prior to admission. Currently chest pain-free. Denies exertional chest discomfort or unusual shortness of breath. No orthopnea, PND, or palpitations. PE: VSS, Gen: NAD, AAOx3, [id number]. Heart: Regular rhythm, normal S1, S2. 1/6 systolic murmur heard at apex. Lungs: Clear B/L. Ext: Trace to mild bilateral pedal and pretibial edema. A/P: Agree with above PA-C history, physical exam, assessment and plan. Patient proceed with dobutamine stress echocardiography as ordered for further evaluation of atypical chest discomfort. Addendum: Dobutamine stress echo negative for inducible ischemia. Continue current cardiovascular medications. History of Present Illness Reason for Consultation: Chest pain Requesting Physician: Dr. Jaydon Torres Attending Physician: Dr. 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 Patient states she was in usual state of health yesterday when she Was sitting/reading the paper when she developed sudden onset epigastric and left- sided chest pain described as a sharp/stabbing sensation with radiation to her back. She describes the pain as 10 out of 10. Symptoms were persistent for approximately 30 minutes and due to severity, she called 911. Upon arrival EMS treated her with aspirin, nitro patch and fentanyl which eased her symptoms. Upon arrival to ER she reports she was chest pain free. Cardiac enzymes unremarkable x2. No acute EKG changes. At time of consult patient feeling ok. Primary complaint is fatigue/tired from not sleeping. No recurrent chest pain. No shortness of breath. No cough, fever, chills. Chronic LE edema, unchanged per patient. She denies recent chest pain with activities such as walking, cleaning or doing household activities. No changes to her functional capacity. No dizziness,syncope or near syncope. no palpitations. No orthopnea, PND. Allergies Allergy/AdvReac Type Severity Reaction Status Date / Time adhesive Allergy Intermediate IRRITATES Verified 01/17/19 21:47 SKIN benzoin Allergy Intermediate SKIN Verified 01/17/19 21:47 IRRITATION honey Allergy Intermediate NAUSEA/VOMI Verified 01/17/19 21:47 TING hydrogen peroxide Allergy Intermediate BURNING Verified 01/17/19 21:47 ITCH SKIN ceftriaxone AdvReac Unknown burning at Verified 01/17/19 21:47 site of injection Home Medications Home Medications Medication Instructions Recorded Confirmed Type acetaminophen [Tylenol] 650 mg PO Q6H PRN 01/17/19 01/17/19 History albuterol sulfate [ProAir HFA] 2 puff INHALATION QID PRN 01/17/19 01/17/19 History amlodipine 5 mg PO DAILY 01/17/19 01/17/19 History aspirin [Aspir-81] 81 mg PO DAILY 01/17/19 01/17/19 History atorvastatin 80 mg PO HS 01/17/19 01/17/19 History clopidogrel 75 mg PO DAILY 01/17/19 01/17/19 History folic acid 0.8 mg PO DAILY 01/17/19 01/17/19 History gabapentin 600 mg PO TID 01/17/19 01/17/19 History ipratropium-albuterol 3 ml INHALATION Q6 PRN 01/17/19 01/17/19 History lisinopril 5 mg PO DAILY 01/17/19 01/17/19 History loratadine [Claritin] 10 mg PO DAILY 01/17/19 01/17/19 History metoprolol succinate 25 mg PO DAILY 01/17/19 01/17/19 History multivitamin with minerals 1 tab PO DAILY 01/17/19 01/17/19 History omeprazole 20 mg PO DAILY 01/17/19 01/17/19 History Patient History Medical History Peripheral vascular disease (Chronic) Hypertension (Chronic) Gastro-esophageal reflux (Chronic) HTN (hypertension) (Chronic) Dyslipidemia (Chronic) PAD (peripheral artery disease) (Chronic) Stroke (Resolved) Surgical History Hx of appendectomy (Resolved) S/P femoral-popliteal bypass surgery (Resolved) History of cataract surgery (Resolved) Social History Preferred Language: Mongolian Communication Ability: Effective Ssds Mk 2 Advanced Operator Required: No Beliefs That Will Affect Care: None Current Living Situation: Family Feels Safe at Home: Yes Safety Concerns: Feels Safe At This Time Smoking Status: Current every day smoker Tobacco Type: cigarettes Cigarettes Per Day: 3-5 Hx Alcohol Use: Yes Alcohol type: beer and wine Hx Substance Use: No Review of Systems Review of Systems: All systems reviewed & are unremarkable except as noted in HPI & below Physical Exam Physical Exam: General: NAD. A+Ox3. HEENT: Normocephalic. Atraumatic. PERRL. EOMI. Conjunctiva and sclera clear. NECK: No carotid bruits. No JVD. Carotid upstrokes are brisk. Heart: RRR. S1 and S2 noted with II/ systolic murmur at apex. No rubs, gallops. PMI non displaced. Lungs: Clear to auscultation and percussion. No wheezes, rhonchi, rales. Abdomen: Normal bowel sounds. Soft. Nontender. No masses or organomegaly. No abdominal bruits. Extremities: 1+ non pitting LE edema. No clubbing or cyanosis. Pulses: radial=2/4, posterior tibial=2/4, dorsalis pedis = 2/4. NEURO: No focal deficits. PSYCH: Normal. Results & Data Vital Signs (Past 12 Hours) Vital Signs Temp Pulse Pulse Resp BP BP Pulse Ox 01/18/19 01:26 36.4 C L 67 16 151/63 H 95 01/18/19 01:00 63 23 130/71 98 01/18/19 00:45 65 13 148/71 H 97 01/18/19 00:31 70 14 130/81 97 01/18/19 00:15 66 12 130/67 95 01/18/19 00:01 61 12 116/64 91 01/17/19 23:53 65 18 131/69 91 01/17/19 22:44 65 18 Laboratory Results 01/18/19 01/18/19 01/18/19 Range/Units 05:02 05:02 05:02 WBC 14.37 H (4.8-10.8) K/uL RBC 4.42 (4.2-5.4) M/uL Hgb 14.0 (12.0-16.0) g/dL Hct 41.6 (37-47) % MCV 94.1 (80-100) fL MCH 31.7 (25-34) pg MCHC 33.7 (32-36) g/dL RDW Std Deviation 52.5 H (36.4-46.3) fL RDW Coeff of [place] 15.2 H (11.5-14.5) % Plt Count 238 (130-400) K/uL MPV 11.3 H (7.4-10.4) fL Immature Gran % (Auto) 0.3 % Neut % (Auto) 53.5 % Lymph % (Auto) 30.1 % [place] % (Auto) 12.0 % Eos % (Auto) 3.5 % Baso % (Auto) 0.6 % Immature Gran # (Auto) 0.04 H (0.00-0.02) K/uL Neut # (Auto) 7.68 H (1.4-6.5) K/uL Lymph # (Auto) 4.33 H (1.2-3.4) K/uL [place] # (Auto) 1.73 H (0.11-0.59) K/uL Eos # (Auto) 0.50 (0-0.5) K/uL Baso # (Auto) 0.09 (0-0.2) K/uL Sodium 143 (136-145) mmol/L Potassium 3.7 (3.5-5.1) mmol/L Chloride 110 H (98-107) mmol/L Carbon Dioxide 28 (21-32) mmol/L Anion Gap 5.0 (3-11) BUN 17 (7-18) mg/dl Creatinine 0.75 (0.6-1.2) mg/dl Est Cr Clr Drug Dosing 64.1 ml/min Est GFR ( Amer) 89.7 Est GFR (Non-Af Amer) 77.4 BUN/Creatinine Ratio 22.3 H (10-20) Glucose 79 (70-99) mg/dl Calcium 8.6 (8.5-10.1) mg/dl Magnesium 2.3 (1.8-2.4) mg/dl Total Bilirubin (0.2-1) mg/dl AST (15-37) U/L ALT (12-78) U/L Alkaline Phosphatase (45-117) U/L Troponin I < 0.015 (0-0.045) ng/ml NT-Pro-B Natriuret Pep (0-1800) pg/ml Total Protein (6.4-8.2) gm/dl Albumin (3.4-5.0) gm/dl Globulin (2.5-4.0) gm/dl Albumin/Globulin Ratio (0.9-2) Triglycerides 99 (0-150) mg/dl Cholesterol 120 (0-200) mg/dl LDL Cholesterol, Calc 63 mg/dl VLDL Cholesterol, Calc 20 mg/dl HDL Cholesterol 37 mg/dl Cholesterol/HDL Ratio 3 Lipase (73-393) U/L 01/17/19 01/17/19 Range/Units 20:08 20:08 WBC 14.23 H (4.8-10.8) K/uL RBC 4.72 (4.2-5.4) M/uL Hgb 15.3 (12.0-16.0) g/dL Hct 44.5 (37-47) % MCV 94.3 (80-100) fL MCH 32.4 (25-34) pg MCHC 34.4 (32-36) g/dL RDW Std Deviation 52.6 H (36.4-46.3) fL RDW Coeff of [place] 15.2 H (11.5-14.5) % Plt Count 285 (130-400) K/uL MPV 12.2 H (7.4-10.4) fL Immature Gran % (Auto) 0.4 % Neut % (Auto) 56.3 % Lymph % (Auto) 27.8 % [place] % (Auto) 12.0 % Eos % (Auto) 2.9 % Baso % (Auto) 0.6 % Immature Gran # (Auto) 0.05 H (0.00-0.02) K/uL Neut # (Auto) 8.03 H (1.4-6.5) K/uL Lymph # (Auto) 3.95 H (1.2-3.4) K/uL [place] # (Auto) 1.71 H (0.11-0.59) K/uL Eos # (Auto) 0.41 (0-0.5) K/uL Baso # (Auto) 0.08 (0-0.2) K/uL Sodium 144 (136-145) mmol/L Potassium 3.7 (3.5-5.1) mmol/L Chloride 106 (98-107) mmol/L Carbon Dioxide 30 (21-32) mmol/L Anion Gap 8.0 (3-11) BUN 19 H (7-18) mg/dl Creatinine 0.98 (0.6-1.2) mg/dl Est Cr Clr Drug Dosing 50.5 ml/min Est GFR ( Amer) 64.9 Est GFR (Non-Af Amer) 56.0 BUN/Creatinine Ratio 19.5 (10-20) Glucose 94 (70-99) mg/dl Calcium 9.2 (8.5-10.1) mg/dl Magnesium 2.2 (1.8-2.4) mg/dl Total Bilirubin 0.3 (0.2-1) mg/dl AST 16 (15-37) U/L ALT 22 (12-78) U/L Alkaline Phosphatase 104 (45-117) U/L Troponin I < 0.015 (0-0.045) ng/ml NT-Pro-B Natriuret Pep 448 (0-1800) pg/ml Total Protein 7.1 (6.4-8.2) gm/dl Albumin 3.6 (3.4-5.0) gm/dl Globulin 3.5 (2.5-4.0) gm/dl Albumin/Globulin Ratio 1.0 (0.9-2) Triglycerides (0-150) mg/dl Cholesterol (0-200) mg/dl LDL Cholesterol, Calc mg/dl VLDL Cholesterol, Calc mg/dl HDL Cholesterol mg/dl Cholesterol/HDL Ratio Lipase 121 (73-393) U/L Diagnostic Findings Chest CTA on admission: 1. No pulmonary emboli identified. 2. Groundglass opacities with mosaic attenuation within the lungs which may reflect air trapping. 3. Mild cardiomegaly. chest Xray on admission: IMPRESSION: Low lung volumes. No acute cardiopulmonary findings. ECG Indication: chest pain Rhythm: normal sinus Findings: no acute ischemic change Change: no significant change (1) Chest pain Chest pain type: unspecified Qualified Code(s): R07.9 - Chest pain, unspecified
[2019-01-18] MEDS ORDERED: AMLODIPINE BESYLATE 5 MG TAB PO SCH (09:00)
[2019-01-18] MEDS ORDERED: PANTOprazole 40 MG TAB PO SCH (09:00)
[2019-01-18] MEDS ORDERED: CLOPIDOGREL BISULFATE 75 MG TAB PO SCH (09:00)
[2019-01-18] MEDS ORDERED: ASPIRIN 81 MG ECTAB PO SCH (09:00)
[2019-01-18] MEDS ORDERED: METOPROLOL SUCC 25MG EXT REL TAB PO SCH (09:00)
[2019-01-18] MEDS ORDERED: LISINOPRIL 5 MG TAB PO SCH (09:00)
[2019-01-18] MEDS ORDERED: CEROVITE ADV FORMULA TAB PO SCH (09:00)
[2019-01-18] MEDS ORDERED: LORATADINE 10 MG TAB PO SCH (09:00)
[2019-01-18] MEDS ORDERED: FOLIC ACID 400 MCG TAB PO SCH (09:00)
[2019-01-18] MEDS ORDERED: ATROPINE SULFATE 0.1 MG/ML 10ML SYR IV ONE (09:40)
[2019-01-18] MEDS ORDERED: DOBUTamine HCL 12.5 MG/ML 20 ML VIAL IV ONE (09:40)
[2019-01-18] MEDS ORDERED: METOPROLOL TARTRATE 1 MG/ML VIAL IV ONE (09:40)
--- NOTE | 2019-01-18 16:08 | Hospitalist Progress Note ---
Date of Service January 18, 2019 Assessment & Plan (1) Chest pain: Symptom has completely resolved Since presentation was atypical for angina No complaint of shortness of breath or dyspnea on exertion Serial cardiac markers negative Appreciate input from cardiology Resting echo shows no wall motion abnormality Dobutamine stress test negative for stress-induced ischemia Patient is stable to be discharged home No change in medication indicated (2) Dyspnea: Symptom has completely resolved, no cough no hypoxia adequate oxygenation in room air (3) Peripheral vascular disease: Continue aspirin Plavix and statin (4) Hypertension: Blood pressure stable continue outpatient meds (5) Gastro-esophageal reflux: Continue on PPI (6) Dyslipidemia: On statin Status: Full code DVT prophylaxis: Subcu heparin Disposition: Stable to be discharged home to [facility] No complaint of epigastric discomfort, no chest pain no heaviness Dobutamine stress test negative, Finished dinner, very eager to be discharged home Physical Exam Physical Exam: GENERAL: No sign of distress, HEENT: Sclera nonicteric, pink-purple bilateral equal reactive to light extraocular muscle intact Normal oral mucosa, neck: No JVD, no thyromegaly, trachea midline Lungs: Clear to auscultate, no wheeze or rales Cardiovascular: Regular S1 and S2, no murmur or gallop, no JVD, no lower extremity edema Abdomen: Soft, nontender, bowel sounds active, no hepatosplenomegaly Extremities: No rash or deformity, normal joint, Neuro: No focal neurological deficit, no dysarthria, no facial droop Psych: Alert awake oriented x3: Euthymic Skin: No rash LYMPH NODES: No cervical lymphadenopathy Results & Data Vital Signs (Past 12 Hours) Vital Signs Temp Pulse Pulse Resp BP Pulse Ox 01/18/19 15:49 36.8 C 52 L 18 121/73 96 01/18/19 15:15 62 01/18/19 14:56 36.8 C 52 L 18 121/73 96 01/18/19 11:24 36.7 C 58 L 18 118/68 98 01/18/19 09:00 58 L (1) Chest pain Chest pain type: unspecified Qualified Code(s): R07.9 - Chest pain, unspecified (2) Dyspnea Dyspnea type: unspecified Qualified Code(s): R06.00 - Dyspnea, unspecified
--- NOTE | 2019-01-18 16:09 | Discharge Summary ---
Date of Service January 18, 2019 Principal Diagnosis Chest pain/noncardiac/negative dobutamine stress test Discharge Exam GENERAL: No sign of distress, HEENT: Sclera nonicteric, pink-purple bilateral equal reactive to light extraocular muscle intact Normal oral mucosa, neck: No JVD, no thyromegaly, trachea midline Lungs: Clear to auscultate, no wheeze or rales Cardiovascular: Regular S1 and S2, no murmur or gallop, no JVD, no lower extremity edema Abdomen: Soft, nontender, bowel sounds active, no hepatosplenomegaly Extremities: No rash or deformity, normal joint, Neuro: No focal neurological deficit, no dysarthria, no facial droop Psych: Alert awake oriented x3: Euthymic Skin: No rash LYMPH NODES: No cervical lymphadenopathy Discharge Data Allergies Allergy/AdvReac Type Severity Reaction Status Date / Time adhesive Allergy Intermediate IRRITATES Verified 01/17/19 21:47 SKIN benzoin Allergy Intermediate SKIN Verified 01/17/19 21:47 IRRITATION honey Allergy Intermediate NAUSEA/VOMI Verified 01/17/19 21:47 TING hydrogen peroxide Allergy Intermediate BURNING Verified 01/17/19 21:47 ITCH SKIN ceftriaxone AdvReac Unknown burning at Verified 01/17/19 21:47 site of injection Consultations 01/18/19 01:20 ED Decision to Admit Stat 01/18/19 05:00 Consult Cardiology Routine Ordered Studies 01/17/19 22:28 CT angio chest PE protocol Stat Hospital Course (1) Chest pain: Symptom has completely resolved Since presentation was atypical for angina No complaint of shortness of breath or dyspnea on exertion Serial cardiac markers negative Appreciate input from cardiology Resting echo shows no wall motion abnormality Dobutamine stress test negative for stress-induced ischemia Patient is stable to be discharged home No change in medication indicated (2) Dyspnea: Symptom has completely resolved, no cough no hypoxia adequate oxygenation in room air (3) Peripheral vascular disease: Continue aspirin Plavix and statin (4) Hypertension: Blood pressure stable continue outpatient meds (5) Gastro-esophageal reflux: Continue on PPI (6) Dyslipidemia: On statin Status: Full code DVT prophylaxis: Subcu heparin Disposition: Stable to be discharged home to Total Time Total Time Spent Total Time Spent (In Minutes): Proximately 45-minute Total Time Includes: Examination of the Patient, Discharge Planning and Medication Reconciliation Discharge Plan Discharge Items Patient Disposition: Home - Self-Care Reason For Visit: CHEST PAIN Discharge Diagnosis: Chest pain/noncardiac, negative dobutamine stress test Discharge Goals: Decrease discomfort Activity: Resume your previous activity Non-emergency contact: Primary Care Provider Call non-emergency contact if: you have any medication questions Diet: Heart Healthy Addtl Provider Instructions: Hospital follow-up with Dr. Mosley at [facility] on , 01/21/2019 at 1:05 PM Prescriptions: Continued atorvastatin 80 mg Tablet 80 mg PO HS RF: 0 acetaminophen [Tylenol] 325 mg Tablet 650 mg PO Q6H PRN (Reason: Pain) RF: 0 gabapentin 600 mg Tablet 600 mg PO TID RF: 0 ipratropium-albuterol 0.5 mg-3 mg(2.5 mg base)/3 mL Solution For Nebulization 3 ml INHALATION Q6 PRN (Reason: Shortness Of Breath Or Wheezing) RF: 0 clopidogrel 75 mg Tablet 75 mg PO DAILY RF: 0 amlodipine 5 mg Tablet 5 mg PO DAILY RF: 0 aspirin [Aspir-81] 81 mg Tablet,Delayed Release (Dr/Ec) 81 mg PO DAILY RF: 0 lisinopril 5 mg Tablet 5 mg PO DAILY RF: 0 metoprolol succinate 25 mg Tablet Extended Release 24 Hr 25 mg PO DAILY RF: 0 multivitamin with minerals Tablet 1 tab PO DAILY RF: 0 albuterol sulfate [ProAir HFA] 90 mcg/actuation Hfa Aerosol Inhaler 2 puff INHALATION QID PRN (Reason: Shortness Of Breath Or Wheezing) RF: 0 loratadine [Claritin] 10 mg Tablet 10 mg PO DAILY RF: 0 folic acid 0.8 mg Capsule 0.8 mg PO DAILY RF: 0 omeprazole 20 mg Tablet,Delayed Release (Dr/Ec) 20 mg PO DAILY RF: 0 Stand-Alone Forms: Call Back Authorization, [facility] Discharge Orders: Discharge Order (Routine); Ordered 01/18/19 Ordered By: Margaret Ny Admission Data Admit Date/Time: 01/18/19 00:41 Attending Provider: Margaret Ny Admit Provider: Yimi Torres Primary Care Provider: Marcy Villanueva Other Providers: Yimi Torres ; Jacky Collins ; Marco Rinaldi ; Chris Doll ; Shad Villanueva ; Harsh Batres ; Pankaj Wasserman ; Sally Herrera ; Cherelle Barone Service: Telemetry Medical Other Interventions: Discharge Summary Assessment (RN) Last Done: 01/18/19 15:49
[2019-01-18] MEDS ORDERED: ATORVASTATIN 40 MG TAB PO SCH (21:00)
--- NOTE | 2019-01-19 03:45 | Emergency Department Note ---
Entered by Chrissy Guzman acting as a scribe for History of Present Illness General Chief complaint: Chest Pain Stated complaint: CHEST PAIN Time Seen by Provider: 01/17/19 20:32 Source: patient History of Present Illness Onset (ago): hour(s) (just prior to arrival ) Location: chest Radiation: back Pain Consistency: + other (episode ) Relieved By: + medication (aspirin) Associated symptoms: + nausea/vomiting (positive nausea; negative vomiting), + shortness of breath and + other (positive left-sided jaw pain; positive lightheadedness; negative neck pain; negative new leg swelling; positive worsening leg sores); no diaphoresis Treatments prior to arrival: aspirin The patient is a 78 year old female who presents to the Emergency Room with complaints of an episode of chest pain that began just prior to arrival. The patient states that this pain radiates through to her back. She states that she has had some nausea, left-sided jaw pain, lightheadedness, and shortness of breath with this chest pain. The patient denies neck pain and sweating during this time. The patient states that she has swelling in her legs at baseline, and denies new swelling. She states that she was at her baseline today until her symptoms began. The patient states that she was given 4 baby aspirin by EMS and states that this helped to relieve some of her symptoms. The patient states that she has several sores on her legs, and states that these are getting worse. Patient denies any prior cardiac history, does not routinely follow with cardiology. Home Medications Home Medications Medication Instructions Recorded Confirmed Type acetaminophen [Tylenol] 650 mg PO Q6H PRN 01/17/19 01/17/19 History albuterol sulfate [ProAir HFA] 2 puff INHALATION QID PRN 01/17/19 01/17/19 History amlodipine 5 mg PO DAILY 01/17/19 01/17/19 History aspirin [Aspir-81] 81 mg PO DAILY 01/17/19 01/17/19 History atorvastatin 80 mg PO HS 01/17/19 01/17/19 History clopidogrel 75 mg PO DAILY 01/17/19 01/17/19 History folic acid 0.8 mg PO DAILY 01/17/19 01/17/19 History gabapentin 600 mg PO TID 01/17/19 01/17/19 History ipratropium-albuterol 3 ml INHALATION Q6 PRN 01/17/19 01/17/19 History lisinopril 5 mg PO DAILY 01/17/19 01/17/19 History loratadine [Claritin] 10 mg PO DAILY 01/17/19 01/17/19 History metoprolol succinate 25 mg PO DAILY 01/17/19 01/17/19 History multivitamin with minerals 1 tab PO DAILY 01/17/19 01/17/19 History omeprazole 20 mg PO DAILY 01/17/19 01/17/19 History Allergies Allergy/AdvReac Type Severity Reaction Status Date / Time adhesive Allergy Intermediate IRRITATES Verified 01/17/19 21:47 SKIN benzoin Allergy Intermediate SKIN Verified 01/17/19 21:47 IRRITATION honey Allergy Intermediate NAUSEA/VOMI Verified 01/17/19 21:47 TING hydrogen peroxide Allergy Intermediate BURNING Verified 01/17/19 21:47 ITCH SKIN ceftriaxone AdvReac Unknown burning at Verified 01/17/19 21:47 site of injection Past Med/Surg History Medical History Peripheral vascular disease (Chronic) Hypertension (Chronic) Gastro-esophageal reflux (Chronic) HTN (hypertension) (Chronic) Dyslipidemia (Chronic) PAD (peripheral artery disease) (Chronic) Stroke (Resolved) Surgical History Hx of appendectomy (Resolved) S/P femoral-popliteal bypass surgery (Resolved) History of cataract surgery (Resolved) Social History Preferred Language: Yoruba Communication Ability: Effective Medical Lead Required: No Beliefs That Will Affect Care: None Current Living Situation: Family Feels Safe at Home: Yes Safety Concerns: Feels Safe At This Time Smoking Status: Current every day smoker Tobacco Type: cigarettes Cigarettes Per Day: 3-5 Hx Alcohol Use: Yes Alcohol type: beer and wine Hx Substance Use: No Review of Systems See HPI for pertinent positives & negatives. and A total of 10 systems reviewed and were otherwise negative Physical Exam Vital Signs Vital Signs - 24 hr 01/17/19 20:31 01/17/19 22:44 01/17/19 23:53 Temperature 97.5 F L Temperature Source Oral Sepsis Recent Fever Within 48 Hours No Sepsis Action Taken by Nursing No Action Required Pulse Rate 66 Pulse Rate [Apical] 65 65 Pulse Rate from SpO2 Sensor Respiratory Rate 18 18 18 Respiratory Effort / Characteristics Non-Labored Respiratory Depth Normal Blood Pressure 128/88 Blood Pressure [Left Arm] 131/69 Blood Pressure Mean 101 Blood Pressure Mean [Left Arm] 89 Pulse Oximetry 97 91 Oxygen Delivery Method Room Air Room Air 01/18/19 00:01 01/18/19 00:15 01/18/19 00:31 Temperature Temperature Source Sepsis Recent Fever Within 48 Hours Sepsis Action Taken by Nursing Pulse Rate 61 66 70 Pulse Rate [Apical] Pulse Rate from SpO2 Sensor 62 66 69 Respiratory Rate 12 12 14 Respiratory Effort / Characteristics Respiratory Depth Blood Pressure 116/64 130/67 130/81 Blood Pressure [Left Arm] Blood Pressure Mean 81 88 97 Blood Pressure Mean [Left Arm] Pulse Oximetry 91 95 97 Oxygen Delivery Method 01/18/19 00:45 01/18/19 01:00 01/18/19 01:26 Temperature Temperature Source Sepsis Recent Fever Within 48 Hours Sepsis Action Taken by Nursing Pulse Rate 65 63 Pulse Rate [Apical] Pulse Rate from SpO2 Sensor 64 63 Respiratory Rate 13 23 Respiratory Effort / Characteristics Respiratory Depth Blood Pressure 148/71 H 130/71 Blood Pressure [Left Arm] Blood Pressure Mean 96 90 Blood Pressure Mean [Left Arm] Pulse Oximetry 97 98 Oxygen Delivery Method Room Air GENERAL: alert, well appearing, well nourished, no distress, non-toxic EYE EXAM: normal conjunctiva, PERRL and EOM's grossly intact OROPHARYNX: no exudate, no erythema, lips, buccal mucosa, and tongue normal and mucous membranes are moist NECK: supple, no nuchal rigidity, no adenopathy, non-tender LUNGS: Clear to auscultation. Normal chest wall mechanics, no w/r/r HEART: no murmurs, S1 normal and S2 normal ABDOMEN: abdomen soft, non-tender, normo-active bowel sounds, no masses, no rebound or guarding. BACK: Back is symmetrical on inspection and there is no deformity, no midline tenderness, no CVA tenderness. SKIN: no bruising. Scattered maculopapular erythematous lesions noted at the right medial knee and right calf. Band-aids applied at home by the patient. No active drainage or bleeding. No surrounding erythema. Tender to touch. No increased warmth. UPPER EXTREMITIES: upper extremities are grossly normal. Normal pulses bilaterally, full range of motion bilaterally. LOWER EXTREMITIES: Trace bilateral lower extremity edema. Normal pulses b ilaterally, full range of motion bilaterally. NEURO EXAM: Normal sensorium, cranial nerves II-XII grossly intact, normal speech, no gross weakness of arms, no gross weakness of legs. Course 2057: Past medical records reviewed. The patient was evaluated in room B6. A complete history and physical exam was performed. 2325: Upon reevaluation, the patient has minimal pain, but states that her pain was exacerbated when she got up to walk to the bathroom. 2331: I discussed the case with Dr. Pratt Hospitalist who accepted the patient for further evaluation. Consultations Consultation #1: I discussed the case with Dr. Pratt Hospitalist who accepted the patient for further evaluation. Time: 23:31 Administered Medications Discontinued Medications Amlodipine Besylate (Norvasc) 5 mg PO DAILY [facility] Stop: 02/17/19 08:59 Last Admin: 01/18/19 08:05 Dose: 5 mg Documented by: [id number] Aspirin (Ecotrin Ectab) 81 mg PO DAILY [facility] Stop: 02/17/19 08:59 Last Admin: 01/18/19 11:12 Dose: 81 mg Documented by: [id number] Atropine Sulfate (Atropine Sulfate) Confirm Administered Dose 1 mg IV .STK-MED [facility] Stop: 01/18/19 09:41 Last Admin: 01/18/19 11:01 Dose: Not Given Documented by: [id number] Clopidogrel Bisulfate (Plavix) 75 mg PO DAILY [facility] Stop: 02/17/19 08:59 Last Admin: 01/18/19 11:12 Dose: 75 mg Documented by: [id number] Dobutamine HCl (Dobutrex) Confirm Administered Dose 250 mg IV .STK-MED ONE Stop: 01/18/19 09:41 Last Admin: 01/18/19 11:01 Dose: Not Given Documented by: [id number] Fentanyl Citrate (Fentanyl Citrate) 50 mcg IV NOW [facility] Stop: 01/17/19 23:27 Last Admin: 01/17/19 23:43 Dose: 50 mcg Documented by: [id number] Folic Acid (Folvite) 800 mcg PO DAILY [facility] Stop: 02/17/19 08:59 Last Admin: 01/18/19 08:05 Dose: 800 mcg Documented by: [id number] Gabapentin (Neurontin) 600 mg PO TID [facility] Stop: 02/17/19 08:59 Last Admin: 01/18/19 13:51 Dose: 600 mg Documented by: [id number] Admin: 01/18/19 08:05 Dose: 600 mg Documented by: [id number] Ioversol (Optiray 320 125ml) 81 ml IV ONCE PRN PRN Reason: Interaction Checking Stop: 01/21/19 22:55 Last Admin: 01/17/19 22:56 Dose: 81 ml Documented by: [id number] Lisinopril (Zestril) 5 mg PO DAILY [facility] Stop: 02/17/19 08:59 Last Admin: 01/18/19 08:05 Dose: 5 mg Documented by: [id number] Loratadine (Claritin) 10 mg PO DAILY [facility] Stop: 02/17/19 08:59 Last Admin: 01/18/19 08:05 Dose: 10 mg Documented by: [id number] Metoprolol Succinate (Toprol Xl) 25 mg PO DAILY [facility] Stop: 02/17/19 08:59 Last Admin: 01/18/19 08:05 Dose: 25 mg Documented by: [id number] Metoprolol Tartrate (Lopressor) Confirm Administered Dose 5 mg IV .STK-MED ONE Stop: 01/18/19 09:41 Last Admin: 01/18/19 11:02 Dose: Not Given Documented by: [id number] Multivitamins/Minerals (Multivitamin W/ Minerals Tab) 1 tab PO DAILY [facility] Stop: 02/17/19 08:59 Last Admin: 01/18/19 08:05 Dose: 1 tab Documented by: [id number] Nitroglycerin (Nitro-Bid 2%) 0.5 inch EXT NOW ONE Stop: 01/17/19 23:01 Last Admin: 01/17/19 23:43 Dose: 0.5 inch Documented by: [id number] Pantoprazole Sodium (Protonix) 40 mg PO DAILY [facility] Stop: 02/17/19 08:59 Last Admin: 01/18/19 08:05 Dose: 40 mg Documented by: [id number] Medical Decision Making Differential Diagnosis Differential diagnosis: Etiologies such as cardiac ischemia, aortic dissection, pulmonary embolism, pneumonia, pneumothorax, musculoskeletal, infections, pericarditis, myocarditis, esophageal rupture, gastrointestinal, as well as others were entertained. Medical Records Attestation: I reviewed the patient's medical records. Home Medications Current Medication List: was personally reviewed by me Laboratory Data Attestation: I reviewed the patient's lab results. Result diagrams: 01/18/19 05:02 01/18/19 05:02 Lab Results 01/17/19 01/17/19 Range/Units 20:08 20:08 WBC 14.23 H (4.8-10.8) K/uL RBC 4.72 (4.2-5.4) M/uL Hgb 15.3 (12.0-16.0) g/dL Hct 44.5 (37-47) % MCV 94.3 (80-100) fL MCH 32.4 (25-34) pg MCHC 34.4 (32-36) g/dL RDW Std Deviation 52.6 H (36.4-46.3) fL RDW Coeff of Bay 15.2 H (11.5-14.5) % Plt Count 285 (130-400) K/uL MPV 12.2 H (7.4-10.4) fL Immature Gran % (Auto) 0.4 % Neut % (Auto) 56.3 % Lymph % (Auto) 27.8 % Ida % (Auto) 12.0 % Eos % (Auto) 2.9 % Baso % (Auto) 0.6 % Immature Gran # (Auto) 0.05 H (0.00-0.02) K/uL Neut # (Auto) 8.03 H (1.4-6.5) K/uL Lymph # (Auto) 3.95 H (1.2-3.4) K/uL Ida # (Auto) 1.71 H (0.11-0.59) K/uL Eos # (Auto) 0.41 (0-0.5) K/uL Baso # (Auto) 0.08 (0-0.2) K/uL Sodium 144 (136-145) mmol/L Potassium 3.7 (3.5-5.1) mmol/L Chloride 106 (98-107) mmol/L Carbon Dioxide 30 (21-32) mmol/L Anion Gap 8.0 (3-11) BUN 19 H (7-18) mg/dl Creatinine 0.98 (0.6-1.2) mg/dl Est Cr Clr Drug Dosing 50.5 ml/min Est GFR ( Amer) 64.9 Est GFR (Non-Af Amer) 56.0 BUN/Creatinine Ratio 19.5 (10-20) Glucose 94 (70-99) mg/dl Calcium 9.2 (8.5-10.1) mg/dl Magnesium 2.2 (1.8-2.4) mg/dl Total Bilirubin 0.3 (0.2-1) mg/dl AST 16 (15-37) U/L ALT 22 (12-78) U/L Alkaline Phosphatase 104 (45-117) U/L Troponin I < 0.015 (0-0.045) ng/ml NT-Pro-B Natriuret Pep 448 (0-1800) pg/ml Total Protein 7.1 (6.4-8.2) gm/dl Albumin 3.6 (3.4-5.0) gm/dl Globulin 3.5 (2.5-4.0) gm/dl Albumin/Globulin Ratio 1.0 (0.9-2) Lipase 121 (73-393) U/L Imaging Data Radiologist's Impression: Radiology results as stated below per my review and the radiologist's interpretation: XR chest 1V portable CLINICAL HISTORY: Chest pain. COMPARISON STUDY: Chest CT and chest radiograph August 13, 2017. FINDINGS: Lung volumes are mildly diminished. There is no pneumothorax or pleural effusion. There may be mild left basilar atelectasis. There is no evidence for pulmonary edema or pneumonia. Cardiomediastinal silhouette is stable. IMPRESSION: Low lung volumes. No acute cardiopulmonary findings. Electronically signed by: Tank Godinez M.D. 01/17/2019 9:[address] ANGIOGRAPHY OF THE CHEST, PULMONARY EMBOLUS PROTOCOL CLINICAL HISTORY: Shortness of breath. Chest pain. Evaluate for pulmonary embolus. COMPARISON STUDY: Chest CT August 13, 2017. Chest radiograph performed earlier today. TECHNIQUE: Following IV administration of 81 mL of Optiray-320, helical axial images of the chest were obtained utilizing the pulmonary embolus protocol. Maximal intensity projections and sagittal and coronal reformats were viewed on an independent 3D workstation. IV contrast was administered without complication. Automated exposure control was utilized for the study. A dose lowering technique was utilized adhering to the principles of ALARA. CT DOSE: 312.48 mGy.cm FINDINGS: No pulmonary emboli are identified. There is no evidence for thoracic aortic dissection. The heart is mildly enlarged. There is extensive mitral annular calcification. No enlarged thoracic lymph nodes are present. No pneumothorax or pleural effusion is noted. Linear opacities reflect atelectasis. The central airways are patent. There are mild groundglass opacities with mosaic attenuation. Bony thorax is unremarkable. A 1.7 cm right adrenal nodule is unchanged. This reflects an adenoma. IMPRESSION: 1. No pulmonary emboli identified. 2. Groundglass opacities with mosaic attenuation within the lungs which may reflect air trapping. 3. Mild cardiomegaly. Electronically signed by: Tank Godinez M.D. 01/17/2019 11:11 PM ECG Data Attestation: I personally reviewed and interpreted this ECG as follows: Indication: chest pain Rate (beats per minute): 65 Rhythm: sinus rhythm Findings: + other (normal axis; normal intervals); no acute ischemic change and no ectopy Blood Pressure Blood Pressure Findings: Normal blood pressure MDM Narrative Patient with concerning story and presentation here involving chest pain and concern for cardiac or vascular etiology. Labs and imaging reassuring, troponin negative, no evidence of dissection or PE, no evidence of occult infectious etiology or acute CHF. Given multiple risk factors and advanced age, case was discussed with hospitalist for additional inpatient evaluation and management and likely cardiology consultation on testing. No evidence of trauma, no recent change in activity. Patient's creatinine stable. No acute EKG changes noted. Patient was markedly improved here after aspirin and nitro administered by EMS, was given additional medication here to help keep her pain-free. Patient did asked to ambulate to the bathroom, and upon this exertion was noted to have a recurrence of her chest pain. Patient otherwise hemodynamically stable throughout. Impression & Plan Chest pain, Dyspnea, Rash/skin eruption Discharge Plan Visit Data *Final* Discharge Date/Time: 01/18/19 01:26 Chief Complaint: Chest Pain Stated Complaint: CHEST PAIN ED Provider: Paula Gil Discharge Problem: Chest pain, Dyspnea, Rash/skin eruption Patient Disposition: Admitted As Inpatient Condition: Good Discharge Instructions Interventions: ED Discharge Assessment Last Done: 01/18/19 01:26 The scribe's documentation has been prepared under my direction and personally reviewed by me in its entirety. I confirm that the note above accurately reflects all work, treatment, procedures, and medical decision making performed by me.
== END 2019-01-18 16:45 | disposition home or self-care (01) ==
LOC: ED 20:25 → 2W 20:25

== ENCOUNTER 2019-10-22 10:27 | Inpatient (IN) ==
[2019-10-22 10:58] LABS: Hematocrit (blood only) 34.1 % (37-47); Hemoglobin 11.3 g/dL (12.0-16.0); Mean Corpuscular Hemoglobin 31.7 pg (25-34); Mean Corpuscular Hgb Conc 33.1 g/dL (32-36); Mean Corpuscular Volume 95.5 fL (80-100); Mean Platelet Volume 10.7 fL (7.4-10.4); Platelet Count 414 K/uL (130-400); RDW Standard Deviation 52.5 fL (36.4-46.3); Red Blood Count 3.57 M/uL (4.2-5.4); White Blood Count 20.02 K/uL (4.8-10.8)
[2019-10-22 11:16] LABS: Basophils # (auto) 0.04 K/uL (0-0.2); Basophils % (auto) 0.2 %; Eosinophils # (auto) 0.32 K/uL (0-0.5); Eosinophils % (auto) 1.6 %; Immature Granulocytes # (auto) 0.09 K/uL (0.00-0.02); Immature Granulocytes % (auto) 0.4 %; Lymphocytes # (auto) 1.32 K/uL (1.2-3.4); Lymphocytes % (auto) 6.6 %; Monocytes # (auto) 1.83 K/uL (0.11-0.59); Monocytes % (auto) 9.1 %; Neutrophils # (auto) 16.42 K/uL (1.4-6.5); Neutrophils % (auto) 82.1 %
[2019-10-22] MEDS ORDERED: LEVOFLOXACIN/D5W 750 MG/150 ML BAG IV STA (11:20)
[2019-10-22] MEDS ORDERED: PIPERACILL/TAZOBAC CONSULT ACTIVE PRN (11:20)
[2019-10-22] MEDS ORDERED: DAPTOmycin 325 MG in SYRINGE 0 ML IV ONE (11:20)
[2019-10-22] MEDS ORDERED: PIPERACILLIN/TAZOBACTAM 4.5 GM/120 ML BAG IV ONE (11:20)
[2019-10-22] MEDS ORDERED: DAPTOMYCIN CONSULT ACTIVE PRN (11:20)
--- NOTE | 2019-10-22 11:20 | XRay Report ---
XR chest 1V portable CLINICAL HISTORY: Altered mental status. COMPARISON STUDY: Chest radiograph September 20, 2019. PET/CT August 02, 2019. FINDINGS: A left subclavian [id number] is in place. Mild interstitial pulmonary edema is noted. Ri ght perihilar and right basilar opacity is noted with a small right pleural effusion. There is mild l eft basilar opacity. There is no pneumothorax. Cardiomediastinal silhouette is stable. IMPRESSION: 1. Mild interstitial pulmonary edema. 2. Bibasilar opacities which may reflect pneumonia or atelectasis. Small right pleural effusion. Radi ographic follow up is recommended. ACT 112: Negative or not required by law. Electronically signed by: Tank Godinez M.D. 10/22/2019 11:19 AM
[2019-10-22] MEDS ORDERED: ONDANSETRON INJ 2 MG/ML 2 ML VIAL IV STA (11:25)
[2019-10-22 11:29] LABS: Albumin Globulin Ratio 0.5 (0.9-2); Albumin Level 1.8 gm/dl (3.4-5.0); BUN Creatinine Ratio 25.3 (10-20); Bilirubin,Total 0.4 mg/dl (0.2-1); Calcium 8.5 mg/dl (8.5-10.1); Creatinine Clr Calc Pharmacy 38.5 ml/min; Est GFR (African American) 52.6; Est GFR (Non-African American) 45.4; Globulin 3.9 gm/dl (2.5-4.0); Potassium 4.4 mmol/L (3.5-5.1); Total Protein 5.7 gm/dl (6.4-8.2)
[2019-10-22] MEDS: HYDROmorphone INJ 0.5 MG/0.5 ML SYR IV PRN ×2 (11:37→14:02)
[2019-10-22 11:38] LABS: INR 1.1 (0.9-1.1); Partial Thromboplastin Ratio 0.9; Prothrombin Time 11.4 Seconds (9.0-12.0)
[2019-10-22 11:45] LABS: Magnesium 2.5 mg/dl (1.8-2.4); Troponin I 0.015 ng/ml (0-0.045)
[2019-10-22] MEDS ORDERED: OPTIRAY 320 125ml IV PRN (12:00)
--- NOTE | 2019-10-22 12:11 | CT Scan Report ---
CT angio chest PE protocol CT DOSE: 289.15 mGy.cm HISTORY: Chest pain. Dyspnea. PE TECHNIQUE: Multiaxial CT images of the chest were performed following the intravenous administration of contrast to evaluate the pulmonary arteries. Maximal intensity projection images were also obtaine d. A dose lowering technique was utilized adhering to the principles of ALARA. COMPARISON STUDY: None. FINDINGS: Mild atherosclerotic change thoracic aorta. No evidence for aneurysm or dissection. Pulmonary vasculature enhances appropriately. There are no major filling defects. There are bilateral pleural effusions. There are findings of diffuse bibasilar infiltrative changes. Less prominent infiltrative changes is seen overlying the pulmonary apices. IMPRESSION: 1. Study is negative for pulmonary embolus. 2. Bilateral pleural effusions with bibasilar infiltrative change. 3. Less prominent infiltrative change overlying the pulmonary apices. 4. A component of congestive failure/pulmonary edema is not entirely excluded. ACT 112: Negative or not required by law. The above report was generated using voice recognition software. It may contain grammatical, syntax or spelling errors. Electronically signed by: Pankaj Al M.D. 10/22/2019 12:09 PM
[2019-10-22] MEDS ORDERED: ALBUT/IPRATROP 3MG/0.5MG NEB 3 ML VIAL NEB ONE (12:15)
[2019-10-22 12:26] LABS: Influenza A virus by PCR Neg for Influ A (Neg); Influenza B virus by PCR Neg for Influ B (Neg)
--- NOTE | 2019-10-22 13:01 | History & Physical Report ---
Date of Service October 22, 2019 Assessment & Plan (1) Cellulitis of right lower extremity: Severe purulent cellulitis of right lower extremity with possible developing sepsis. Blood cultures are pending, will obtain superficial wound culture. Continue broad-spectrum antibiotics with Dapto and Zosyn for now. Infectious disease was consulted. Wound care was consulted. We will continue MS Contin and as needed oxycodone cautiously secondary to her apparent increased somnolence overnight and this morning possibly secondary to oversedation versus medication interactions between benzodiazepines and opiates. Transfer to telemetry floor for close monitoring. Of note, she was given Lasix in the ER after CT scan of the chest revealed bilateral pleural effusions with a questionable developing pulmonary edema in the setting of hypoxia. Will monitor the effects of this and place a Rodriguez to gauge accurate output. If she declines clinically may consider fluids later today. (2) Hypoxia: Likely secondary to oversedation from narcotics and benzodiazepines. Patient is not hypoxic at baseline. As she awakens more in the ER today, she is oxygenating very well on 2 L/min via nasal cannula. Continue oxygen supplementation. CT PE of the chest was negative for pulmonary embolus. Additionally, the patient reports no history of CHF symptoms. She does have bilateral pleural effusions on chest CT which was not present last year. Lasix 40 mg IV was given in the ER, will place Rodriguez and monitor output and clinical response to this. (3) Pleural effusion: Lasix given in ER. Patient doesn't appear to be fluid overloaded or in heart failure acutely at this time. Monitor output of urine and clinical response to treatment. 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 Continue oncologic care as outpatient. (5) Chronic pain: Chronically on gabapentin 3 times a day as well as MS Contin 2 times a day. Recent increase in MS Contin to 3 times a day, however, she has not started taking this yet. Oxycodone is used 4 times a day at 5 mg intermediate release tablet. New Ativan given first last night was started for anxiety. Will hold this now. (6) HTN (hypertension): With borderline hypotension will hold home lisinopril and amlodipine. (7) DVT prophylaxis: Lovenox Full code as discussed with patient and her daughter Care plan discussed with her daughter by phone [employer]po[facility] Tele Hiwot Polo DO [facility] Hospitalist History of Present Illness Chief Complaint: Severe leg pain and somnolence Primary Care Provider: Marcy Villanueva DO 79-year-old female with a history of squamous cell carcinoma to her right lower extremity with recurrence. She has a history of squamous cell carcinoma of the right lower extremity diagnosed February 2019 status post radiation treatment. She had recurrent disease on the right thigh return and is now undergoing immunotherapy with Cemiplimab, started in August 2019. She is intermittently somnolent today and was started on Ativan last night with the first dose and only dose being given last night by her daughter. She is otherwise on long- acting MS Contin and takes it at 7A and 7P. She was increased to take it now 3 times a day at 07 100, 1500, 2300 but has not started that regimen yet. She also takes oxycodone 4 times a day as needed and has needed it 4 times a day recently. She no longer takes tramadol since the long-acting morphine was started. Today she reports intense pain in her right leg. She reports swelling in the right leg. She denies any shortness of breath, cough, fevers, chills recently and this was corroborated by her daughter who lives with her. She was found to be hypoxic on the scene with a 68% room air oxygen saturation per EMS. She remains on 2 LPM via nasal cannula and has recently received a neb treatment in the ER. She is not tachypneic and lungs are clear outside of some crackles at the bases bilaterally. She has a known history of interstitial lung disease and has not been using her inhaler or nebulizer treatments at home in fact, the daughter states they have been out of that medication and have not needed it. The patient is seen by Bobbi at home regularly who last saw her on 10/19/2019. Her right lower extremity wounds are managed by a home health agency who reportedly last changed her bandage on 10/20/2019. She has multiple chronic- appearing, crusted wounds with an open area over her right patella and multiple open ulcerations with purulent drainage on her distal right lower extremity. Allergies Allergy/AdvReac Type Severity Reaction Status Date / Time adhesive Allergy Intermediate IRRITATES Verified 10/22/19 11:25 SKIN-WITH TAPE benzoin Allergy Intermediate SKIN Verified 10/22/19 11:25 IRRITATION-RASH honey Allergy Intermediate NAUSEA/VOMI Verified 10/22/19 11:25 TING hydrogen peroxide Allergy Intermediate BURNING Verified 10/22/19 11:25 ITCH SKIN ceftriaxone AdvReac Unknown burning at Verified 10/22/19 11:25 site of injection Home Medications Home Medications Medication Instructions Recorded Confirmed Type acetaminophen [Tylenol] 650 mg PO Q6H PRN 01/17/19 10/22/19 History albuterol sulfate [ProAir HFA] 2 puff INHALATION QID PRN 01/17/19 10/22/19 History amlodipine [Norvasc] 5 mg PO QAM 01/17/19 10/22/19 History atorvastatin 80 mg PO HS 01/17/19 10/22/19 History clopidogrel 75 mg PO QAM 01/17/19 10/22/19 History folic acid 0.8 mg PO QAM 01/17/19 10/22/19 History gabapentin 600 mg PO TID 01/17/19 10/22/19 History lisinopril 5 mg PO QAM 01/17/19 10/22/19 History metoprolol succinate 25 mg PO QAM 01/17/19 10/22/19 History omeprazole 20 mg PO DAILY 01/17/19 10/22/19 History aspirin [Kaibab Aspirin] 81 mg PO QAM 10/07/19 10/22/19 History ypfezemm-fjr-kdwy-FA-lutein 2 tab PO BID 10/07/19 10/22/19 History [Centrum Silver Women] silver sulfadiazine 1 applic TOPICAL DIRECTED 10/07/19 10/22/19 History cemiplimab-rwlc 350 mg IV Q21D 10/22/19 10/22/19 History lorazepam 0.5 mg PO Q4H 10/22/19 10/22/19 History morphine 15 mg PO BID 10/22/19 10/22/19 History oxycodone [Roxicodone] 5 mg PO QID PRN 10/22/19 10/22/19 History Past Med/Surg History Medical History Atopy BCC (basal cell carcinoma), lip Bronchitis HX-YRS AGO-INHALER PRN Complex regional pain syndrome Dyslipidemia Gastro-esophageal reflux Hypertension Interstitial lung disease Irritable bowel syndrome Peripheral vascular disease Stroke (Resolved) 2 YRS AGO-LEFT ARM WAS [id number] PLAVIX SINCE Surgical History H/O excision of mass RIGHT LEG History of cataract surgery R/L History of colonoscopy Hx of appendectomy S/P femoral-popliteal bypass surgery Family History Mother , age 91 surgical complications No problems noted. Father , age 77 CVA No problems noted. Brother Alzheimer disease Sister No problems noted. Sister No problems noted. Sister No problems noted. Sister No problems noted. Sister No problems noted. Brother Diabetes Brother No problems noted. Brother No problems noted. Brother No problems noted. Brother No problems noted. Brother No problems noted. 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 Required: No Beliefs That Will Affect Care: None marital status: / Current Living Situation: Family Current Living Situation Comment: retired [employer] current occupation: retired Other Information That Helps Us Care for You: No Feels Safe at Home: Yes Safety Concerns: Feels Safe At This Time Smoking Status: Current some day smoker Tobacco Type: cigarettes ; Age Started Using Tobacco: 20 ; packs per day: 0.5 ; Cigarettes Per Day: 3-5 ; Do You Dip or Chew Tobacco: No ; Second Hand Exposure: No ; Tobacco Cessation Education Requested by Patient: No Hx Alcohol Use: No Hx Substance Use: No Childhood Exposure to Second-Hand Smoke: Yes caffeine: Yes (2 cups per day coffee ) during the past year weight has: remained stable Dental Care, Regularly: No Physical Activity Frequency: 3-4 Times per Week Seatbelt Use: always Sunscreen Use: No Review of Systems Review of Systems: All systems reviewed & are unremarkable except as noted in HPI & below Physical Exam Physical Exam: CONSTITUTIONAL: WNWD, vitals as above, generally well- appearing but intermittently somnolent EYES: pupils are equal and round bilaterally, normal conjunctivae, no scleral icterus ENT: nebulizer treatment ongoing but mucous membranes appear moist. NECK: trachea midline, no lymphadenopathy, normal thyroid RESPIRATORY: bilateral crackles at bases, clear to auscultation bilaterally, no crackles, rales or wheezes, normal respiratory effort CARDIOVASCULAR: regular rate and rhythm, S1 and 2 heard without murmurs, gallops or rubs, no JVD, no peripheral edema, no carotid bruits CHEST: inspection of chest was normal (+pacemaker, +port) GASTROINTESTINAL: normal bowel sounds, soft, nontender, no hepatomegaly, no guarding MUSCULOSKELETAL: strength 5/5 throughout, head is normocephalic and atraumatic, neck supple, normal palpation of chest wall without tenderness SKIN: warm and dry, no rashes NEUROLOGIC: patellar DTRs 2+ bilat. PERRL, EOMI, no facial palsy, no dysarth tish. Touch, pain and proprioception normal. CN 2-12 grossly intact, no sensory deficit, normal cognition, normal speech, no tremor PSYCHIATRIC: alert cooperative and oriented to person, place and time. Euthymic mood, makes good eye contact, language grossly intact, recent and remote memory grossly intact. LYMPHATIC: no LAD Results & Data Vital Signs (Past 12 Hours) Vital Signs Temp Pulse Pulse Resp BP BP Pulse Ox 10/22/19 12:11 101 H 18 116/61 98 10/22/19 11:46 97 10/22/19 11:39 95 H 16 141/62 H 97 10/22/19 10:36 37.6 C H 95 H 16 124/50 L 86 L Laboratory Results Short CBC 10/22/19 Range/Units 10:40 WBC 20.02 H (4.8-10.8) K/uL Hgb 11.3 L (12.0-16.0) g/dL Hct 34.1 L (37-47) % Plt Count 414 H (130-400) K/uL BMP 10/22/19 10:40 Sodium 137 Potassium 4.4 Chloride 105 Carbon Dioxide 27 BUN 29 H Creatinine 1.16 Glucose 107 H Calcium 8.5 Cardiac Enzymes 10/22/19 Range/Units 10:40 Total Creatine Kinase 95 (26-192) U/L CK-MB (CK-2) 2.0 (0.5-3.6) ng/ml Troponin I 0.015 (0-0.045) ng/ml Liver Function 03/20/20 Range/Units 10:40 Total Bilirubin 0.4 (0.2-1) mg/dl AST 16 (15-37) U/L ALT 24 (12-78) U/L Alkaline Phosphatase 62 (45-117) U/L Albumin 1.8 L (3.4-5.0) gm/dl Diagnostic Findings CT angio chest PE protocol FINDINGS: Mild atherosclerotic change thoracic aorta. No evidence for aneurysm or dissection. Pulmonary vasculature enhances appropriately. There are no major filling defects. There are bilateral pleural effusions. There are findings of diffuse bibasilar infiltrative changes. Less prominent infiltrative changes is seen overlying the pulmonary apices. IMPRESSION: 1. Study is negative for pulmonary embolus. 2. Bilateral pleural effusions with bibasilar infiltrative change. 3. Less prominent infiltrative change overlying the pulmonary apices. 4. A component of congestive failure/pulmonary edema is not entirely excluded. XR chest 1V portable FINDINGS: A left subclavian Yuaiib-m-Vrgh is in place. Mild interstitial pulmonary edema is noted. Right perihilar and right basilar opacity is noted with a small right pleural effusion. There is mild left basilar opacity. There is no pneumothorax. Cardiomediastinal silhouette is stable. IMPRESSION: 1. Mild interstitial pulmonary edema. 2. Bibasilar opacities which may reflect pneumonia or atelectasis. Small right pleural effusion. Radiographic follow up is recommended. Medications Administered Zosyn, Levaquin, Zofan, Dilaudid in ER. Code Status & VTE Plan Code Status full VTE Prophylaxis Plan VTE Prophylaxis will be ordered: Yes
--- NOTE | 2019-10-22 13:31 | Emergency Department Note ---
History of Present Illness General Chief complaint: Leg Injury/Pain Time Seen by Provider: 10/22/19 11:19 Source: patient, EMS, RN notes reviewed and old records reviewed Mode of arrival: EMS Limitations: no limitations History of Present Illness Provider complaint: leg pain, cellulitis Onset (ago): day(s) 1 Location: lower extremity Radiation: non-radiation Severity: moderate Pain Consistency: + constant Maximum Pain Intensity: 6 Current Pain Intensity: 6 Quality: + burning Relieved By: + immobilization Exacerbated By: + movement Associated symptoms: + shortness of breath Treatments prior to arrival: other (Oxygen) This is a 79-year-old female who presents emergency department complaining of weakness. The patient lowered herself to the ground today because she felt weak. She is having increased pain to the right lower extremity. She is currently being treated for basal cell carcinoma to the right leg. Upon arrival to the emergency department the patient is hypoxic. She is not normally on oxygen at home however EMS placed her on 6 L. Patient denies any chest pain or abdominal pain. Home Medications Home Medications Medication Instructions Recorded Confirmed Type acetaminophen [Tylenol] 650 mg PO Q6H PRN 01/17/19 10/22/19 History albuterol sulfate [ProAir HFA] 2 puff INHALATION QID PRN 01/17/19 10/22/19 Hist ory amlodipine [Norvasc] 5 mg PO QAM 01/17/19 10/22/19 History atorvastatin 80 mg PO HS 01/17/19 10/22/19 History clopidogrel 75 mg PO QAM 01/17/19 10/22/19 History folic acid 0.8 mg PO QAM 01/17/19 10/22/19 History gabapentin 600 mg PO TID 01/17/19 10/22/19 History lisinopril 5 mg PO QAM 01/17/19 10/22/19 History metoprolol succinate 25 mg PO QAM 01/17/19 10/22/19 History omeprazole 20 mg PO DAILY 01/17/19 10/22/19 History tramadol 50 mg tablet 50 mg PO TID tab 06/21/19 10/22/19 History aspirin [Haines Aspirin] 81 mg PO QAM 10/07/19 10/22/19 History tpkrixex-hpu-qppa-FA-lutein 2 tab PO BID 10/07/19 10/22/19 History [Centrum Silver Women] oxycodone [Roxicodone] 5 mg PO Q8H PRN #9 tab 10/07/19 10/22/19 Rx silver sulfadiazine 1 applic TOPICAL DIRECTED 10/07/19 10/22/19 History lorazepam 0.5 mg PO Q4H 10/22/19 10/22/19 History morphine 15 mg PO BID 10/22/19 10/22/19 History Allergies Allergy/AdvReac Type Severity Reaction Status Date / Time adhesive Allergy Intermediate IRRITATES Verified 10/22/19 11:25 SKIN-WITH TAPE benzoin Allergy Intermediate SKIN Verified 10/22/19 11:25 IRRITATION-RASH honey Allergy Intermediate NAUSEA/VOMI Verified 10/22/19 11:25 TING hydrogen peroxide Allergy Intermediate BURNING Verified 10/22/19 11:25 ITCH SKIN ceftriaxone AdvReac Unknown burning at Verified 10/22/19 11:25 site of injection Past Med/Surg History Medical History Atopy BCC (basal cell carcinoma), lip Bronchitis HX-YRS AGO-INHALER PRN Complex regional pain syndrome Dyslipidemia Gastro-esophageal reflux Hypertension Interstitial lung disease Irritable bowel syndrome Peripheral vascular disease Stroke (Resolved) 2 YRS AGO-LEFT ARM WAS [id number] PLAVIX SINCE Surgical History H/O excision of mass RIGHT LEG History of cataract surgery R/L History of colonoscopy Hx of appendectomy S/P femoral-popliteal bypass surgery Family History Mother , age 91 surgical complications No problems noted. Father , age 77 CVA No problems noted. Brother Alzheimer disease Sister No problems noted. Sister No problems noted. Sister No problems noted. Sister No problems noted. Sister No problems noted. Brother Diabetes Brother No problems noted. Brother No problems noted. Brother No problems noted. Brother No problems noted. Brother No problems noted. Daughter Cancer ovarian cancer Social History Preferred Language: Salvadorean Communication Ability: Effective Visual Impairment: No Limitations Hearing Ability: Hard of Hearing Welfare Eligibility Interviewer Required: No Beliefs That Will Affect Care: None marital status: / Current Living Situation: Family Current Living Situation Comment: retired [employer] current occupation: retired Other Information That Helps Us Care for You: No Feels Safe at Home: Yes Safety Concerns: Feels Safe At This Time Smoking Status: Current some day smoker Tobacco Type: cigarettes ; Age Started Using Tobacco: 20 ; packs per day: 0.5 ; Cigarettes Per Day: 3-5 ; Do You Dip or Chew Tobacco: No ; Second Hand Exposure: No ; Tobacco Cessation Education Requested by Patient: No Hx Alcohol Use: No Hx Substance Use: No Childhood Exposure to Second-Hand Smoke: Yes caffeine: Yes (2 cups per day coffee ) during the past year weight has: remained stable Dental Care, Regularly: No Physical Activity Frequency: 3-4 Times per Week Seatbelt Use: always Sunscreen Use: No Review of Systems A total of 10 systems reviewed and were otherwise negative Physical Exam Vital Signs Vital Signs - 24 hr 10/22/19 10:36 10/22/19 11:39 10/22/19 11:46 Temperature 37.6 C H Temperature Source Oral Pulse Rate 95 H Pulse Rate [Apical] 95 H Pulse Rhythm Regular Respiratory Rate 16 16 Respiratory Effort / Characteristics Spontaneous Respiratory Pattern Regular Blood Pressure 124/50 L Blood Pressure [Left Arm] 141/62 H Blood Pressure Mean 74 Blood Pressure Mean [Left Arm] 88 Blood Pressure Position [Left Arm] Pulse Oximetry 86 L 97 97 Oxygen Delivery Method Room Air Nasal Cannula Oxygen Flow Rate 5 Sepsis Recent Fever Within 48 Hours Yes Sepsis New/Unexplained Change in Mental Status No Sepsis Action Taken by Nursing No Action Required 10/22/19 12:11 10/22/19 13:08 10/22/19 13:09 Temperature Temperature Source Pulse Rate Pulse Rate [Apical] 101 H 75 95 H Pulse Rhythm Respiratory Rate 18 20 16 Respiratory Effort / Characteristics Spontaneous Respiratory Pattern Blood Pressure Blood Pressure [Left Arm] 116/61 127/70 Blood Pressure Mean Blood Pressure Mean [Left Arm] 79 89 Blood Pressure Position [Left Arm] Lying Pulse Oximetry 98 96 Oxygen Delivery Method Nasal Cannula Nasal Cannula Oxygen Flow Rate 6 Sepsis Recent Fever Within 48 Hours Sepsis New/Unexplained Change in Mental Status Sepsis Action Taken by Nursing 10/22/19 13:38 Temperature Temperature Source Pulse Rate Pulse Rate [Apical] 115 H Pulse Rhythm Respiratory Rate 20 Respiratory Effort / Characteristics Respiratory Pattern Blood Pressure Blood Pressure [Left Arm] 121/59 L Blood Pressure Mean Blood Pressure Mean [Left Arm] 79 Blood Pressure Position [Left Arm] Pulse Oximetry Oxygen Delivery Method Oxygen Flow Rate Sepsis Recent Fever Within 48 Hours Sepsis New/Unexplained Change in Mental Status Sepsis Action Taken by Nursing GENERAL: Patient is a healthy-appearing well-nourished female HEAD: Normocephalic atraumatic EYES: Ocular movements intact pupils equal and react to light OROPHARYNX mucous membranes are moist no exudates present no erythema or edema present NECK: Supple no nuchal rigidity CHEST: Good equal expansion LUNGS: Clear and equal to auscultation CARDIAC: Normal S1 and S2 ABDOMEN: Soft nontender no guarding BACK: No CVA tenderness EXTREMITIES: RLE: malodorous, drainage present up and down leg NEURO: Patient is following commands is answering questions appropriately. Alert and oriented x3 Cranial Nerves 2-12 grossly intact Course Administered Medications Hydromorphone HCl (Dilaudid) 0.5 mg IV Q15M PRN PRN Reason: Pain Stop: 11/05/19 11:24 Last Admin: 10/22/19 14:02 Dose: 0.5 mg Documented by: [id number] Admin: 10/22/19 11:37 Dose: 0.5 mg Documented by: [id number] Ioversol (Optiray 320 125ml) 119 ml IV ONCE PRN PRN Reason: Interaction Checking Stop: 10/26/19 11:59 Last Admin: 10/22/19 12:00 Dose: 119 ml Documented by: [id number] Discontinued Medications Albuterol (Duoneb) 12 ml NEB ONE ONE Stop: 10/22/19 12:16 Last Admin: 10/22/19 13:04 Dose: 12 ml Documented by: [id number] Furosemide (Lasix) 40 mg IV NOW STA Stop: 10/22/19 13:33 Last Admin: 10/22/19 14:02 Dose: 40 mg Documented by: [id number] Piperacillin Sod/Tazobactam Sod (Zosyn) 4.5 gm in 120 mls @ 240 mls/hr IV NOW ONE Stop: 10/22/19 11:49 Last Infusion: 10/22/19 12:13 Dose: 0 mls/hr Documented by: [id number] Admin: 10/22/19 11:38 Dose: 240 mls/hr Documented by: [id number] Levofloxacin/Dextrose (Levaquin/D5w) 750 mg in 150 mls @ 100 mls/hr IV NOW STA Stop: 10/22/19 12:49 Last Infusion: 10/22/19 14:06 Dose: 0 mls/hr Documented by: [id number] Admin: 10/22/19 12:07 Dose: 100 mls/hr Documented by: [id number] Daptomycin 325 mg/ Syringe 6.5 mls @ 3.25 mls/min IV NOW ONE; Protocol Stop: 10/22/19 11:21 Last Admin: 10/22/19 13:23 Dose: 3.25 mls/min Documented by: [id number] Ondansetron HCl (Zofran) 4 mg IV NOW STA Stop: 10/22/19 11:26 Last Admin: 10/22/19 11:37 Dose: 4 mg Documented by: [id number] Critical Care Time I have personally spent greater than 30 minutes of critical care time in the di rect management of this patient. This includes bedside care, interpretation of diagnostic studies, and testing, discussion with consultants, patient, and family members, and other required patient management activities. This 30 minutes is in excess of all separately billable procedures. Medical Decision Making Differential Diagnosis Cellulitis, abscess, MRSA infection, DVT, necrotizing fasciitis, dermatitis, drug eruption, allergic reaction, as well as other pathologies. Medical Records Attestation: I reviewed the patient's medical records. Home Medications Current Medication List: was personally reviewed by me Laboratory Data Attestation: I reviewed the patient's lab results. Result diagrams: 10/22/19 10:40 10/22/19 10:40 Lab Results 10/22/19 10/22/19 10/22/19 Range/Units 10:40 10:40 10:40 WBC 20.02 H (4.8-10.8) K/uL RBC 3.57 L (4.2-5.4) M/uL Hgb 11.3 L (12.0-16.0) g/dL Hct 34.1 L (37-47) % MCV 95.5 (80-100) fL MCH 31.7 (25-34) pg MCHC 33.1 (32-36) g/dL RDW Std Deviation 52.5 H (36.4-46.3) fL RDW Coeff of Bay 15.0 H (11.5-14.5) % Plt Count 414 H (130-400) K/uL MPV 10.7 H (7.4-10.4) fL Immature Gran % (Auto) 0.4 % Neut % (Auto) 82.1 % Lymph % (Auto) 6.6 % [place] % (Auto) 9.1 % Eos % (Auto) 1.6 % Baso % (Auto) 0.2 % Immature Gran # (Auto) 0.09 H (0.00-0.02) K/uL Neut # (Auto) 16.42 H (1.4-6.5) K/uL Lymph # (Auto) 1.32 (1.2-3.4) K/uL [place] # (Auto) 1.83 H (0.11-0.59) K/uL Eos # (Auto) 0.32 (0-0.5) K/uL Baso # (Auto) 0.04 (0-0.2) K/uL PT (9.0-12.0) Seconds INR (0.9-1.1) APTT (21.0-31.0) Seconds PTT Ratio Sodium 137 (136-145) mmol/L Potassium 4.4 (3.5-5.1) mmol/L Chloride 105 (98-107) mmol/L Carbon Dioxide 27 (21-32) mmol/L Anion Gap 5.0 (3-11) BUN 29 H (7-18) mg/dl Creatinine 1.16 (0.6-1.2) mg/dl Est Cr Clr Drug Dosing 38.5 ml/min Est GFR ( Amer) 52.6 Est GFR (Non-Af Amer) 45.4 BUN/Creatinine Ratio 25.3 H (10-20) Glucose 107 H (70-99) mg/dl Lactate 1.9 (0.4-2.0) mmol/L Calcium 8.5 (8.5-10.1) mg/dl Magnesium (1.8-2.4) mg/dl Total Bilirubin 0.4 (0.2-1) mg/dl AST 16 (15-37) U/L ALT 24 (12-78) U/L Alkaline Phosphatase 62 (45-117) U/L Total Creatine Kinase (26-192) U/L CK-MB (CK-2) (0.5-3.6) ng/ml CK/CKMB % Calc (0-3.0) Troponin I (0-0.045) ng/ml NT-Pro-B Natriuret Pep (0-1800) pg/ml Total Protein 5.7 L (6.4-8.2) gm/dl Albumin 1.8 L (3.4-5.0) gm/dl Globulin 3.9 (2.5-4.0) gm/dl Albumin/Globulin Ratio 0.5 L (0.9-2) Influenza Type A (PCR) (Neg) Influenza Type B (PCR) (Neg) 10/22/19 10/22/19 10/22/19 Range/Units 10:40 10:40 11:40 WBC (4.8-10.8) K/uL RBC (4.2-5.4) M/uL Hgb (12.0-16.0) g/dL Hct (37-47) % MCV (80-100) fL MCH (25-34) pg MCHC (32-36) g/dL RDW Std Deviation (36.4-46.3) fL RDW Coeff of [place] (11.5-14.5) % Plt Count (130-400) K/uL MPV (7.4-10.4) fL Immature Gran % (Auto) % Neut % (Auto) % Lymph % (Auto) % [place] % (Auto) % Eos % (Auto) % Baso % (Auto) % Immature Gran # (Auto) (0.00-0.02) K/uL Neut # (Auto) (1.4-6.5) K/uL Lymph # (Auto) (1.2-3.4) K/uL [place] # (Auto) (0.11-0.59) K/uL Eos # (Auto) (0-0.5) K/uL Baso # (Auto) (0-0.2) K/uL PT 11.4 (9.0-12.0) Seconds INR 1.1 (0.9-1.1) APTT 26.0 (21.0-31.0) Seconds PTT Ratio 0.9 Sodium (136-145) mmol/L Potassium (3.5-5.1) mmol/L Chloride (98-107) mmol/L Carbon Dioxide (21-32) mmol/L Anion Gap (3-11) BUN (7-18) mg/dl Creatinine (0.6-1.2) mg/dl Est Cr Clr Drug Dosing ml/min Est GFR ( Amer) Est GFR (Non-Af Amer) BUN/Creatinine Ratio (10-20) Glucose (70-99) mg/dl Lactate (0.4-2.0) mmol/L Calcium (8.5-10.1) mg/dl Magnesium 2.5 H (1.8-2.4) mg/dl Total Bilirubin (0.2-1) mg/dl AST (15-37) U/L ALT (12-78) U/L Alkaline Phosphatase (45-117) U/L Total Creatine Kinase 95 (26-192) U/L CK-MB (CK-2) 2.0 (0.5-3.6) ng/ml CK/CKMB % Calc 2.1 (0-3.0) Troponin I 0.015 (0-0.045) ng/ml NT-Pro-B Natriuret Pep 2352 H (0-1800) pg/ml Total Protein (6.4-8.2) gm/dl Albumin (3.4-5.0) gm/dl Globulin (2.5-4.0) gm/dl Albumin/Globulin Ratio (0.9-2) Influenza Type A (PCR) Neg for Influ A (Neg) Influenza Type B (PCR) Neg for Influ B (Neg) Imaging Data Radiologist's Impression: Patient: LOS CALHOUN Date: 10/22/19 MR#: [id number]: [address] [facility] Acct ID:[id number]: Date: [address] [place] [address] Zip: [place] [address] Age: 79Location: ED Sex: F Room/Bed: Att Phy:Diagnosis: Nidhi Phy: Marcy Villanueva DOService Date: 10/22/19 Fam Phy:Interpreting Phy: Tank Godinez MD Admit Phy: Ordering Phy: Lennox Joe MD cc: ~ XR chest 1V portable CLINICAL HISTORY: Altered mental status. COMPARISON STUDY: Chest radiograph September 20, 2019. PET/CT August 02, 2019. FINDINGS: A left subclavian Kjvbsp-e-Oopj is in place. Mild interstitial pulmonary edema is noted. Right perihilar and right basilar opacity is noted with a small right pleural effusion. There is mild left basilar opacity. There is no pneumothorax. Cardiomediastinal silhouette is stable. IMPRESSION: 1. Mild interstitial pulmonary edema. 2. Bibasilar opacities which may reflect pneumonia or atelectasis. Small right pleural effusion. Radiographic follow up is recommended. ACT 112: Negative or not required by law. Electronically signed by: Tank Godinez M.D. 10/22/2019 11:19 AM Dictated: 10/22/19 1115 Transcribed: 10/22/19 1115 [place], [place] [phone] CT Scan Report Patient: LOS CALHOUN Date: 10/22/19 MR#: [id number]: [address] Acct ID:[id number]: [facility] Zip[facility] [place] [address] Age: 79Location: ED Sex: F Room/Bed: Att Phy:Diagnosis: Nidhi Phy: Marcy Villanueva DOService Date: 10/22/19 Fam Phy:Interpreting Phy: Pankaj Al MD Admit Phy: Ordering Phy: Lennox Joe MD cc: ~ CT angio chest PE protocol CT DOSE: 289.15 mGy.cm HISTORY: Chest pain. Dyspnea. PE TECHNIQUE: Multiaxial CT images of the chest were performed following the intravenous administration of contrast to evaluate the pulmonary arteries. Maximal intensity projection images were also obtained. A dose lowering technique was utilized adhering to the principles of ALARA. COMPARISON STUDY: None. FINDINGS: Mild atherosclerotic change thoracic aorta. No evidence for aneurysm or dissection. Pulmonary vasculature enhances appropriately. There are no major filling defects. There are bilateral pleural effusions. There are findings of diffuse bibasilar infiltrative changes. Less prominent infiltrative changes is seen overlying the pulmonary apices. IMPRESSION: 1. Study is negative for pulmonary embolus. 2. Bilateral pleural effusions with bibasilar infiltrative change. 3. Less prominent infiltrative change overlying the pulmonary apices. 4. A component of congestive failure/pulmonary edema is not entirely excluded. ACT 112: Negative or not required by law. The above report was generated using voice recognition software. It may contain grammatical, syntax or spelling errors. Electronically signed by: Pankaj Al M.D. 10/22/2019 12:09 PM Dictated: 10/22/19 1206 Transcribed: 10/22/19 120 Blood Pressure Blood Pressure Findings: Normal blood pressure MDM Narrative This is a 79-year-old female who presents emergency department complaining of right lower extremity pain. The patient is hypoxic and for this reason she was sent for CAT scan of the chest which does not show any acute process. She does have an elevation in her white blood cell count. She was started on Zosyn and Levaquin as well as daptomycin. I did discuss the case with the hospitalist service who did agree to admit the patient. Patient is in agreement with the treatment plan. Impression & Plan Squamous cell carcinoma of skin of right lower extremity, Cellulitis, Hypoxia Discharge Plan Visit Data Chief Complaint: Leg Injury/Pain ED Provider: Lennox Joe Discharge Problem: Squamous cell carcinoma of skin of right lower extremity, Cellulitis, Hypoxia Discharge Instructions Interventions: ED Discharge Assessment Last Done: 10/22/19 14:08 Forms Stand Alone Forms: My [facility] [place] [employer] Prescriptions Prescriptions: No Action tramadol 50 mg tablet 50 mg PO TID RF: 0 aspirin [Haines Aspirin] 81 mg Tablet,Delayed Release (Dr/Ec) 81 mg PO QAM RF: 0 Centrum Silver Women 8 mg iron-400 mcg-300 mcg Tablet 2 tab PO BID RF: 0 oxycodone [Roxicodone] 5 mg tablet 5 mg PO Q8H PRN (Reason: pain) Qty: 9 RF: 0 silver sulfadiazine 1 % cream 1 applic TOPICAL DIRECTED RF: 0 lorazepam 0.5 mg tablet 0.5 mg PO Q4H RF: 0 morphine 15 mg tablet extended release 15 mg PO BID RF: 0 atorvastatin 80 mg Tablet 80 mg PO HS RF: 0 acetaminophen [Tylenol] 325 mg Tablet 650 mg PO Q6H PRN (Reason: Pain) RF: 0 gabapentin 600 mg Tablet 600 mg PO TID RF: 0 clopidogrel 75 mg Tablet 75 mg PO QAM RF: 0 amlodipine [Norvasc] 5 mg Tablet 5 mg PO QAM RF: 0 lisinopril 5 mg Tablet 5 mg PO QAM RF: 0 metoprolol succinate 25 mg Tablet Extended Release 24 Hr 25 mg PO QAM RF: 0 albuterol sulfate [ProAir HFA] 90 mcg/actuation Hfa Aerosol Inhaler 2 puff INHALATION QID PRN (Reason: Shortness Of Breath Or Wheezing) RF: 0 folic acid 0.8 mg Capsule 0.8 mg PO QAM RF: 0 omeprazole 20 mg Tablet,Delayed Release (Dr/Ec) 20 mg PO DAILY RF: 0 Referrals Referrals: Marcy Villanueva DO [Primary Care Provider] - Discharge Problem: Cellulitis Qualifiers: Site of cellulitis: extremity Site of cellulitis of extremity: lower extremity Laterality: right Qualified Code(s): L03.115 - Cellulitis of right lower limb
[2019-10-22] MEDS ORDERED: FUROSEMIDE 40 MG/4 ML VIAL IV STA (13:32)
[2019-10-22] MEDS ORDERED: CONSULT PHARMACY STA (14:48)
[2019-10-22] MEDS ORDERED: ACETAMINOPHEN 325 MG TAB PO PRN (14:48)
[2019-10-22] MEDS ORDERED: ALBUTEROL HFA 8 GM INHALER INH PRN (15:04)
--- NOTE | 2019-10-22 15:32 | Ultrasound Report ---
RIGHT LOWER EXTREMITY VENOUS DOPPLER HISTORY: Right leg swelling. COMPARISON STUDY: None. FINDINGS: There is normal compressibility, flow, and augmentation within the right lower extremity de ep venous system. IMPRESSION: No DVT within the right lower extremity ACT 112: Negative or not required by law. Electronically signed by: Checo Castillo M.D. 10/22/2019 3:31 PM
[2019-10-22] MEDS: MoRPHine SULFATE 2 MG/ML CARP IV PRN ×3 (15:34→23:47)
[2019-10-22] MEDS: PIPERACILLIN/TAZOBACTAM 3.375 GM in DEXTROSE 5% 100 ML IV SCH ×2 (16:12→23:43)
[2019-10-22 16:59] LABS: Appearance Urine Clear (Clear); Bilirubin Urine Negative (Negative); Blood Urine Negative (Negative); Color Urine Yellow; Glucose Urine UA Negative (Negative); Ketones Urine Negative (Negative); Leukocyte Esterase Urine Negative (Negative); Nitrite Urine Negative (Negative); Protein Urine Negative (Negative); Specific Gravity Urine 1.019 (1.000-1.030); Urobilinogen Urine Negative (Negative)
--- NOTE | 2019-10-22 18:13 | Electrocardiogram Report ---
Test Reason : Blood Pressure : / mmHG Vent. Rate : 093 BPM Atrial Rate : 093 BPM P-R Int : 132 ms QRS Dur : 074 ms QT Int : 348 ms P-R-T Axes : 070 057 055 degrees QTc Int : 432 ms Normal sinus rhythm Normal ECG When compared with ECG of 17-JAN-2019 20:29, Questionable change in QRS axis Confirmed by Herbert Hazel ([id number]) on 10/22/2019 6:13:03 PM Referred By: SELF Confirmed By:Herbert Hazel
[2019-10-22] MEDS: MoRPHine SULFATE CR 15 MG TABCR PO SCH (19:25)
[2019-10-22] MEDS: GABAPENTIN 600 MG TAB PO SCH (20:10)
[2019-10-22] MEDS: ENOXAPARIN INJ 40 MG/0.4 ML SYR SQ SCH ×2 (20:10→20:15)
[2019-10-22] MEDS: OXYCODONE HCL IR 5 MG TAB (IMMEDIATE RELEASE) PO PRN (22:03)
[2019-10-23] MEDS: MoRPHine SULFATE CR 15 MG TABCR PO SCH ×2 (06:34→18:35)
[2019-10-23] MEDS ORDERED: KETOROLAC TROMETHAMINE 15 MG/ML VIAL IV ONE (06:52)
[2019-10-23 07:38] LABS: Hematocrit (blood only) 33.4 % (37-47); Hemoglobin 10.9 g/dL (12.0-16.0); Mean Corpuscular Hemoglobin 31.1 pg (25-34); Mean Corpuscular Hgb Conc 32.6 g/dL (32-36); Mean Corpuscular Volume 95.4 fL (80-100); Mean Platelet Volume 10.7 fL (7.4-10.4); Platelet Count 392 K/uL (130-400); RDW Coefficient of Variation 15.1 % (11.5-14.5); RDW Standard Deviation 52.5 fL (36.4-46.3); White Blood Count 18.21 K/uL (4.8-10.8)
--- NOTE | 2019-10-23 07:39 | XRay Report ---
XR foot RT min 3V routine CLINICAL HISTORY: R foot pain COMPARISON STUDY: None. FINDINGS: The bones are osteopenic. Diffuse soft tissue swelling within the ankle and foot. There jeaneth ears to be nondisplaced fracture at the base of the second metatarsal without significant displacemen t. This is concerning for a Lisfranc fracture/dislocation. Small plantar and posterior calcaneal spur s are noted. There is a bimalleolar ankle fracture. The distal fibular fracture demonstrates up to 3 mm of lateral displacement. The medial malleolus fracture is not significantly displaced. IMPRESSION: 1. There appears to be nondisplaced fracture at the base of the second metatarsal without significant displacement. This is concerning for a Lisfranc fracture/dislocation. 2. Slightly displaced bimalleolar ankle fracture. ACT 112: Negative or not required by law. Electronically signed by: Checo Castillo M.D. 10/23/2019 7:38 AM
[2019-10-23] MEDS: FOLIC ACID 400 MCG TAB PO SCH (07:58)
[2019-10-23] MEDS: GABAPENTIN 600 MG TAB PO SCH ×4 (07:58→19:45)
[2019-10-23] MEDS: METOPROLOL SUCC 25MG EXT REL TAB PO SCH (07:59)
[2019-10-23] MEDS: PANTOprazole 40 MG TAB PO SCH (07:59)
[2019-10-23] MEDS: ASPIRIN 81 MG ECTAB PO SCH (07:59)
[2019-10-23 08:00] LABS: Basophils # (auto) 0.04 K/uL (0-0.2); Basophils % (auto) 0.2 %; Eosinophils # (auto) 0.17 K/uL (0-0.5); Eosinophils % (auto) 0.9 %; Immature Granulocytes # (auto) 0.05 K/uL (0.00-0.02); Immature Granulocytes % (auto) 0.3 %; Lymphocytes # (auto) 1.41 K/uL (1.2-3.4); Lymphocytes % (auto) 7.7 %; Monocytes # (auto) 1.68 K/uL (0.11-0.59); Monocytes % (auto) 9.2 %; Neutrophils # (auto) 14.86 K/uL (1.4-6.5); Neutrophils % (auto) 81.7 %
[2019-10-23] MEDS: PIPERACILLIN/TAZOBACTAM 3.375 GM in DEXTROSE 5% 100 ML IV SCH ×2 (08:02→16:02)
[2019-10-23 08:10] LABS: BUN Creatinine Ratio 23.6 (10-20); Calcium 8.4 mg/dl (8.5-10.1); Creatinine Clr Calc Pharmacy 48.3 ml/min; Est GFR (African American) 67.8; Est GFR (Non-African American) 58.5; Potassium 3.8 mmol/L (3.5-5.1)
[2019-10-23] MEDS: OXYCODONE HCL IR 5 MG TAB (IMMEDIATE RELEASE) PO PRN ×3 (08:15→19:57)
[2019-10-23] MEDS: MoRPHine SULFATE 2 MG/ML CARP IV PRN ×2 (09:28→19:40)
--- NOTE | 2019-10-23 09:47 | Hospitalist Progress Note ---
Date of Service October 23, 2019 Assessment & Plan (1) Cellulitis of right lower extremity: Severe purulent cellulitis of right lower extremity with possible sepsis. SIRS is 2/4 (HR, leukocytosis) Blood cultures and wound cultures still in lab. Continue broad-spectrum antibiotics for now Will follow-up infectious disease consult. Wound care consult Continue pain management with close monitoring of mental status. Avoid opioids with benzodiazepine. Foot x-ray this morning shows nondisplaced fracture of the base of the second metatarsal, distal fibular fracture demonstrates up to 3 mm of lateral displacement. Will get Ortho consult for evaluation. (2) Hypoxia: Differentials include oversedation from narcotics and benzodiazepines as reported in HPI, pleural effusion. Avoid benzos for now as patient is on narcotic for better pain control. Patient reports dyspnea on mild exertion over the past couple of weeks to months. Does not seem overtly fluid overloaded on clinical exam. However, CT chest does show bilateral pleural effusion. BNP is also elevated. Got IV Lasix in ER and is currently net -725 cc and weaned off oxygen. There is a possibility of heart failure even though patient does not have history of CHF. CT PE is negative for PE. Will get 2D echo. Monitor I's and O's (3) Pleural effusion: As in #2 above. 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 Continue oncologic care as outpatient. (5) Chronic pain: Chronically on gabapentin 3 times a day as well as MS Contin 2 times a day. Recent increase in MS Contin to 3 times a day but she has not started taking this yet. Oxycodone is used 4 times a day at 5 mg intermediate release tablet. New Ativan given first was on night before admission was started for anxiety. Continue to hold benzodiazepine for now (6) HTN (hypertension): With low normal BP Continue to hold home lisinopril and amlodipine. (7) DVT prophylaxis: Lovenox Full code Admission and Anticipated Discharge Date Admission Date: October 22, 2019 Subjective Patient seen and examined. Reports pain in right lower extremity. Denies any fevers, chills, nausea, vomiting. Patient reports occasional cough, chronic Reports some dyspnea on exertion [walking 10 steps], over the past couple of weeks. Denies any orthopnea, PND, chest pain Physical Exam Constitutional: well developed and + well hydrated; no acute distress Eyes: PERRL, conjunctivae normal, anicteric sclerae ENMT: external ear and nose normal, oropharynx normal Respiratory: normal respiratory effort; no respiratory distress Auscultation: + diminished lung sounds (Lung bases) Mild crackles lung bases Cardiovascular: Rate/Rhythm: regular rate and regular rhythm Heart Sounds: normal S1 and normal S2 Gastrointestinal (Abdomen): normal bowel sounds, soft, nontender, no hepatosplenomegaly Skin: Hypopigmented maculopapular lesions and growths all of the right lower extremity from the thigh to the foot. Multiple wounds with purulent stained dressings on lower parts of right leg Exquisite Tenderness on moving leg. Neurologic: PERRL, EOMI, accommodation nl, no face palsy, no dysarthria Psychiatric: A+Ox3, euthymic affect Results & Data ([facility]) Vital Signs (Past 12 Hours) Vital Signs Temp Pulse Pulse Resp BP BP Pulse Ox 10/23/19 07:31 37.2 C 93 H 18 109/60 90 10/23/19 04:41 37 C 105 H 20 107/56 L 90 10/23/19 00:47 88 10/23/19 00:02 37.1 C 91 H 18 101/52 L 91 Laboratory Results Short CBC 10/22/19 10/23/19 Range/Units 10:40 07:05 WBC 20.02 H 18.21 H (4.8-10.8) K/uL Hgb 11.3 L 10.9 L (12.0-16.0) g/dL Hct 34.1 L 33.4 L (37-47) % Plt Count 414 H 392 (130-400) K/uL BMP 10/22/19 10/23/19 10:40 07:05 Sodium 137 138 Potassium 4.4 3.8 Chloride 105 103 Carbon Dioxide 27 28 BUN 29 H 22 H Creatinine 1.16 0.94 Glucose 107 H 81 Calcium 8.5 8.4 L Cardiac Enzymes 10/22/19 Range/Units 10:40 Total Creatine Kinase 95 (26-192) U/L CK-MB (CK-2) 2.0 (0.5-3.6) ng/ml Troponin I 0.015 (0-0.045) ng/ml Liver Function 10/22/19 Range/Units 10:40 Total Bilirubin 0.4 (0.2-1) mg/dl AST 16 (15-37) U/L ALT 24 (12-78) U/L Alkaline Phosphatase 62 (45-117) U/L Albumin 1.8 L (3.4-5.0) gm/dl Urine 10/22/19 Range/Units 16:50 Urine Color Yellow Urine Appearance Clear (Clear) Urine pH 5.0 (4.5-7.5) Ur Specific [place] 1.019 (1.000-1.030) Urine Protein Negative (Negative) Urine Glucose (UA) Negative (Negative) Diagnostic Findings XR foot RT min 3V routine CLINICAL HISTORY: R foot pain COMPARISON STUDY: None. FINDINGS: The bones are osteopenic. Diffuse soft tissue swelling within the ankle and foot. There appears to be nondisplaced fracture at the base of the second metatarsal without significant displacement. This is concerning for a Lisfranc fracture/dislocation. Small plantar and posterior calcaneal spurs are noted. There is a bimalleolar ankle fracture. The distal fibular fracture demonstrates up to 3 mm of lateral displacement. The medial malleolus fracture is not significantly displaced. IMPRESSION: 1. There appears to be nondisplaced fracture at the base of the second metatarsal without significant displacement. This is concerning for a Lisfranc fracture/dislocation. 2. Slightly displaced bimalleolar ankle fracture.
[2019-10-23] MEDS: DAPTOmycin 325 MG in SYRINGE 0 ML IV SCH (12:19)
--- NOTE | 2019-10-23 14:44 | Consultation Report ---
DATE OF CONSULTATION: 10/23/2019 HISTORY OF PRESENT ILLNESS: This is a 79-year-old female seen at the request of Dr. Hiwot Polo and Dr. Marcy Villanueva. This 79-year-old female was at home in her usual state of health. She had intense pain in her right leg, swelling in her right leg. She states she had a recent fall. She was trying to get up to go to the bathroom, fell on the right leg, felt pain in the right leg, thought it was likely resultant from her recent cellulitis and other skin issues related to her recurrent squamous cell carcinoma under care with Oncology. Using a drug cemiplimab started in August. She also is currently on broad spectrum antibiotics with daptomycin and Zosyn to treat her sepsis and purulent cellulitis of the right lower extremity. The patient has moderate pain related to the ankle; however, her entire right lower extremity is inflamed and she also has a history of radiation therapy to the right lower extremity. She has multiple comorbidities and is currently resting in her hospital bed. All questions answered. PAST MEDICAL HISTORY: Basal cell carcinoma of the lip; bronchitis; atopy; complex regional pain syndrome; dyslipidemia; gastroesophageal reflux; hypertension; interstitial lung disease; irritable bowel syndrome; peripheral vascular disease; stroke, recovered, continued on chronic Plavix; squamous cell carcinoma right lower extremity; cellulitis right lower extremity; multiple purulent lesions right lower extremity. PAST SURGICAL HISTORY: Excision mass right leg, had cataract surgeries bilateral, history of colonoscopy, history of appendectomy, history of fem-pop bypass. ALLERGIES: TO ADHESIVE TAPES, BENZOIN, HONEY, HYDROGEN PEROXIDE AND CEFTRIAXONE. CURRENT MEDICATIONS: Please note the list in medical record. SOCIAL HISTORY: She is a . She lives at home with her family. She is retired. She is a current cigarette smoker, smoking half pack a day, 3-5 per day. Denies alcohol use. No drug use. PHYSICAL EXAMINATION: GENERAL: This is a 79-year-old female lying supine in hospital room bed. Reasonable comfort based upon her circumstance. She is alert and oriented x3. Some minor episodes of confusion and needs to redirect. EXTREMITIES: Examination of the right lower extremity demonstrates multiple purulent lesions and multiple stages of healing or active discharge. Multiple squamous cell plaques and basal cell plaques. Edema, erythema, no streaking from lower extremity to the level of the knee. Dorsalis pedis and posterior pulses are difficult to palpate. Edema, right ankle and foot. Tender to palpation medial malleolus, lateral malleolus and the mid foot over base of second metatarsal. Limited range of motion both active and passive right ankle. Inability to ambulate due to multiple conditions mentioned above. Radiographs and laboratories reviewed noting minimally displaced bimalleolar ankle fracture, minimal displacement base of second metatarsal fracture, slight widening of Lisfranc's joint without any evidence of collapse. IMPRESSION: 1. Right minimally displaced bimalleolar ankle fracture. 2. Right second metatarsal base fracture, likely Lisfranc ligament injury without significant displacement. 3. Recurrent squamous cell carcinoma under care. 4. Cellulitis with purulent discharge and drainage right lower extremity, multiple lesions, vasculopathy with previous fem-pop graft. 5. Chronic lung disease. RECOMMENDATION: Nonoperative management due to multiple comorbidities mentioned above. High risk for infection with any type of instrumented fixation. Continue IV antibiotics as per Medical Service and Infectious Disease Service. Would recommend continued wound care with wound care therapy and use of a high tide walking boot for management of fractures. Not a surgical candidate. Thank you for the opportunity to consult in care of this patient. We will follow with you. GEMMA
[2019-10-23] MEDS: ENOXAPARIN INJ 40 MG/0.4 ML SYR SQ SCH (19:58)
[2019-10-24] MEDS: PIPERACILLIN/TAZOBACTAM 3.375 GM in DEXTROSE 5% 100 ML IV SCH ×3 (01:41→16:14)
[2019-10-24] MEDS: MoRPHine SULFATE 2 MG/ML CARP IV PRN ×3 (01:48→10:48)
[2019-10-24] MEDS: OXYCODONE HCL IR 5 MG TAB (IMMEDIATE RELEASE) PO PRN ×4 (03:23→23:05)
[2019-10-24 06:04] LABS: Hematocrit (blood only) 33.6 % (37-47); Hemoglobin 11.2 g/dL (12.0-16.0); Mean Corpuscular Hemoglobin 31.4 pg (25-34); Mean Corpuscular Hgb Conc 33.3 g/dL (32-36); Mean Corpuscular Volume 94.1 fL (80-100); Mean Platelet Volume 10.3 fL (7.4-10.4); Platelet Count 401 K/uL (130-400); RDW Coefficient of Variation 14.8 % (11.5-14.5); RDW Standard Deviation 50.5 fL (36.4-46.3); Red Blood Count 3.57 M/uL (4.2-5.4); White Blood Count 15.58 K/uL (4.8-10.8)
[2019-10-24 06:46] LABS: BUN Creatinine Ratio 23.1 (10-20); Calcium 8.4 mg/dl (8.5-10.1); Creatinine Clr Calc Pharmacy 51.8 ml/min; Est GFR (African American) 74.5; Est GFR (Non-African American) 64.3; Potassium 3.8 mmol/L (3.5-5.1)
[2019-10-24] MEDS: MoRPHine SULFATE CR 15 MG TABCR PO SCH ×2 (07:19→18:33)
[2019-10-24] MEDS: METOPROLOL SUCC 25MG EXT REL TAB PO SCH (08:15)
[2019-10-24] MEDS: GABAPENTIN 600 MG TAB PO SCH ×4 (08:15→21:04)
[2019-10-24] MEDS: ASPIRIN 81 MG ECTAB PO SCH (08:15)
[2019-10-24] MEDS: FOLIC ACID 400 MCG TAB PO SCH (08:15)
[2019-10-24] MEDS: PANTOprazole 40 MG TAB PO SCH (08:15)
--- NOTE | 2019-10-24 08:33 | Hospitalist Progress Note ---
Date of Service October 24, 2019 Assessment & Plan (1) Cellulitis of right lower extremity: Severe purulent cellulitis of right lower extremity with possible sepsis. SIRS is 2/4 (HR, leukocytosis) Wound culture growing E. coli and Pseudomonas. Plan to discontinue daptomycin if MRSA swab is negative Continue Zosyn for now. Plan to switch to p.o. based on sensitivities on discharge Will need follow-up with wound care center on discharge for continued management of wounds Discontinue IV opioids Adjust pain medications to minimize doses of opioid (2) Foot fracture, right: Right minimally displaced bimalleolar ankle fracture. Right second metatarsal base fracture, likely Lisfranc ligament injury without significant displacement Ortho recommendations noted. Nonsurgical treatment considering active infection. PT/OT evaluation Will likely need SNF placement on discharge (3) Hypoxia: Differentials include oversedation from narcotics and benzodiazepines as reported in HPI, pleural effusion. Avoid benzos for now as patient is on narcotic for better pain control. Patient reports dyspnea on mild exertion over the past couple of weeks to months. However, CT chest does show bilateral pleural effusion. BNP is also elevated. Got IV Lasix in ER There is a possibility of diastolic heart failure even though patient does not have history of CHF. 2D echo report noted. EF is more than 70%, mild concentric LVH, severely dilated LA Will give a dose of iv lasix today Monitor I's and O's (4) Pleural effusion: As in #2 above. 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 Continue oncologic care as outpatient. (6) Chronic pain: Chronically on gabapentin 3 times a day as well as MS Contin 2 times a day. Recent increase in MS Contin to 3 times a day but she has not started taking this yet. Oxycodone is used 4 times a day at 5 mg intermediate release tablet. New Ativan given first was on night before admission was started for anxiety. Continue to hold benzodiazepine (7) HTN (hypertension): With low normal BP Continue to hold home lisinopril and amlodipine. (8) DVT prophylaxis: Lovenox Full code Admission and Anticipated Discharge Date Admission Date: October 22, 2019 Subjective Patient seen and examined. Patient still reports pain in the right leg. States that she feels better. Foot fracture evaluated by orthopedic surgeon Being managed by nonsurgical treatment considering patient's lower extremity infection. RN reported that patient oxygen level was in the low 90s overnight after getting narcotic pain meds Physical Exam Constitutional: + well hydrated; no acute distress Eyes: PERRL, conjunctivae normal, anicteric sclerae ENMT: external ear and nose normal, oropharynx normal Respiratory: normal respiratory effort; no respiratory distress Auscultation: + diminished lung sounds (lung bases) Cardiovascular: Rate/Rhythm: regular rate and regular rhythm Heart Sounds: no murmur Gastrointestinal (Abdomen): normal bowel sounds, soft, nontender, no hepatosplenomegaly Skin: Hyperpigmented maculopapular lesions and growths all of the right lower extremity from the thigh to the foot. Multiple wounds on lower parts of right leg with clean dressing Neurologic: PERRL, EOMI, accommodation nl, no face palsy, no dysarthria Psychiatric: A+Ox3, euthymic affect Results & Data ([facility]) Vital Signs (Past 12 Hours) Vital Signs Temp Pulse Resp BP Pulse Ox 10/24/19 07:26 36.2 C L 77 16 107/59 L 91 10/24/19 04:19 37 C 71 20 97/56 L 93 10/23/19 23:29 37.2 C 81 18 105/59 L 91 Laboratory Results Short CBC 10/24/19 Range/Units 05:52 WBC 15.58 H (4.8-10.8) K/uL Hgb 11.2 L (12.0-16.0) g/dL Hct 33.6 L (37-47) % Plt Count 401 H (130-400) K/uL BMP 10/24/19 05:52 Sodium 137 Potassium 3.8 Chloride 103 Carbon Dioxide 28 BUN 20 H Creatinine 0.87 Glucose 78 Calcium 8.4 L
[2019-10-24] MEDS ORDERED: FUROSEMIDE 40 MG in SYRINGE 0 ML IV ONE (12:00)
[2019-10-24] MEDS: DAPTOmycin 325 MG in SYRINGE 0 ML IV SCH (12:43)
[2019-10-24] MEDS: ACETAMINOPHEN 325 MG TAB PO SCH ×2 (12:46→18:33)
[2019-10-24] MEDS: ENOXAPARIN INJ 40 MG/0.4 ML SYR SQ SCH ×2 (21:03)
[2019-10-25] MEDS: ACETAMINOPHEN 325 MG TAB PO SCH ×5 (00:04→23:39)
[2019-10-25] MEDS: PIPERACILLIN/TAZOBACTAM 3.375 GM in DEXTROSE 5% 100 ML IV SCH ×4 (00:04→23:37)
[2019-10-25 06:21] LABS: Hematocrit (blood only) 34.1 % (37-47); Hemoglobin 11.4 g/dL (12.0-16.0); Mean Corpuscular Hemoglobin 31.5 pg (25-34); Mean Corpuscular Hgb Conc 33.4 g/dL (32-36); Mean Corpuscular Volume 94.2 fL (80-100); Mean Platelet Volume 10.3 fL (7.4-10.4); Platelet Count 378 K/uL (130-400); RDW Coefficient of Variation 14.9 % (11.5-14.5); RDW Standard Deviation 50.9 fL (36.4-46.3); Red Blood Count 3.62 M/uL (4.2-5.4); White Blood Count 13.86 K/uL (4.8-10.8)
[2019-10-25] MEDS: MoRPHine SULFATE CR 15 MG TABCR PO SCH ×2 (06:44→18:23)
[2019-10-25 07:00] LABS: BUN Creatinine Ratio 21.4 (10-20); Calcium 8.2 mg/dl (8.5-10.1); Creatinine Clr Calc Pharmacy 46.4 ml/min; Est GFR (African American) 66.1; Potassium 3.5 mmol/L (3.5-5.1)
[2019-10-25] MEDS: FOLIC ACID 400 MCG TAB PO SCH (08:07)
[2019-10-25] MEDS: ASPIRIN 81 MG ECTAB PO SCH (08:07)
[2019-10-25] MEDS: GABAPENTIN 600 MG TAB PO SCH ×3 (08:08→21:53)
[2019-10-25] MEDS: METOPROLOL SUCC 25MG EXT REL TAB PO SCH (08:08)
[2019-10-25] MEDS: OXYCODONE HCL IR 5 MG TAB (IMMEDIATE RELEASE) PO PRN ×2 (08:08→14:28)
[2019-10-25] MEDS: PANTOprazole 40 MG TAB PO SCH (08:08)
--- NOTE | 2019-10-25 10:16 | Hospitalist Progress Note ---
Date of Service October 25, 2019 Assessment & Plan (1) Cellulitis of right lower extremity: Severe purulent cellulitis of right lower extremity with possible sepsis. SIRS is 2/4 (HR, leukocytosis) Wound culture growing E. coli and Pseudomonas. Patient's blood pressure has been low normal to hypotensive. Will continue iv Zosyn for now. Plan to switch to p.o. based on sensitivities on discharge Continue wound care Will need follow-up with wound care center on discharge for continued management of wounds Pain is well controlled. (2) Foot fracture, right: Right minimally displaced bimalleolar ankle fracture. Right second metatarsal base fracture, likely Lisfranc ligament injury without significant displacement Ortho recommendations noted. Nonsurgical treatment considering active infection. PT/OT recommended SNF (3) Hypoxia: Differentials include oversedation from narcotics and benzodiazepines as reported in HPI, pleural effusion, Acute diastolic heart failure Avoid benzos for now as patient is on narcotic for better pain control. Patient reports dyspnea on mild exertion over the past couple of weeks to months. However, CT chest does show bilateral pleural effusion. BNP is also elevated. Got IV Lasix in ER Acute diastolic heart failure Patient does not have history of CHF. 2D echo report noted. EF is more than 70%, mild concentric LVH, severely dilated LA Got IV Lasix yesterday. Net -805cc Will give another dose today Monitor I's and O's Wean off oxygen (4) Pleural effusion: As in above. 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 Continue oncologic care as outpatient. (6) Chronic pain: Chronically on gabapentin 3 times a day as well as MS Contin 2 times a day. Recent increase in MS Contin to 3 times a day but she has not started taking this yet. Oxycodone is used 4 times a day at 5 mg intermediate release tablet. New Ativan given first was on night before admission was started for anxiety. Pain well controlled. Avoid benzodiazepines (7) HTN (hypertension): With low normal BP Continue to hold home lisinopril and amlodipine. (8) DVT prophylaxis: Lovenox Full code Admission and Anticipated Discharge Date Admission Date: October 22, 2019 Subjective Patient seen and examined Reports pain right leg is improving. Denies any fevers, chills. Denies any nausea vomiting Denies any chest pain, shortness of breath Physical Exam Constitutional: well developed and + well hydrated; no acute distress Eyes: PERRL, conjunctivae normal, anicteric sclerae ENMT: external ear and nose normal, oropharynx normal Respiratory: normal respiratory effort; no respiratory distress Auscultation: + diminished lung sounds (lung bases) Cardiovascular: Rate/Rhythm: regular rate and regular rhythm Heart Sounds: normal S1 and normal S2; no murmur Gastrointestinal (Abdomen): normal bowel sounds, soft, nontender, no hepatosplenomegaly Musculoskeletal: Hyperpigmented maculopapular lesions and growths all of the right lower extremity from the thigh to the foot. Multiple wounds on lower parts of right leg with clean dressing Tenderness on passive range of movement of the foot. Neurologic: PERRL, EOMI, accommodation nl, no face palsy, no dysarthria Psychiatric: A+Ox3, euthymic affect Results & Data ([facility]) Vital Signs (Past 12 Hours) Vital Signs Temp Pulse Pulse Resp BP Pulse Ox 10/25/19 08:00 75 10/25/19 07:00 37.0 C 71 18 102/59 L 90 10/25/19 03:24 37.0 C 73 21 92/50 L 92 10/25/19 00:00 75 10/24/19 23:22 36.7 C 65 18 91/50 L 93 Laboratory Results Short CBC 10/25/19 Range/Units 06:00 WBC 13.86 H (4.8-10.8) K/uL Hgb 11.4 L (12.0-16.0) g/dL Hct 34.1 L (37-47) % Plt Count 378 (130-400) K/uL BMP 10/25/19 06:00 Sodium 137 Potassium 3.5 Chloride 101 Carbon Dioxide 32 BUN 20 H Creatinine 0.96 Glucose 94 Calcium 8.2 L
[2019-10-25] MEDS ORDERED: FUROSEMIDE 40 MG in SYRINGE 0 ML IV ONE (10:30)
--- NOTE | 2019-10-25 12:02 | Infectious Disease Consult ---
Date of Consultation October 25, 2019 Assessment & Plan (1) Cellulitis of right lower extremity: can continue zosyn while in hospital. would suggest transition to po levaquin upon d/c x 14 days. continue local wound care. History of Present Illness Attending Physician: Vibha Espinoza MD pt admitted with rle cellulitis. wbc initially 20, now 13. undergoing dressing changes. she has a h/o squamous cell ca and is undergoing chemo and xrt. wound culture was done on admission, growing mosqueda sensitive E. coli and pseudomonas. she was initially on dapto and zosyn and is now on zosyn alone, tolerating well. no pain, no abd pain, no n/v/d. no f/c. Flu swab negative, cta negative. Allergies Allergy/AdvReac Type Severity Reaction Status Date / Time adhesive Allergy Intermediate IRRITATES Verified 10/22/19 11:25 SKIN-WITH TAPE benzoin Allergy Intermediate SKIN Verified 10/22/19 11:25 IRRITATION-RASH honey Allergy Intermediate NAUSEA/VOMI Verified 10/22/19 11:25 TING hydrogen peroxide Allergy Intermediate BURNING Verified 10/22/19 11:25 ITCH SKIN ceftriaxone AdvReac Unknown burning at Verified 10/22/19 11:25 site of injection Home Medications Home Medications Medication Instructions Recorded Confirmed Type acetaminophen [Tylenol] 650 mg PO Q6H PRN 01/17/19 10/22/19 History albuterol sulfate [ProAir HFA] 2 puff INHALATION QID PRN 01/17/19 10/22/19 History amlodipine [Norvasc] 5 mg PO QAM 01/17/19 10/22/19 History atorvastatin 80 mg PO HS 01/17/19 10/22/19 History clopidogrel 75 mg PO QAM 01/17/19 10/22/19 History folic acid 0.8 mg PO QAM 01/17/19 10/22/19 History gabapentin 600 mg PO TID 01/17/19 10/22/19 History lisinopril 5 mg PO QAM 01/17/19 10/22/19 History metoprolol succinate 25 mg PO QAM 01/17/19 10/22/19 History omeprazole 20 mg PO DAILY 01/17/19 10/22/19 History aspirin [[place] Aspirin] 81 mg PO QAM 10/07/19 10/22/19 History buuhwsup-mkt-qsol-FA-lutein 2 tab PO BID 10/07/19 10/22/19 History [Centrum Silver Women] silver sulfadiazine 1 applic TOPICAL DIRECTED 10/07/19 10/22/19 History cemiplimab-rwlc 350 mg IV Q21D 10/22/19 10/22/19 History lorazepam 0.5 mg PO Q4H 10/22/19 10/22/19 History morphine 15 mg PO BID 10/22/19 10/22/19 History oxycodone [Roxicodone] 5 mg PO QID PRN 10/22/19 10/22/19 History Patient History Medical History Atopy BCC (basal cell carcinoma), lip Bronchitis HX-YRS AGO-INHALER PRN Complex regional pain syndrome Dyslipidemia Gastro-esophageal reflux Hypertension Interstitial lung disease Irritable bowel syndrome Peripheral vascular disease Stroke (Resolved) 2 YRS AGO-LEFT ARM WAS [id number] PLAVIX SINCE Surgical History H/O excision of mass RIGHT LEG History of cataract surgery R/L History of colonoscopy Hx of appendectomy S/P femoral-popliteal bypass surgery Family History Mother , age 91 surgical complications No problems noted. Father , age 77 CVA No problems noted. Brother Alzheimer disease Sister No problems noted. Sister No problems noted. Sister No problems noted. Sister No problems noted. Sister No problems noted. Brother Diabetes Brother No problems noted. Brother No problems noted. Brother No problems noted. Brother No problems noted. Brother No problems noted. Daughter Cancer ovarian cancer Social History Preferred Language: Welsh Communication Ability: Effective Visual Impairment: No Limitations Hearing Ability: Hard of Hearing Undergraduate Intern Required: No Beliefs That Will Affect Care: None marital status: / Current Living Situation: Family Current Living Situation Comment: retired [employer] current occupation: retired Other Information That Helps Us Care for You: No Feels Safe at Home: Yes Safety Concerns: Feels Safe At This Time Smoking Status: Current some day smoker Tobacco Type: cigarettes ; Age Started Using Tobacco: 20 ; packs per day: 0.5 ; Cigarettes Per Day: 3-5 ; Do You Dip or Chew Tobacco: No ; Second Hand Exposure: No ; Tobacco Cessation Education Requested by Patient: No Hx Alcohol Use: No Hx Substance Use: No Childhood Exposure to Second-Hand Smoke: Yes caffeine: Yes (2 cups per day coffee ) during the past year weight has: remained stable Dental Care, Regularly: No Physical Activity Frequency: 3-4 Times per Week Seatbelt Use: always Sunscreen Use: No Review of Systems Review of Systems: All systems reviewed & are unremarkable except as noted in HPI & below Physical Exam Constitutional: WD/WN, vitals as above Eyes: PERRL, conjunctivae normal, anicteric sclerae ENMT: external ear and nose normal, oropharynx normal Neck: normal visual inspection Respiratory: normal respiratory effort, lungs clear to auscultation Cardiovascular: RRR, no murmur, no edema Gastrointestinal (Abdomen): normal bowel sounds, soft, nontender, no hepatosplenomegaly Musculoskeletal: no cyanosis or clubbing, extremities motor strength 5/5 Skin: + wound (rle dressing c/d/i) Psychiatric: A+Ox3, euthymic affect Results & Data ([facility]) Vital Signs (Past 12 Hours) Vital Signs Temp Pulse Pulse Resp BP Pulse Ox 10/25/19 11:00 37.0 C 72 18 117/71 91 10/25/19 08:00 75 10/25/19 07:00 37.0 C 71 18 102/59 L 90 10/25/19 03:24 37.0 C 73 21 92/50 L 92 Laboratory Results Microbiology 10/22/19 15:30 Leg,Right Gram Stain - Final 10/22/19 15:30 Leg,Right Deep Wound Culture - Final Escherichia coli Pseudomonas aeruginosa 10/22/19 10:40 Blood Aerobic Blood Culture - Preliminary No growth in Aerobic bottle after 48 hours. 10/22/19 10:40 Blood Anaerobic Blood Culture - Preliminary No growth in Anaerobic bottle after 48 hours. 10/22/19 10:45 Blood Aerobic Blood Culture - Preliminary No growth in Aerobic bottle after 48 hours. 10/22/19 10:45 Blood Anaerobic Blood Culture - Preliminary No growth in Anaerobic bottle after 48 hours. PG Care Time/CCT Total # of Minutes Spent Total Time Spent with Patient: Total time spent is greater than 50% in coordination of care (as documented) at patient's floor/unit and/or counseling patient: Coding Level of Care Code 85118 Inpt Consult Level 4 Diagnoses Cellulitis of right lower extremity L03.115
[2019-10-25] MEDS ORDERED: OXYCODONE HCL IR 5 MG TAB (IMMEDIATE RELEASE) PO PRN (16:12)
[2019-10-25] MEDS: ENOXAPARIN INJ 40 MG/0.4 ML SYR SQ SCH (21:39)
[2019-10-26] MEDS: OXYCODONE HCL IR 5 MG TAB (IMMEDIATE RELEASE) PO PRN ×2 (05:12→20:59)
[2019-10-26] MEDS: ACETAMINOPHEN 325 MG TAB PO SCH ×4 (05:59→23:55)
[2019-10-26] MEDS: MoRPHine SULFATE CR 15 MG TABCR PO SCH ×2 (06:35→18:16)
[2019-10-26 06:50] LABS: Hematocrit (blood only) 34.1 % (37-47); Hemoglobin 11.1 g/dL (12.0-16.0); Mean Corpuscular Hemoglobin 30.8 pg (25-34); Mean Corpuscular Hgb Conc 32.6 g/dL (32-36); Mean Corpuscular Volume 94.7 fL (80-100); Mean Platelet Volume 10.4 fL (7.4-10.4); Platelet Count 397 K/uL (130-400); RDW Coefficient of Variation 14.7 % (11.5-14.5); RDW Standard Deviation 51.2 fL (36.4-46.3); White Blood Count 15.14 K/uL (4.8-10.8)
[2019-10-26 07:26] LABS: BUN Creatinine Ratio 18.5 (10-20); Calcium 8.3 mg/dl (8.5-10.1); Creatinine Clr Calc Pharmacy 46.9 ml/min; Est GFR (African American) 66.1; Potassium 3.2 mmol/L (3.5-5.1)
[2019-10-26] MEDS ORDERED: levoFLOXacin 750 MG TAB PO SCH (08:30)
--- NOTE | 2019-10-26 09:21 | Hospitalist Progress Note ---
Date of Service October 26, 2019 Assessment & Plan (1) Cellulitis of right lower extremity: Severe purulent cellulitis of right lower extremity with possible sepsis. SIRS is 2/4 (HR, leukocytosis) Wound culture growing E. coli and Pseudomonas. Patient's blood pressure had been low normal to hypotensive. Currently stable Was initially on IV Zosyn. Switch to levofloxacin this morning. Need to continue antibiotic to complete 14 day therapy ID recs appreciated Continue wound care Will need follow-up with wound care center on discharge for continued management of wounds Pain is well controlled. (2) Foot fracture, right: Right minimally displaced bimalleolar ankle fracture. Right second metatarsal base fracture, likely Lisfranc ligament injury without significant displacement Ortho recommendations noted. Nonsurgical treatment considering active infection. PT/OT recommended SNF (3) Hypoxia: Differentials include oversedation from narcotics and benzodiazepines as reported in HPI, pleural effusion, Acute diastolic heart failure Avoid benzos for now as patient is on narcotic for better pain control. Patient reports dyspnea on mild exertion over the past couple of weeks to months. However, CT chest does show bilateral pleural effusion. BNP is also elevated. Got IV Lasix in ER Acute diastolic heart failure Patient does not have history of CHF. 2D echo report noted. EF is more than 70%, mild concentric LVH, severely dilated LA Continue IV Lasix while inpatient. Plan to discharge on p.o. Lasix Hypokalemic this AM likely from diuretic. Replete Monitor I's and O's Successfully weaned off oxygen (4) Pleural effusion: As in above. 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 Continue oncologic care as outpatient. (6) Chronic pain: Chronically on gabapentin 3 times a day as well as MS Contin 2 times a day. Recent increase in MS Contin to 3 times a day but she has not started taking this yet. Oxycodone is used 4 times a day at 5 mg intermediate release tablet. New Ativan given first was on night before admission was started for anxiety. Pain well controlled. Avoid benzodiazepines even on discharge (7) HTN (hypertension): Stable Continue to hold home lisinopril and amlodipine. If BP remains controlled, may continue to hold this on discharge Diarrhea C. diff is negative Trial of loperamide Plan for discharge to SNF tomorrow (8) DVT prophylaxis: Lovenox Full code Admission and Anticipated Discharge Date Admission Date: October 22, 2019 Subjective Patient seen and examined. Reported some episodes of diarrhea overnight associated with some abd discomfort. C. difficile was negative. Denied any nausea, vomiting, fevers or chills Physical Exam Constitutional: well developed and + well hydrated; no acute distress Eyes: PERRL, conjunctivae normal, anicteric sclerae ENMT: external ear and nose normal, oropharynx normal Respiratory: normal respiratory effort; no respiratory distress Auscultation: + diminished lung sounds (lung bases) Cardiovascular: Rate/Rhythm: regular rate and regular rhythm Heart Sounds: normal S1 and normal S2; no murmur Gastrointestinal (Abdomen): normal bowel sounds, soft, nontender, no hepatosplenomegaly Musculoskeletal: Clean dressing over right leg. Pain on passive ROM of right foot Neurologic: PERRL, EOMI, accommodation nl, no face palsy, no dysarthria Psychiatric: A+Ox3, euthymic affect Results & Data ([facility]) Vital Signs (Past 12 Hours) Vital Signs Temp Pulse Pulse Resp BP Pulse Ox 10/26/19 07:32 82 10/26/19 07:26 37.4 C 81 18 108/56 L 88 L 10/26/19 03:58 37.3 C 76 20 109/61 90 10/25/19 23:53 37.1 C 75 20 108/64 92 10/25/19 23:39 77 Laboratory Results Short CBC 10/26/19 Range/Units 06:35 WBC 15.14 H (4.8-10.8) K/uL Hgb 11.1 L (12.0-16.0) g/dL Hct 34.1 L (37-47) % Plt Count 397 (130-400) K/uL BMP 10/26/19 06:35 Sodium 137 Potassium 3.2 L Chloride 101 Carbon Dioxide 31 BUN 18 Creatinine 0.96 Glucose 87 Calcium 8.3 L
[2019-10-26] MEDS: FOLIC ACID 400 MCG TAB PO SCH (09:23)
[2019-10-26] MEDS: METOPROLOL SUCC 25MG EXT REL TAB PO SCH (09:23)
[2019-10-26] MEDS: PANTOprazole 40 MG TAB PO SCH (09:23)
[2019-10-26] MEDS: GABAPENTIN 600 MG TAB PO SCH ×3 (09:23→20:57)
[2019-10-26] MEDS: ASPIRIN 81 MG ECTAB PO SCH (09:23)
[2019-10-26] MEDS: LOPERAMIDE HCL 2 MG CAP PO PRN (09:24)
[2019-10-26] MEDS ORDERED: POTASSIUM CHLORIDE PWD 20 MEQ PACK PO STA (12:42)
[2019-10-26] MEDS ORDERED: FUROSEMIDE 40 MG in SYRINGE 0 ML IV ONE (13:00)
[2019-10-26] MEDS: ENOXAPARIN INJ 40 MG/0.4 ML SYR SQ SCH (20:56)
[2019-10-27] MEDS: LOPERAMIDE HCL 2 MG CAP PO PRN ×2 (02:20→10:58)
[2019-10-27] MEDS: OXYCODONE HCL IR 5 MG TAB (IMMEDIATE RELEASE) PO PRN ×3 (03:25→12:34)
[2019-10-27 04:51] VITALS: O2SAT 90
[2019-10-27 06:26] LABS: Hematocrit (blood only) 34.6 % (37-47); Hemoglobin 11.5 g/dL (12.0-16.0); Mean Corpuscular Hemoglobin 31.7 pg (25-34); Mean Corpuscular Hgb Conc 33.2 g/dL (32-36); Mean Corpuscular Volume 95.3 fL (80-100); Mean Platelet Volume 10.4 fL (7.4-10.4); Platelet Count 386 K/uL (130-400); RDW Coefficient of Variation 14.8 % (11.5-14.5); Red Blood Count 3.63 M/uL (4.2-5.4); White Blood Count 13.49 K/uL (4.8-10.8)
[2019-10-27] MEDS: ACETAMINOPHEN 325 MG TAB PO SCH ×2 (06:39→11:56)
[2019-10-27] MEDS: MoRPHine SULFATE CR 15 MG TABCR PO SCH (06:39)
[2019-10-27 07:01] LABS: Calcium 8.7 mg/dl (8.5-10.1); Creatinine Clr Calc Pharmacy 49.8 ml/min; Est GFR (African American) 71.5; Est GFR (Non-African American) 61.7; Magnesium 2.1 mg/dl (1.8-2.4); Potassium 3.3 mmol/L (3.5-5.1)
[2019-10-27 07:02] LABS: Phosphorus 3.1 mg/dl (2.5-4.9)
[2019-10-27] MEDS: GABAPENTIN 600 MG TAB PO SCH ×2 (07:41→13:48)
[2019-10-27] MEDS: FOLIC ACID 400 MCG TAB PO SCH (07:41)
[2019-10-27] MEDS: ASPIRIN 81 MG ECTAB PO SCH (07:41)
[2019-10-27] MEDS: METOPROLOL SUCC 25MG EXT REL TAB PO SCH (07:42)
[2019-10-27] MEDS: PANTOprazole 40 MG TAB PO SCH (07:42)
[2019-10-27] MEDS ORDERED: POTASSIUM CHLORIDE 20 MEQ TABCR PO STA (08:02)
[2019-10-27] MEDS ORDERED: levoFLOXacin 750 MG TAB PO SCH (10:15)
[2019-10-27] MEDS ORDERED: FUROSEMIDE 40 MG TAB PO ONE (11:29)
[2019-10-27 11:41] VITALS: BP 101/57; TEMP 98.2
--- NOTE | 2019-10-27 11:59 | Hospitalist Progress Note ---
Date of Service October 27, 2019 Assessment & Plan (1) Cellulitis of right lower extremity: Right lower extremity cellulitis Possible sepsis Wound culture:E. coli and Pseudomonas. Blood culture: Negative to date IV Zosyn transitioned to levofloxacin Appreciate ID input Continue levofloxacin--need to complete 14-day therapy Continue wound care Needs follow-up with ID, wound care upon discharge (2) Foot fracture, right: Right Displaced bimalleolar ankle fracture Right second metatarsal base fracture, likely Lisfranc ligament injury without significant displacement. --R foot X ray:There appears to be nondisplaced fracture at the base of the se cond metatarsal without significant displacement. This is concerning for a Lisfranc fracture/dislocation. Slightly displaced bimalleolar ankle fracture. Nonoperative management--not a surgical candidate Appreciate Orthopedics Input High tide walking boot for ambulation Continue pain control, PT OT (3) Hypoxia: Acute diastolic heart failure Differential: Oversedation from narcotics and benzodiazepines, pleural effusion, Acute diastolic heart failure CTA:Bilateral pleural effusions with bibasilar infiltrative change. Less prominent infiltrative change overlying the pulmonary apices. A component of congestive failure/pulmonary edema is not entirely excluded. ECHO:EF is more than 70%, mild concentric LVH, severely dilated LA, severe mitral annular calcification, mild mitral stenosis, trace TR. IV Lasix transitioned to PO Lasix 40mg daily Hypoxia resolved Will need evaluation by cardiology upon discharge Hypokalemia likely due to diuretic Replace electrolytes as needed (4) Pleural effusion: As in above. (5) Squamous cell carcinoma of skin of right lower extremity: Continue Cemiplimab, started in August--last dose on 10/08/2019 Follows with Oncology as outpatient (6) Chronic pain: Chronically on gabapentin and MS Contin Continue Pain control Avoid benzodiazepines as able (7) HTN (hypertension): BP better today lisinopril and amlodipine on hold Diarrhea Stool for C. diff is negative Continue Imodium PRN (8) DVT prophylaxis: Lovenox SQ Code Status Full code Disposition Needs SNF placement Admission and Anticipated Discharge Date Admission Date: October 22, 2019 Subjective Patient is seen and examined at bedside States having right leg pain Diarrhea slowly improving Denies any chest pain, shortness of breath, dizziness, nausea, abdominal pain Blood pressure more stable today Review of Systems Review of Systems: All systems reviewed & are unremarkable except as noted in HPI & below Physical Exam Physical Exam: Physical Exam: Vitals signs as noted above General Appearance:Moderately built and nourished, no apparent distress Head: normocephalic, Atraumatic Eyes: normal inspection, EOMI Neck: supple, Trachea midline Respiratory/Chest: Decreased breath sounds, CTA Cardiovascular: S1, S2, No murmur Abdomen/GI:Soft, Non tender, Bowel sounds present Extremities/Musculoskelatal:RLE in dressing, no edema Neurologic/Psych:AAOX3, grossly no focal neurological deficits Skin: normal color, warm Results & Data ([facility]) Vital Signs (Past 12 Hours) Vital Signs Temp Pulse Resp BP BP Pulse Ox 10/27/19 11:40 36.8 C 56 L 18 101/57 L 90 10/27/19 07:25 36.9 C 80 18 109/61 90 10/27/19 04:00 36.8 C 79 18 93/53 L 90 Laboratory Results Short CBC 10/27/19 Range/Units 06:06 WBC 13.49 H (4.8-10.8) K/uL Hgb 11.5 L (12.0-16.0) g/dL Hct 34.6 L (37-47) % Plt Count 386 (130-400) K/uL BMP 10/27/19 06:06 Sodium 137 Potassium 3.3 L Chloride 103 Carbon Dioxide 33 H BUN 18 Creatinine 0.90 Glucose 87 Calcium 8.7
[2019-10-27] MEDS ORDERED: LACTOBACILLUS ACIDOPHILUS (FLORANEX) TAB PO SCH (12:00)
--- NOTE | 2019-10-27 13:45 | Discharge Summary ---
Date of Service October 27, 2019 Admission HPI Per Admitting Provider 79-year-old female with a history of squamous cell carcinoma to her right lower extremity with recurrence. She has a history of squamous cell carcinoma of the right lower extremity diagnosed February 2019 status post radiation treatment. She had recurrent disease on the right thigh return and is now undergoing immunotherapy with Cemiplimab, started in August 2019. She is intermittently somnolent today and was started on Ativan last night with the first dose and only dose being given last night by her daughter. She is otherwise on long- acting MS Contin and takes it at 7A and 7P. She was increased to take it now 3 times a day at 07 100, 1500, 2300 but has not started that regimen yet. She also takes oxycodone 4 times a day as needed and has needed it 4 times a day recently. She no longer takes tramadol since the long-acting morphine was started. Today she reports intense pain in her right leg. She reports swelling in the right leg. She denies any shortness of breath, cough, fevers, chills recently and this was corroborated by her daughter who lives with her. She was found to be hypoxic on the scene with a 68% room air oxygen saturation per EMS. She remains on 2 LPM via nasal cannula and has recently received a neb treatment in the ER. She is not tachypneic and lungs are clear outside of some crackles at the bases bilaterally. She has a known history of interstitial lung disease and has not been using her inhaler or nebulizer treatments at home in fact, the daughter states they have been out of that medication and have not needed it. The patient is seen by Bobbi at home regularly who last saw her on 10/19/2019. Her right lower extremity wounds are managed by a home health agency who reportedly last changed her bandage on 10/20/2019. She has multiple chronic- appearing, crusted wounds with an open area over her right patella and multiple open ulcerations with purulent drainage on her distal right lower extremity. Admission Exam Per Admitting Provider Physical Exam Physical Exam: CONSTITUTIONAL: WNWD, vitals as above, generally well- appearing but intermittently somnolent EYES: pupils are equal and round bilaterally, normal conjunctivae, no scleral icterus ENT: nebulizer treatment ongoing but mucous membranes appear moist. NECK: trachea midline, no lymphadenopathy, normal thyroid RESPIRATORY: bilateral crackles at bases, clear to auscultation bilaterally, no crackles, rales or wheezes, normal respiratory effort CARDIOVASCULAR: regular rate and rhythm, S1 and 2 heard without murmurs, gallops or rubs, no JVD, no peripheral edema, no carotid bruits CHEST: inspection of chest was normal (+pacemaker, +port) GASTROINTESTINAL: normal bowel sounds, soft, nontender, no hepatomegaly, no guarding MUSCULOSKELETAL: strength 5/5 throughout, head is normocephalic and atraumatic, neck supple, normal palpation of chest wall without tenderness SKIN: warm and dry, no rashes NEUROLOGIC: patellar DTRs 2+ bilat. PERRL, EOMI, no facial palsy, no dysarthria. Touch, pain and proprioception normal. CN 2-12 grossly intact, no sensory deficit, normal cognition, normal speech, no tremor PSYCHIATRIC: alert cooperative and oriented to person, place and time. Euthymic mood, makes good eye contact, language grossly intact, recent and remote memory grossly intact. LYMPHATIC: no LAD Principal Diagnosis Right lower extremity cellulitis Possible sepsis Right Displaced bimalleolar ankle fracture Right second metatarsal base fracture, likely Lisfranc ligament injury without significant displacement. Acute diastolic heart failure Discharge Data Allergies Allergy/AdvReac Type Severity Reaction Status Date / Time adhesive Allergy Intermediate IRRITATES Verified 10/22/19 11:25 SKIN-WITH TAPE benzoin Allergy Intermediate SKIN Verified 10/22/19 11:25 IRRITATION-RASH honey Allergy Intermediate NAUSEA/VOMI Verified 10/22/19 11:25 TING hydrogen peroxide Allergy Intermediate BURNING Verified 10/22/19 11:25 ITCH SKIN ceftriaxone AdvReac Unknown burning at Verified 10/22/19 11:25 site of injection Consultations 10/22/19 12:24 ED Decision to Admit Stat 10/22/19 14:48 Consult Case Management - Discharge Planning Routine Consult Infectious Diseases Routine 10/23/19 10:06 Consult Orthopedic Surgery Routine Procedures Performed Chest CTA: 1. Study is negative for pulmonary embolus. 2. Bilateral pleural effusions with bibasilar infiltrative change. 3. Less prominent infiltrative change overlying the pulmonary apices. 4. A component of congestive failure/pulmonary edema is not entirely excluded. Venous Doppler; No DVT within the right lower extremity Right Foot X ray: 1. There appears to be nondisplaced fracture at the base of the second metatarsal without significant displacement. This is concerning for a Lisfranc fracture/dislocation. 2. Slightly displaced bimalleolar ankle fracture. Ordered Studies 10/22/19 11:20 CT angio chest PE protocol Stat 10/22/19 12:15 US venous doppler LE RT Stat Hospital Course (1) Cellulitis of right lower extremity: Right lower extremity cellulitis Possible sepsis Wound culture:E. coli and Pseudomonas. Blood culture: Negative to date IV Zosyn transitioned to levofloxacin Appreciate ID input Continue levofloxacin--need to complete 14-day therapy (Day #2/14) Continue wound care Needs follow-up with ID, wound care upon discharge (2) Foot fracture, right: Right Displaced bimalleolar ankle fracture Right second metatarsal base fracture, likely Lisfranc ligament injury without significant displacement. --R foot X ray:There appears to be nondisplaced fracture at the base of the second metatarsal without significant displacement. This is concerning for a Lisfranc fracture/dislocation. Slightly displaced bimalleolar ankle fracture. Nonoperative management--not a surgical candidate Appreciate Orthopedics Input High tide walking boot for ambulation Continue pain control, PT OT (3) Hypoxia: Acute diastolic heart failure Differential: Oversedation from narcotics and benzodiazepines, pleural effusion, Acute diastolic heart failure CTA:Bilateral pleural effusions with bibasilar infiltrative change. Less prominent infiltrative change overlying the pulmonary apices. A component of congestive failure/pulmonary edema is not entirely excluded. ECHO:EF is more than 70%, mild concentric LVH, severely dilated LA, severe mitral annular calcification, mild mitral stenosis, trace TR. IV Lasix transitioned to PO Lasix 40mg daily Hypoxia resolved Will need evaluation by cardiology upon discharge Hypokalemia likely due to diuretic Replace electrolytes as needed (4) Pleural effusion: As in above. (5) Squamous cell carcinoma of skin of right lower extremity: Continue Cemiplimab, started in August--last dose on 10/08/2019 Follows with Oncology as outpatient (6) Chronic pain: Chronically on gabapentin and MS Contin Continue Pain control Avoid benzodiazepines as able (7) HTN (hypertension): BP better today lisinopril and amlodipine on hold Will discontinue amlodipine upon discharge as well Will decrease lisinopril to 2.5 mg daily Diarrhea Stool for C. diff is negative Continue Imodium PRN (8) DVT prophylaxis: Lovenox SQ Code Status Full code Disposition Needs SNF placement Total Time Total Time Spent Total Time Spent (In Minutes): 39 minutes Total Time Includes: Examination of the Patient, Discharge Planning, Medication Reconciliation, Communication With Other Providers and Other Discharge Plan Discharge Items Patient Disposition: Transfer Longterm Fac Reason For Visit: Leg pain Discharge Diagnosis: Cellulitis of right lower leg Acute diastolic heart failure Right foot fracture Activity: As commented below Activity Comment: Per physical therapist recommendations Non-emergency contact: Primary Care Provider and Senior Environmental Scientist Call non-emergency contact if: you have any medication questions Follow-up/Referrals: Marcy Villanueva DO [Primary Care Provider] - Diet: Heart Healthy Addtl Attending Provider Instructions: Follow-up with your primary care physician Dr. Marcy Villanueva upon discharge from Rehab Facility Follow up with your Senior Environmental Scientist in 2-4 weeks for evaluation of heart failure as advised Follow up with Wound Clinic in 2 weeks Continue wound care at Rehab facility Complete the antibiotic course-- Levofloxacin 750mg daily for 12 more days as recommended by Infectious Disease Seek immediate medical attention if your symptoms reoccur or worsen Call your Primary Care doctor if any of the following symptoms or problems start or get worse: * Shortness of breath or difficulty breathing * Wake up at night short of breath * Chest pain * Cough * Swelling of your hands, feet, or legs * More fatigued or tired with your normal activity * Palpitations - sudden fast heart beats WEIGHT * Weigh yourself every morning after using the bathroom. * Use the same scale. * Wear the same amount of clothing. * Write your weight down on a chart. * Call your Primary Care doctor if you gain more than 2-3 pounds in 1-2 days. MEDICATIONS * Use this discharge instruction sheet for medication instructions. * Take your medications at the time your doctor ordered. * Do not skip a dose of your medicines. * If you miss a dose of medicine, take it as soon as possible, but DO NOT DOUBLE A DOSE. * Read your medicine information when you get home. * Know all of the side effects of your medicine. If in doubt, ask your pharmacist * Call your Primary Care doctor's office if you have any side effects. * Be sure all of your doctors know what medicine and herbs you take (including cold, flu, and herbal medicine). Take the following with you to your follow-up doctor appointments: * Weight Chart * Medication List * List of questions Do not drink excessive alcohol, beer or wine. Mrs Elaine. You came to the hospital for severe right leg pain. You were evaluated and found to have infection of your leg and right foot fractures. You were started on antibiotics. Your oxygen level was also low due to fluid in your chest and congestive heart failure. You were started on injection diuretics. Please complete the antibiotics on discharge Please take all medications as prescribed. You will need to continue wound dressing at rehab and follow up with wound care center. It was a pleasure taking care of you Pending Studies at Discharge: No Stand-Alone Forms: My [facility] Skilled Items Patient informed of condition?: Yes DNR: No Discharge Level of Care: Skilled Communicable Disease: No Discharge Prognosis: Stable Lines: None Urinary Catheter: No Medications and DC Order Prescriptions: New levofloxacin 750 mg Tablet 750 mg PO DAILY Qty: 12 RF: 0 furosemide 40 mg Tablet 40 mg PO QAM Qty: 30 RF: 0 loperamide 2 mg Capsule 2 mg PO Q8H PRN (Reason: loose stool) Qty: 30 RF: 0 Lactobacillus acidoph-L.bulgar [Floranex] 1 million cell Tablet 4 tab PO QIDM Qty: 60 RF: 0 Continued aspirin [Camanche Aspirin] 81 mg Tablet,Delayed Release (Dr/Ec) 81 mg PO QAM RF: 0 Centrum Silver Women 8 mg iron-400 mcg-300 mcg Tablet 2 tab PO BID RF: 0 silver sulfadiazine 1 % cream 1 applic TOPICAL DIRECTED RF: 0 cemiplimab-rwlc 50 mg/mL Solution 350 mg IV Q21D RF: 0 morphine 15 mg tablet extended release 15 mg PO BID Qty: 6 RF: 0 oxycodone [Roxicodone] 5 mg tablet 5 mg PO QID PRN (Reason: pain) Qty: 10 RF: 0 atorvastatin 80 mg Tablet 80 mg PO HS RF: 0 acetaminophen [Tylenol] 325 mg Tablet 650 mg PO Q6H PRN (Reason: Pain) RF: 0 gabapentin 600 mg Tablet 600 mg PO TID RF: 0 clopidogrel 75 mg Tablet 75 mg PO QAM RF: 0 metoprolol succinate 25 mg Tablet Extended Release 24 Hr 25 mg PO QAM RF: 0 albuterol sulfate [ProAir HFA] 90 mcg/actuation Hfa Aerosol Inhaler 2 puff INHALATION QID PRN (Reason: Shortness Of Breath Or Wheezing) RF: 0 folic acid 0.8 mg Capsule 0.8 mg PO QAM RF: 0 omeprazole 20 mg Tablet,Delayed Release (Dr/Ec) 20 mg PO DAILY RF: 0 Changed lisinopril 5 mg Tablet 2.5 mg PO QAM Qty: 0 RF: 0 Discontinued lorazepam 0.5 mg tablet 0.5 mg PO Q4H RF: 0 amlodipine [Norvasc] 5 mg Tablet 5 mg PO QAM RF: 0 Discharge Orders: Discharge Order (Routine); Ordered 10/27/19 Ordered By: Rob Jarrell Admission Data Admit Date/Time: 10/22/19 13:07 Attending Provider: Rob Jarrell Admit Provider: Hiwot Polo Primary Care Provider: Marcy Villanueva Other Providers: Hiwot Polo ; Julia Wei ; Jace Buckner ; [facility] [place] ; [facility] ; [facility] ; [facility],
[2019-10-27] MEDS ORDERED: MoRPHine SULFATE 2 MG/ML CARP IV STA (14:07)
[2019-10-27 15:14] VITALS: PULSE 76
[2019-10-28] MEDS ORDERED: FUROSEMIDE 40 MG TAB PO SCH (09:00)
== END 2019-10-27 16:16 | DRG 871 ==
LOC: ED 10:27 → SUATTDRO 13:07 → 2N 13:07